=== PATIENT | male | born 1945 | race Two or more races ===

== ENCOUNTER 2018-03-10 04:17 | Emergency (ER) | payer MEDICARE, MEDICAID ==
[~2018-03-10] VITALS: Ht 165.1 cm; Wt 72.6 kg
[2018-03-10 07:42] VITALS: BP 138/78
== END 2018-03-10 07:58 | disposition home or self-care (01) ==
LOC: EDBD 04:19 → ER 04:19
DX: R07.89 Other chest pain (principal); M79.1 Myalgia
CPT/HCPCS: 71111

== ENCOUNTER 2018-12-17 14:23 | Emergency (ER) | payer MEDICAID, MEDICARE, OTHER ==
[~2018-12-17] VITALS: Ht 165.1 cm; Wt 72.6 kg
[2018-12-17 15:03] VITALS: BP 149/74
== END 2018-12-17 16:30 | disposition home or self-care (01) ==
LOC: ER 14:28
DX: S20.221A Contusion of right back wall of thorax, initial encounter (principal); V87.8XXA Person injured in other specified noncollision transport accidents involving motor vehicle (traffic), initial encounter; Y93.89 Activity, other specified; Y92.89 Other specified places as the place of occurrence of the external cause; Y99.8 Other external cause status
CPT/HCPCS: 71046; 71101

== ENCOUNTER → 2019-11-01 | Emergency (ER) | payer OTHER ==
[~2019-11-01] VITALS: Ht 165.1 cm; Wt 72.6 kg
[~2019-11-01] MED LIST: CIPR500T4 PO; HYDROmorphone HCL 2 MG/ML VL IV ONE; METOCLOPRAMIDE HCL 5MG/ml INJ 2ml VIAL IV ONE; SODIUM CHLORIDE 0.9% 1,000 ML IV ONE; TAMSULOSIN HYDROCHLORIDE 0.4 MG CAP PO ONE
[2019-11-01 09:17] VITALS: BP 131/66
[2019-11-01 09:31] LABS: Basophils # (auto) 0 10 ^3/uL (0-0.2); Basophils % (auto) 0.1 % (0.0-2.0); Eosinophils # (auto) 0 10 ^3/uL (0-0.8); Eosinophils % (auto) 0.4 % (0.0-7.0); Hematocrit 47.3 % (41.0-53.0); Hemoglobin 16.2 g/dL (13.5-17.5); Lymphocytes # (auto) 0.7 10 ^3/uL (0.4-5.4); Lymphocytes % (auto) 6.8 % (10.0-50.0); Mean Corpuscular Hemoglobin 30.7 pg (28.0-32.0); Mean Corpuscular Hgb Conc. 34.3 g/dL (32.0-36.0); Mean Corpuscular Volume 89.5 fL (80.0-100.0); Monocytes # (auto) 0.5 10 ^3/uL (0-1.3); Monocytes % (auto) 4.8 % (0.0-12.0); Neutrophils # (auto) 8.9 10 ^3/uL (1.6-8.6); Neutrophils % (auto) 87.9 % (37.0-80.0); Platelet Count (auto) 202 10^3/uL (140-450); Red Blood Cells 5.29 10^6/uL (4.5-5.90); Red Cell Distribution Width 13.4 % (11.8-14.3); White Blood Cell 10.1 10^3/uL (4.4-10.8)
[2019-11-01 09:32] LABS: Urine Bacteria NONE SEEN /hpf (None Seen); Urine Blood 3+ /uL (Negative); Urine Specific Gravity 1.012 (1.001-1.035); Urine WBC 10 /hpf (0 - 3)
[2019-11-01 09:55] LABS: Albumin 3.8 g/dL (3.4-5.0); Calcium 9.1 mg/dL (8.5-10.1); Potassium 4.3 mmol/L (3.5-5.1)
[2019-11-01 10:00] LABS: BUN/Creatinine Ratio 14.3; Bilirubin, Total 0.8 mg/dL (0.2-1.0); Total Protein 7.3 g/dL (6.4-8.2)
== END | disposition home or self-care (01) ==
LOC: ER 08:21
DX: N40.1 Benign prostatic hyperplasia with lower urinary tract symptoms (principal); R33.8 Other retention of urine; R31.9 Hematuria, unspecified; R73.9 Hyperglycemia, unspecified
CPT/HCPCS: 36415; 51702; 80053; 81001; 83690; 83735; 85025; 96374; 96375; 99284; J1170; J2765; J7030

== ENCOUNTER 2019-11-06 18:25 | Inpatient (IN) | payer OTHER ==
[~2019-11-06] VITALS: Ht 165.1 cm; Wt 68.9 kg
[2019-11-06 20:17] LABS: Urine Bacteria NONE SEEN /hpf (None Seen); Urine Blood 3+ /uL (Negative); Urine Mucus FEW (None Seen); Urine Specific Gravity 1.023 (1.001-1.035); Urine WBC 23 /hpf (0 - 3)
[2019-11-06] MEDS ORDERED: SODIUM CHLORIDE 0.9% 1,000 ML IV ONE (22:00)
[2019-11-06] MEDS ORDERED: HYDROcodone-ACET 5/325MG TAB PO PRN (22:00)
[2019-11-06] MEDS ORDERED: MORPHINE SULF INJ 2 MG/ML SYRINGE 1ML IV PRN (22:00)
[2019-11-06] MEDS ORDERED: DEXTROSE (50%) 50ML SYRG IV PRN (22:00)
[2019-11-06] MEDS ORDERED: LACTULOSE 20Gm/30ML SOLN PO ONE (22:00)
[2019-11-06] MEDS ORDERED: ACETAMINOPHEN 325 MG TAB PO PRN (22:00)
[2019-11-06] MEDS ORDERED: ONDANSETRON HCL 4 MG/2 ML VIAL IV PRN (22:00)
[2019-11-06 22:28] LABS: Basophils # (auto) 0 10 ^3/uL (0-0.2); Basophils % (auto) 0.2 % (0.0-2.0); Eosinophils # (auto) 0.3 10 ^3/uL (0-0.8); Eosinophils % (auto) 5.3 % (0.0-7.0); Hematocrit 45.4 % (41.0-53.0); Hemoglobin 15.7 g/dL (13.5-17.5); Lymphocytes % (auto) 15.8 % (10.0-50.0); Mean Corpuscular Hemoglobin 31.1 pg (28.0-32.0); Mean Corpuscular Hgb Conc. 34.5 g/dL (32.0-36.0); Mean Corpuscular Volume 89.9 fL (80.0-100.0); Monocytes # (auto) 0.6 10 ^3/uL (0-1.3); Neutrophils # (auto) 4.6 10 ^3/uL (1.6-8.6); Neutrophils % (auto) 69.7 % (37.0-80.0); Nucleated Red Blood Cells % 0.1 %; Platelet Count (auto) 205 10^3/uL (140-450); Red Blood Cells 5.05 10^6/uL (4.5-5.90); Red Cell Distribution Width 13.5 % (11.8-14.3); White Blood Cell 6.5 10^3/uL (4.4-10.8)
[2019-11-06 22:45] LABS: Albumin 3.2 g/dL (3.4-5.0); Calcium 8.9 mg/dL (8.5-10.1); Potassium 4.2 mmol/L (3.5-5.1)
[2019-11-06 22:49] LABS: BUN/Creatinine Ratio 20.6; Bilirubin, Total 0.5 mg/dL (0.2-1.0); INR 1.01 (0.9-1.15); Total Protein 7.3 g/dL (6.4-8.2)
--- NOTE | 2019-11-06 22:50 | NUR ---
MS admit from ER Patient admitted to tele/MS. Patient oriented to primary RN, unit, room, bed, and unit policies regarding patient care and visiting hours. Patient weighed by bedscale and encouraged to call if they need something. All questions and concerns addressed, patient verbalized understanding. At this time patient has no s/s of distress, SOB, or pain. Safety precautions maintained bed is in lowest position and bed rails 2x. Call light and bedside table are within reach.
[2019-11-06 23:30] VITALS: BP 134/75
[2019-11-06] MEDS: DOCUSATE SOD 100 MG CAP PO SCH (23:45)
[2019-11-06] MEDS: TAMSULOSIN HYDROCHLORIDE 0.4 MG CAP PO SCH (23:47)
[2019-11-06] MEDS: FINASTERIDE 5 MG TAB PO SCH (23:48)
[2019-11-06] MEDS: SENNA 8.6 MG TAB PO SCH (23:49)
[2019-11-06] MEDS: levoFLOXacin 750MG 150 ML IV SCH (23:50)
[2019-11-06] MEDS ORDERED: CIPR500T4 PO (23:51)
[2019-11-07] MEDS: ACCU-CHEK COMFORT CURVE STRIP VI SCH ×3 (00:17→08:00)
[2019-11-07] MEDS: InsuLIN REG 1unit/0.01ml Soln (100units/ml) SC SCH ×6 (04:00→20:00)
[2019-11-07 05:00] VITALS: BP 115/67
[2019-11-07 07:22] LABS: Basophils # (auto) 0 10 ^3/uL (0-0.2); Basophils % (auto) 0.3 % (0.0-2.0); Eosinophils # (auto) 0.2 10 ^3/uL (0-0.8); Eosinophils % (auto) 3.9 % (0.0-7.0); Hematocrit 45.1 % (41.0-53.0); Hemoglobin 15.8 g/dL (13.5-17.5); Lymphocytes # (auto) 0.6 10 ^3/uL (0.4-5.4); Lymphocytes % (auto) 10.6 % (10.0-50.0); Mean Corpuscular Hemoglobin 31.3 pg (28.0-32.0); Mean Corpuscular Volume 89.4 fL (80.0-100.0); Monocytes # (auto) 0.5 10 ^3/uL (0-1.3); Monocytes % (auto) 8.3 % (0.0-12.0); Neutrophils # (auto) 4.6 10 ^3/uL (1.6-8.6); Neutrophils % (auto) 76.9 % (37.0-80.0); Nucleated Red Blood Cells % 0.1 %; Platelet Count (auto) 203 10^3/uL (140-450); Red Blood Cells 5.04 10^6/uL (4.5-5.90); Red Cell Distribution Width 13.6 % (11.8-14.3)
[2019-11-07 07:39] LABS: BUN/Creatinine Ratio 21.8; Calcium 8.5 mg/dL (8.5-10.1); Potassium 3.9 mmol/L (3.5-5.1)
--- NOTE | 2019-11-07 08:00 | NUR ---
ASSESSMENT NOTE PT IS ALERT ORIENTED X4, RESTING IN BED COMFORTABLY, NO DISTRESS NOTED, ABLE TO SELF REPOSITION AND VERBALIS HIS DEMANDS, PAIN 0/10, CALL LIGHT WITHIN REACH
--- NOTE | 2019-11-07 09:30 | NUR ---
BM PT STATED I HAD 8 BOWEL MOVEMENT BETWEEN 5 IN THE MORNING AND NOW
--- NOTE | 2019-11-07 10:00 | NUR ---
GONZALEZ CATHETER PT HAS A LEG GONZALEZ BAG FROM HOME, SWITCHED FROM LEG BAG, TO GRAVITY BAG, PT VERBALIS UNDERSTANDING
[2019-11-07 10:36] VITALS: BP 106/63
--- NOTE | 2019-11-07 12:05 | NUR ---
PAGE DR DARNELL AGAIN TO OBTAIN A DIET ORDER
--- NOTE | 2019-11-07 12:15 | NUR ---
DR DARNELL IS HERE FOLLOWING UP ON PT
[2019-11-07] MEDS: DOCUSATE SOD 100 MG CAP PO SCH ×2 (12:20→22:17)
[2019-11-07] MEDS: FINASTERIDE 5 MG TAB PO SCH (12:20)
[2019-11-07] MEDS ORDERED: LACTULOSE 20Gm/30ML SOLN PO PRN (12:30)
[2019-11-07 13:00] VITALS: BP 122/70
--- NOTE | 2019-11-07 13:00 | NUR ---
PT TOLERATED DIET WELL, CONTINUE MONITORING
[2019-11-07 17:21] VITALS: BP 111/63
[2019-11-07] MEDS: SENNA 8.6 MG TAB PO SCH (17:46)
[2019-11-07] MEDS: TAMSULOSIN HYDROCHLORIDE 0.4 MG CAP PO SCH (17:46)
--- NOTE | 2019-11-07 18:21 | NUR ---
PT CONTINUE STABLE, CONTINUE MONITORING
--- NOTE | 2019-11-07 21:03 | NUR ---
Opening Shift Note Assumed care of patient, awake and alert. No S/S of distress/SOB or pain. Instructed on POC and to call for assist PRN, will continue to monitor for changes Q1hr and PRN.
[2019-11-07 22:00] VITALS: BP 121/62
[2019-11-07] MEDS: levoFLOXacin 750MG 150 ML IV SCH (22:17)
[2019-11-08] MEDS: InsuLIN REG 1unit/0.01ml Soln (100units/ml) SC SCH ×6 (04:00→20:00)
[2019-11-08 05:59] VITALS: BP 123/76
[2019-11-08 07:27] LABS: BUN/Creatinine Ratio 17.4; Calcium 8.6 mg/dL (8.5-10.1); Potassium 4.1 mmol/L (3.5-5.1)
[2019-11-08 07:29] LABS: Basophils # (auto) 0 10 ^3/uL (0-0.2); Basophils % (auto) 0.2 % (0.0-2.0); Eosinophils # (auto) 0.3 10 ^3/uL (0-0.8); Eosinophils % (auto) 4.9 % (0.0-7.0); Hematocrit 43.6 % (41.0-53.0); Hemoglobin 14.9 g/dL (13.5-17.5); Lymphocytes % (auto) 17.5 % (10.0-50.0); Mean Corpuscular Hemoglobin 30.8 pg (28.0-32.0); Mean Corpuscular Hgb Conc. 34.3 g/dL (32.0-36.0); Mean Corpuscular Volume 89.7 fL (80.0-100.0); Monocytes # (auto) 0.5 10 ^3/uL (0-1.3); Monocytes % (auto) 8.5 % (0.0-12.0); Neutrophils # (auto) 3.8 10 ^3/uL (1.6-8.6); Neutrophils % (auto) 68.9 % (37.0-80.0); Platelet Count (auto) 199 10^3/uL (140-450); Red Blood Cells 4.86 10^6/uL (4.5-5.90); Red Cell Distribution Width 13.3 % (11.8-14.3); White Blood Cell 5.5 10^3/uL (4.4-10.8)
[2019-11-08] MEDS: DOCUSATE SOD 100 MG CAP PO SCH ×2 (09:10→21:22)
[2019-11-08] MEDS: FINASTERIDE 5 MG TAB PO SCH (09:10)
[2019-11-08 09:31] VITALS: BP 122/66
--- NOTE | 2019-11-08 11:50 | NUR ---
DR DARNELL AT BED SIDE FOLLOWNG UP ON PT WITH NEW ORDERS
[2019-11-08 12:56] VITALS: BP 127/74
[2019-11-08] MEDS: TAMSULOSIN HYDROCHLORIDE 0.4 MG CAP PO SCH (17:26)
[2019-11-08] MEDS: SENNA 8.6 MG TAB PO SCH (17:26)
[2019-11-08 17:52] VITALS: BP 122/67
--- NOTE | 2019-11-08 18:22 | NUR ---
PT CONTINUE STABLE, CONTINUE MONITORING
[2019-11-08] MEDS: levoFLOXacin 750MG 150 ML IV SCH (21:22)
[2019-11-08 22:00] VITALS: BP 104/54
[2019-11-09 05:00] VITALS: BP 104/56
[2019-11-09 06:21] LABS: Basophils # (auto) 0 10 ^3/uL (0-0.2); Basophils % (auto) 0.2 % (0.0-2.0); Eosinophils # (auto) 0.3 10 ^3/uL (0-0.8); Eosinophils % (auto) 4.7 % (0.0-7.0); Hematocrit 40.9 % (41.0-53.0); Hemoglobin 14.4 g/dL (13.5-17.5); Lymphocytes # (auto) 0.8 10 ^3/uL (0.4-5.4); Mean Corpuscular Hemoglobin 31.3 pg (28.0-32.0); Mean Corpuscular Hgb Conc. 35.1 g/dL (32.0-36.0); Mean Corpuscular Volume 89.1 fL (80.0-100.0); Monocytes # (auto) 0.5 10 ^3/uL (0-1.3); Neutrophils % (auto) 71.1 % (37.0-80.0); Platelet Count (auto) 197 10^3/uL (140-450); Red Blood Cells 4.59 10^6/uL (4.5-5.90); Red Cell Distribution Width 13.5 % (11.8-14.3); White Blood Cell 5.6 10^3/uL (4.4-10.8)
[2019-11-09 06:35] LABS: BUN/Creatinine Ratio 20.7; Calcium 8.4 mg/dL (8.5-10.1); Potassium 3.8 mmol/L (3.5-5.1)
--- NOTE | 2019-11-09 08:10 | NUR ---
PT RESTING IN BED, NO DISTRESS NOTED. PT REPORTS NO PAIN AT THIS TIME, SIDE RAILS UP X 2 AND BED IN LOWEST LOCKED POSITION, WILL CONTINUE TO MONITOR.
[2019-11-09 09:00] VITALS: BP 103/59
[2019-11-09] MEDS: DOCUSATE SOD 100 MG CAP PO SCH (10:57)
[2019-11-09] MEDS: FINASTERIDE 5 MG TAB PO SCH (10:58)
[2019-11-09 12:48] VITALS: BP 105/56
[2019-11-09 14:45] VITALS: BP 105/56
--- NOTE | 2019-11-09 15:47 | NUR ---
Discharge instructions given as ordered. Encourage to follow up with PMD and Urology as instructed. All questions and concerns addressed. Patient verbalized understanding. Medication reconciliation form completed and copy given to patient. IV removed with catheter intact, pressure dressing applied, hinton catheter removed and leg bag applied per MD request. Patient taken to vehicle via wheelchair with all personal belongings, accompanied by staff. No distress noted at time of departure.
== END 2019-11-09 15:00 | disposition home or self-care (01) | DRG 726 ==
LOC: ER 18:26 → CENTRAL 18:27
PROVIDERS: ADMIT Hospitalist; ATTEND Internal Medicine
DX: N40.1 Benign prostatic hyperplasia with lower urinary tract symptoms (principal); N39.0 Urinary tract infection, site not specified; N13.8 Other obstructive and reflux uropathy; K80.20 Calculus of gallbladder without cholecystitis without obstruction; K59.00 Constipation, unspecified; K40.90 Unilateral inguinal hernia, without obstruction or gangrene, not specified as recurrent; K57.30 Diverticulosis of large intestine without perforation or abscess without bleeding; E11.65 Type 2 diabetes mellitus with hyperglycemia; R33.8 Other retention of urine
CPT/HCPCS: 36415; 51702; 71045; 74176; 76705; 80048; 80053; 81001; 82962; 83036; 85025; 85610; 87081; 87086; 93005; 96365; G0378; J1956

== ENCOUNTER 2019-11-29 18:52 | Emergency (ER) | payer OTHER ==
[~2019-11-29] VITALS: Ht 165.1 cm; Wt 72.6 kg
[~2019-11-29 18:52] MED LIST changes: -HYDROmorphone HCL 2 MG/ML VL IV ONE; -METOCLOPRAMIDE HCL 5MG/ml INJ 2ml VIAL IV ONE; -SODIUM CHLORIDE 0.9% 1,000 ML IV ONE; -TAMSULOSIN HYDROCHLORIDE 0.4 MG CAP PO ONE
[2019-11-29 20:21] VITALS: BP 121/69
[2019-11-29 23:00] LABS: Urine Bacteria FEW /hpf (None Seen); Urine Blood 3+ /uL (Negative); Urine Mucus FEW (None Seen); Urine WBC 21 /hpf (0 - 3)
[2019-11-29] MEDS ORDERED: cefTRIAXone SOD 1,000 MG VL IM ONE (23:30)
== END 2019-11-29 23:35 | disposition home or self-care (01) ==
LOC: ER 18:52
DX: T83.091A Other mechanical complication of indwelling urethral catheter, initial encounter (principal); N39.0 Urinary tract infection, site not specified; Y83.9 Surgical procedure, unspecified as the cause of abnormal reaction of the patient, or of later complication, without mention of misadventure at the time of the procedure; Y92.89 Other specified places as the place of occurrence of the external cause
CPT/HCPCS: 81001; 96372; 99283; J0696

== ENCOUNTER 2019-12-13 22:22 | Emergency (ER) | payer OTHER ==
[~2019-12-13] VITALS: Ht 165.1 cm; Wt 72.6 kg
[2019-12-13 23:31] LABS: Urine Bacteria FEW /hpf (None Seen); Urine Blood Negative /uL (Negative); Urine Specific Gravity 1.018 (1.001-1.035); Urine WBC 11 /hpf (0 - 3)
[2019-12-13 23:52] VITALS: BP 127/22
[2019-12-13 23:53] LABS: Basophils # (auto) 0 10 ^3/uL (0-0.2); Basophils % (auto) 0.4 % (0.0-2.0); Eosinophils # (auto) 0.2 10 ^3/uL (0-0.8); Hematocrit 44.9 % (41.0-53.0); Hemoglobin 14.9 g/dL (13.5-17.5); Lymphocytes # (auto) 1.1 10 ^3/uL (0.4-5.4); Lymphocytes % (auto) 21.7 % (10.0-50.0); Mean Corpuscular Hgb Conc. 33.1 g/dL (32.0-36.0); Mean Corpuscular Volume 90.7 fL (80.0-100.0); Monocytes # (auto) 0.7 10 ^3/uL (0-1.3); Monocytes % (auto) 12.6 % (0.0-12.0); Neutrophils # (auto) 3.2 10 ^3/uL (1.6-8.6); Neutrophils % (auto) 61.3 % (37.0-80.0); Nucleated Red Blood Cells % 0.1 %; Platelet Count (auto) 205 10^3/uL (140-450); Red Blood Cells 4.95 10^6/uL (4.5-5.90); Red Cell Distribution Width 13.9 % (11.8-14.3); White Blood Cell 5.2 10^3/uL (4.4-10.8)
[2019-12-14 00:12] LABS: Albumin 3.2 g/dL (3.4-5.0); BUN/Creatinine Ratio 17.3; Calcium 8.2 mg/dL (8.5-10.1); Potassium 4.4 mmol/L (3.5-5.1)
[2019-12-14 00:15] LABS: Bilirubin, Total 0.7 mg/dL (0.2-1.0)
[2019-12-14] MEDS ORDERED: cefTRIAXone SOD 1,000 MG VL IM ONE (00:30)
[2019-12-14] MEDS ORDERED: LIDOCAINE 1% HCL (LOCAL ANESTH.) INJ 20ML MDV IJ ONE (00:30)
== END 2019-12-14 01:09 | disposition home or self-care (01) ==
LOC: ER 22:22
DX: N40.1 Benign prostatic hyperplasia with lower urinary tract symptoms (principal); N39.0 Urinary tract infection, site not specified; R11.2 Nausea with vomiting, unspecified
CPT/HCPCS: 36415; 80053; 81001; 85025; 87086; 96372; 99283; J0696; J2001

== ENCOUNTER 2020-04-20 08:46 | Emergency (ER) | payer OTHER ==
[~2020-04-20] VITALS: Ht 165.1 cm; Wt 72.6 kg
[2020-04-20 09:47] LABS: Basophils # (auto) 0 10 ^3/uL (0-0.2); Basophils % (auto) 0.4 % (0.0-2.0); Eosinophils # (auto) 0.2 10 ^3/uL (0-0.8); Eosinophils % (auto) 4.7 % (0.0-7.0); Hematocrit 44.6 % (41.0-53.0); Hemoglobin 15.2 g/dL (13.5-17.5); Lymphocytes # (auto) 0.8 10 ^3/uL (0.4-5.4); Lymphocytes % (auto) 22.3 % (10.0-50.0); Mean Corpuscular Hemoglobin 30.6 pg (28.0-32.0); Mean Corpuscular Hgb Conc. 34.1 g/dL (32.0-36.0); Mean Corpuscular Volume 89.8 fL (80.0-100.0); Monocytes # (auto) 0.4 10 ^3/uL (0-1.3); Monocytes % (auto) 11.1 % (0.0-12.0); Neutrophils # (auto) 2.1 10 ^3/uL (1.6-8.6); Neutrophils % (auto) 61.5 % (37.0-80.0); Nucleated Red Blood Cells % 0.1 %; Platelet Count (auto) 192 10^3/uL (140-450); Red Blood Cells 4.96 10^6/uL (4.5-5.90); Red Cell Distribution Width 13.6 % (11.8-14.3); White Blood Cell 3.4 10^3/uL (4.4-10.8)
[2020-04-20] MEDS ORDERED: SODIUM CHLORIDE 0.9% 1,000 ML IV ONE (09:52)
[2020-04-20] MEDS ORDERED: SODIUM CHLORIDE 0.9% 500 ML IVB ONE (09:52)
[2020-04-20 09:57] LABS: Albumin 3.3 g/dL (3.4-5.0); Amylase 73 U/L (25-115); Anion Gap 4 (5-15); Blood Urea Nitrogen 17 mg/dL (7-18); Calcium 8.3 mg/dL (8.5-10.1); Carbon Dioxide 28 mmol/L (21-32); Chloride 108 mmol/L (98-107); Glucose 102 mg/dL (74-106); Lipase 168 U/L (73-393); Magnesium 2.4 mg/dL (1.6-2.6); Sodium 140 mmol/L (136-145)
[2020-04-20] MEDS ORDERED: METOCLOPRAMIDE HCL 5MG/ml INJ 2ml VIAL IV ONE (10:00)
[2020-04-20] MEDS ORDERED: KETOROLAC TROMETH 30 MG/ML 1ML VIAL IV ONE (10:00)
[2020-04-20 10:04] LABS: Alanine Aminotransferase 321 U/L (16-61); Alkaline Phosphatase 237 U/L (45-117); Aspartate Aminotransferase 140 U/L (15-37); BUN/Creatinine Ratio 20.7; Bilirubin, Total 1.4 mg/dL (0.2-1.0); GFR African American 118 mL/min; GFR Non-African American 97 mL/min; Total Protein 6.8 g/dL (6.4-8.2)
[2020-04-20 12:07] VITALS: BP 117/64
== END 2020-04-20 12:32 | disposition home or self-care (01) ==
LOC: ER 08:46
DX: R10.11 Right upper quadrant pain (principal); R74.8 Abnormal levels of other serum enzymes; E44.1 Mild protein-calorie malnutrition; R11.2 Nausea with vomiting, unspecified; N40.0 Benign prostatic hyperplasia without lower urinary tract symptoms; Z68.26 Body mass index [BMI] 26.0-26.9, adult; Z87.440 Personal history of urinary (tract) infections; Z79.899 Other long term (current) drug therapy
CPT/HCPCS: 36415; 71045; 76705; 80053; 82150; 83690; 83735; 84484; 85025; 93005; 96361; 96374; 96375; 99285; J1885; J2765; J7030; J7040

== ENCOUNTER 2021-04-03 08:06 | Inpatient (IN) | payer OTHER ==
[~2021-04-03] VITALS: Ht 165.1 cm; Wt 66.3 kg
[2021-04-03] MEDS ORDERED: SODIUM CHLORIDE 0.9% 1,000 ML IV ONE (08:45)
[2021-04-03 08:48] LABS: Basophils # (auto) 0 10 ^3/uL (0-0.2); Basophils % (auto) 0.4 % (0.0-2.0); Eosinophils # (auto) 0.1 10 ^3/uL (0-0.8); Eosinophils % (auto) 2.1 % (0.0-7.0); Hemoglobin 15.4 g/dL (13.5-17.5); Lymphocytes # (auto) 0.8 10 ^3/uL (0.4-5.4); Mean Corpuscular Hemoglobin 30.5 pg (28.0-32.0); Mean Corpuscular Hgb Conc. 34.1 g/dL (32.0-36.0); Mean Corpuscular Volume 89.3 fL (80.0-100.0); Monocytes # (auto) 0.5 10 ^3/uL (0-1.3); Monocytes % (auto) 9.5 % (0.0-12.0); Neutrophils # (auto) 3.9 10 ^3/uL (1.6-8.6); Nucleated Red Blood Cells % 0.1 %; Red Blood Cells 5.04 10^6/uL (4.5-5.90); Red Cell Distribution Width 13.7 % (11.8-14.3); White Blood Cell 5.3 10^3/uL (4.4-10.8)
[2021-04-03 09:02] LABS: Anion Gap 5 (5-15); Blood Urea Nitrogen 14 mg/dL (7-18); Calcium 8.5 mg/dL (8.5-10.1); Carbon Dioxide 29 mmol/L (21-32); Chloride 108 mmol/L (98-107); Glucose 114 mg/dL (74-106); Potassium 3.9 mmol/L (3.5-5.1); Sodium 142 mmol/L (136-145)
[2021-04-03 09:04] LABS: Alanine Aminotransferase 187 U/L (16-61); Aspartate Aminotransferase 189 U/L (15-37); BUN/Creatinine Ratio 14.7; GFR African American 99 mL/min; GFR Non-African American 82 mL/min
[2021-04-03 09:09] LABS: Alkaline Phosphatase 280 U/L (45-117); Bilirubin, Total 2.8 mg/dL (0.2-1.0); Total Protein 6.9 g/dL (6.4-8.2)
[2021-04-03 10:16] LABS: Urine Bacteria NONE SEEN /hpf (None Seen); Urine Blood Negative /uL (Negative); Urine Mucus FEW (None Seen); Urine Specific Gravity 1.026 (1.001-1.035); Urine WBC 1 /hpf (0 - 3)
[2021-04-03] MEDS ORDERED: ONDANSETRON HCL 4 MG/2 ML VIAL IV ONE (11:00)
[2021-04-03] MEDS ORDERED: MORPHINE SULFATE 4 MG/ML SYR/VIAL IV ONE (11:00)
[2021-04-03] MEDS ORDERED: MORPHINE SULFATE INJECTION 2 MG/ML SYRG IV PRN (12:30)
[2021-04-03] MEDS ORDERED: NITROGLYCERIN 0.4 MG SL TAB SL PRN (12:30)
[2021-04-03] MEDS: D5W/SOD CHL 0.45%/KCL 20MEQ 1,000 ML IV SCH ×2 (12:30→12:48)
[2021-04-03] MEDS: metroNIDAZOLE 500MG/100ML 100 ML IV SCH ×2 (14:00→22:46)
[2021-04-03] MEDS: MORPHINE SULFATE INJECTION 2 MG/ML SYRG IV PRN (15:19)
[2021-04-03] MEDS: cefTRIAXone 1GM/50ML D5W 50 ML IV SCH (15:19)
[2021-04-03] MEDS: ONDANSETRON HCL 4 MG/2 ML VIAL IV PRN (15:20)
[2021-04-04] MEDS: D5W/SOD CHL 0.45%/KCL 20MEQ 1,000 ML IV SCH ×2 (05:53→08:53)
[2021-04-04] MEDS: metroNIDAZOLE 500MG/100ML 100 ML IV SCH ×3 (06:00→22:38)
[2021-04-04 06:44] LABS: Basophils # (auto) 0 10 ^3/uL (0-0.2); Basophils % (auto) 0.5 % (0.0-2.0); Eosinophils # (auto) 0.2 10 ^3/uL (0-0.8); Hemoglobin 13.9 g/dL (13.5-17.5); Lymphocytes # (auto) 0.8 10 ^3/uL (0.4-5.4); Mean Corpuscular Hemoglobin 31.2 pg (28.0-32.0); Mean Corpuscular Hgb Conc. 34.8 g/dL (32.0-36.0); Mean Corpuscular Volume 89.9 fL (80.0-100.0); Monocytes # (auto) 0.4 10 ^3/uL (0-1.3); Monocytes % (auto) 10.2 % (0.0-12.0); Neutrophils # (auto) 2.6 10 ^3/uL (1.6-8.6); Neutrophils % (auto) 63.3 % (37.0-80.0); Red Blood Cells 4.45 10^6/uL (4.5-5.90); Red Cell Distribution Width 13.8 % (11.8-14.3)
[2021-04-04 06:50] LABS: INR 1.07 (0.9-1.15); Partial Thromboplastin Time 26.8 sec (23.6-33.0)
[2021-04-04 08:00] LABS: Potassium 3.7 mmol/L (3.5-5.1)
[2021-04-04 08:27] LABS: Albumin 2.7 g/dL (3.4-5.0); BUN/Creatinine Ratio 16.7; Bilirubin, Total 1.1 mg/dL (0.2-1.0); Calcium 8.3 mg/dL (8.5-10.1); Total Protein 6.3 g/dL (6.4-8.2)
[2021-04-04] MEDS: cefTRIAXone 1GM/50ML D5W 50 ML IV SCH (09:14)
[2021-04-04] MEDS: PANTOPRAZOLE 40 MG/10 ML VIAL INJ IV SCH (09:14)
[2021-04-04 10:01] VITALS: BP 122/68
[2021-04-04 13:00] VITALS: BP 144/77
[2021-04-04 17:00] VITALS: BP 154/82
[2021-04-04] MEDS ORDERED: TERB250T86 PO (17:14)
[2021-04-04] MEDS ORDERED: OMEP-260 PO (17:14)
[2021-04-04] MEDS ORDERED: TAMS0.4C36 PO (17:14)
[2021-04-04] MEDS ORDERED: LISI-275 PO (17:14)
[2021-04-04 17:30] VITALS: BP 146/73
[2021-04-04 22:00] VITALS: BP 126/55
[2021-04-05] MEDS: D5W/SOD CHL 0.45%/KCL 20MEQ 1,000 ML IV SCH ×3 (02:04→16:39)
[2021-04-05 05:00] VITALS: BP 117/68
[2021-04-05] MEDS: metroNIDAZOLE 500MG/100ML 100 ML IV SCH ×3 (05:45→22:36)
[2021-04-05] MEDS: MORPHINE SULFATE INJECTION 2 MG/ML SYRG IV PRN ×3 (05:49→23:35)
[2021-04-05] MEDS: cefTRIAXone 1GM/50ML D5W 50 ML IV SCH (08:26)
[2021-04-05] MEDS: PANTOPRAZOLE 40 MG/10 ML VIAL INJ IV SCH (08:26)
[2021-04-05 09:00] VITALS: BP 111/70
[2021-04-05 09:58] LABS: Albumin 2.7 g/dL (3.4-5.0); Bilirubin, Direct 0.5 mg/dL (0-0.2)
[2021-04-05 10:01] LABS: Bilirubin, Total 0.8 mg/dL (0.2-1.0); Total Protein 6.5 g/dL (6.4-8.2)
[2021-04-05] MEDS ORDERED: LORazepam 2MG/ML-1ML VIAL IV ONE (11:00)
[2021-04-05 13:00] VITALS: BP 136/72
[2021-04-05 17:00] VITALS: BP 148/78
[2021-04-05 22:00] VITALS: BP 128/72
[2021-04-06] MEDS: D5W/SOD CHL 0.45%/KCL 20MEQ 1,000 ML IV SCH ×3 (00:30→21:30)
[2021-04-06] MEDS: MORPHINE SULFATE INJECTION 2 MG/ML SYRG IV PRN (04:40)
[2021-04-06 05:00] VITALS: BP 111/68
[2021-04-06] MEDS: metroNIDAZOLE 500MG/100ML 100 ML IV SCH ×2 (05:25→13:34)
[2021-04-06] MEDS: PANTOPRAZOLE 40 MG/10 ML VIAL INJ IV SCH (08:42)
[2021-04-06] MEDS: cefTRIAXone 1GM/50ML D5W 50 ML IV SCH (08:42)
[2021-04-06 09:00] VITALS: BP 130/74
[2021-04-06 13:00] VITALS: BP 138/79
[2021-04-06 13:37] LABS: Basophils # (auto) 0 10 ^3/uL (0-0.2); Basophils % (auto) 0.3 % (0.0-2.0); Eosinophils # (auto) 0.3 10 ^3/uL (0-0.8); Eosinophils % (auto) 5.5 % (0.0-7.0); Hematocrit 44.7 % (41.0-53.0); Hemoglobin 15.1 g/dL (13.5-17.5); Lymphocytes # (auto) 0.8 10 ^3/uL (0.4-5.4); Lymphocytes % (auto) 18.6 % (10.0-50.0); Mean Corpuscular Hemoglobin 30.3 pg (28.0-32.0); Mean Corpuscular Hgb Conc. 33.8 g/dL (32.0-36.0); Mean Corpuscular Volume 89.4 fL (80.0-100.0); Monocytes # (auto) 0.5 10 ^3/uL (0-1.3); Monocytes % (auto) 11.5 % (0.0-12.0); Neutrophils # (auto) 2.9 10 ^3/uL (1.6-8.6); Neutrophils % (auto) 64.1 % (37.0-80.0); Nucleated Red Blood Cells % 0.1 %; Red Blood Cells 4.99 10^6/uL (4.5-5.90); Red Cell Distribution Width 13.5 % (11.8-14.3); White Blood Cell 4.5 10^3/uL (4.4-10.8)
[2021-04-06 13:58] LABS: INR 1.08 (0.9-1.15); Partial Thromboplastin Time 26.6 sec (23.6-33.0)
[2021-04-06 14:03] LABS: Calcium 8.6 mg/dL (8.5-10.1)
[2021-04-06 14:05] LABS: BUN/Creatinine Ratio 9.1
[2021-04-06 17:00] VITALS: BP 133/79
[2021-04-06] MEDS: TAMSULOSIN HYDROCHLORIDE 0.4 MG CAP PO SCH (17:13)
[2021-04-06 20:00] VITALS: BP 129/71
[2021-04-06 22:00] VITALS: BP 129/71
[2021-04-07 04:58] VITALS: BP 112/65
[2021-04-07] MEDS: D5W/SOD CHL 0.45%/KCL 20MEQ 1,000 ML IV SCH ×2 (06:58→16:30)
[2021-04-07 08:00] VITALS: BP 131/75
[2021-04-07] MEDS: PANTOPRAZOLE 40 MG/10 ML VIAL INJ IV SCH (09:03)
[2021-04-07] MEDS ORDERED: LACTULOSE 20Gm/30ML SOLN PO PRN (10:30)
[2021-04-07] MEDS ORDERED: IOHEXOL 300 MG/ML 100ML BOTTLE IJ ONE (10:40)
[2021-04-07] MEDS ORDERED: fentaNYL CITRATE 100 MCG/2 ML VL ONE ×3 (10:54→13:56)
[2021-04-07] MEDS ORDERED: MEPERIDINE HCL (50 MG/ML) 1 ML VIAL ONE (10:54)
[2021-04-07] MEDS ORDERED: MIDAZOLAM HCL 2MG/2ML 2ml VIAL (1mg/ml) ONE (10:54)
[2021-04-07] MEDS ORDERED: ceFAZolin 1GM/50ML 100 ML IV ONE (11:03)
[2021-04-07] MEDS ORDERED: SUCCINYLCHOLINE CHLORIDE 20 MG/ML 10ML VIAL IV ONE (11:11)
[2021-04-07] MEDS ORDERED: PROPOFOL 10 MG/ML 20 ML IV ONE (11:32)
[2021-04-07] MEDS ORDERED: ROCURONIUM 10MG/ML 10ML VIAL IV ONE (11:32)
[2021-04-07] MEDS ORDERED: DexAMETHasone SOD PHOS 10MG/1ML VIAL INJ ONE (11:32)
[2021-04-07] MEDS ORDERED: ePHEDrine SULFATE 50 MG/ML AMP IV PRN (14:00)
[2021-04-07] MEDS ORDERED: MIDAZOLAM HCL 2MG/2ML 2ml VIAL (1mg/ml) IV PRN (14:00)
[2021-04-07] MEDS ORDERED: MORPHINE SULFATE 4 MG/ML SYR/VIAL IV PRN (14:00)
[2021-04-07] MEDS ORDERED: LABETALOL HCL 5 MG/ML 4ML SYRINGE IV PRN (14:00)
[2021-04-07] MEDS ORDERED: HYDROmorphone HCL 2 MG/ML VL IV PRN (14:00)
[2021-04-07] MEDS ORDERED: ONDANSETRON HCL 4 MG/2 ML VIAL IV PRN (14:00)
[2021-04-07 16:32] VITALS: BP 169/86
[2021-04-07] MEDS: TAMSULOSIN HYDROCHLORIDE 0.4 MG CAP PO SCH (17:00)
[2021-04-07 18:20] VITALS: BP 150/95
[2021-04-07 22:00] VITALS: BP 144/74
[2021-04-07] MEDS: MORPHINE SULFATE INJECTION 2 MG/ML SYRG IV PRN (23:38)
[2021-04-08] MEDS: D5W/SOD CHL 0.45%/KCL 20MEQ 1,000 ML IV SCH ×2 (02:54→12:39)
[2021-04-08] MEDS: MORPHINE SULFATE INJECTION 2 MG/ML SYRG IV PRN ×5 (03:46→22:37)
[2021-04-08 05:00] VITALS: BP 130/72
[2021-04-08 06:36] LABS: Basophils # (auto) 0 10 ^3/uL (0-0.2); Basophils % (auto) 0.1 % (0.0-2.0); Eosinophils # (auto) 0 10 ^3/uL (0-0.8); Eosinophils % (auto) 0.1 % (0.0-7.0); Hematocrit 44.4 % (41.0-53.0); Hemoglobin 15.1 g/dL (13.5-17.5); Lymphocytes # (auto) 0.7 10 ^3/uL (0.4-5.4); Mean Corpuscular Hemoglobin 30.4 pg (28.0-32.0); Mean Corpuscular Volume 89.3 fL (80.0-100.0); Monocytes # (auto) 0.7 10 ^3/uL (0-1.3); Monocytes % (auto) 7.5 % (0.0-12.0); Neutrophils # (auto) 8.4 10 ^3/uL (1.6-8.6); Neutrophils % (auto) 85.3 % (37.0-80.0); Red Blood Cells 4.97 10^6/uL (4.5-5.90); Red Cell Distribution Width 13.6 % (11.8-14.3); White Blood Cell 9.8 10^3/uL (4.4-10.8)
[2021-04-08 06:50] LABS: Albumin 2.4 g/dL (3.4-5.0); Magnesium 1.8 mg/dL (1.6-2.6); Potassium 4.1 mmol/L (3.5-5.1)
[2021-04-08 06:52] LABS: BUN/Creatinine Ratio 6.3
[2021-04-08 06:55] LABS: Bilirubin, Total 0.9 mg/dL (0.2-1.0); Total Protein 5.9 g/dL (6.4-8.2)
[2021-04-08 09:30] VITALS: BP 151/84
[2021-04-08] MEDS: PANTOPRAZOLE 40 MG/10 ML VIAL INJ IV SCH (09:33)
[2021-04-08 13:00] VITALS: BP 152/83
[2021-04-08] MEDS: TAMSULOSIN HYDROCHLORIDE 0.4 MG CAP PO SCH (13:20)
[2021-04-08] MEDS ORDERED: TPN PER PHARMACY 500 ML IV SCH (15:00)
[2021-04-08 16:30] VITALS: BP 136/80
[2021-04-08] MEDS ORDERED: AMINO ACID INFUSION IN D10W 1,000 ML IV NR (20:00)
[2021-04-08 22:00] VITALS: BP 139/79
[2021-04-09] MEDS ORDERED: DEXTROSE (50%) 50ML SYRG IV SCH
[2021-04-09] MEDS: ACCU-CHEK COMFORT CURVE STRIP VI SCH ×5 (00:11→23:55)
[2021-04-09] MEDS: InsuLIN REG 1unit/0.01ml Soln (100units/ml) SC SCH ×4 (00:14→17:42)
[2021-04-09] MEDS: D5W/SOD CHL 0.45%/KCL 20MEQ 1,000 ML IV SCH ×3 (00:30→18:30)
[2021-04-09] MEDS: MORPHINE SULFATE INJECTION 2 MG/ML SYRG IV PRN ×4 (01:36→20:45)
[2021-04-09 05:00] VITALS: BP 155/82
[2021-04-09 05:15] LABS: Basophils # (auto) 0 10 ^3/uL (0-0.2); Basophils % (auto) 0.2 % (0.0-2.0); Eosinophils # (auto) 0 10 ^3/uL (0-0.8); Eosinophils % (auto) 0.1 % (0.0-7.0); Hematocrit 44.8 % (41.0-53.0); Hemoglobin 15.4 g/dL (13.5-17.5); Lymphocytes # (auto) 0.6 10 ^3/uL (0.4-5.4); Lymphocytes % (auto) 4.8 % (10.0-50.0); Mean Corpuscular Hemoglobin 30.5 pg (28.0-32.0); Mean Corpuscular Hgb Conc. 34.3 g/dL (32.0-36.0); Mean Corpuscular Volume 88.9 fL (80.0-100.0); Monocytes # (auto) 1.1 10 ^3/uL (0-1.3); Monocytes % (auto) 8.9 % (0.0-12.0); Neutrophils # (auto) 10.6 10 ^3/uL (1.6-8.6); Red Blood Cells 5.04 10^6/uL (4.5-5.90); Red Cell Distribution Width 13.6 % (11.8-14.3); White Blood Cell 12.3 10^3/uL (4.4-10.8)
[2021-04-09 05:29] LABS: Albumin 2.6 g/dL (3.4-5.0); Potassium 3.8 mmol/L (3.5-5.1)
[2021-04-09 05:31] LABS: Phosphorus 2.2 mg/dL (2.5-4.90)
[2021-04-09 05:33] LABS: BUN/Creatinine Ratio 9.2; Calcium 8.7 mg/dL (8.5-10.1); Total Protein 6.7 g/dL (6.4-8.2)
[2021-04-09 05:47] LABS: Pre Albumin 12.9 mg/dL (20.0-40.0)
[2021-04-09 09:00] VITALS: BP 126/76
[2021-04-09] MEDS: PANTOPRAZOLE 40 MG/10 ML VIAL INJ IV SCH (09:22)
[2021-04-09] MEDS: TAMSULOSIN HYDROCHLORIDE 0.4 MG CAP PO SCH (11:44)
[2021-04-09] MEDS ORDERED: cefTRIAXone 1GM/50ML D5W 50 ML IV ONE (12:15)
[2021-04-09 13:00] VITALS: BP 124/71
[2021-04-09] MEDS: metroNIDAZOLE 500MG/100ML 100 ML IV SCH ×2 (14:00→22:00)
[2021-04-09 17:00] VITALS: BP 150/85
[2021-04-09] MEDS ORDERED: PPN PER PHARMACY IV NR ×10 (20:00)
[2021-04-09] MEDS: ONDANSETRON HCL 4 MG/2 ML VIAL IV PRN (20:45)
[2021-04-09 22:00] VITALS: BP 150/77
[2021-04-10] MEDS: InsuLIN REG 1unit/0.01ml Soln (100units/ml) SC SCH ×4 (00:09→17:26)
[2021-04-10] MEDS: MORPHINE SULFATE INJECTION 2 MG/ML SYRG IV PRN ×5 (00:09→21:53)
[2021-04-10] MEDS: D5W/SOD CHL 0.45%/KCL 20MEQ 1,000 ML IV SCH ×3 (04:30→21:55)
[2021-04-10 05:39] LABS: Basophils # (auto) 0 10 ^3/uL (0-0.2); Basophils % (auto) 0.1 % (0.0-2.0); Eosinophils # (auto) 0.1 10 ^3/uL (0-0.8); Eosinophils % (auto) 0.6 % (0.0-7.0); Hematocrit 41.7 % (41.0-53.0); Hemoglobin 14.6 g/dL (13.5-17.5); Lymphocytes # (auto) 0.7 10 ^3/uL (0.4-5.4); Mean Corpuscular Hemoglobin 31.1 pg (28.0-32.0); Mean Corpuscular Hgb Conc. 34.9 g/dL (32.0-36.0); Mean Corpuscular Volume 89.2 fL (80.0-100.0); Monocytes # (auto) 1.1 10 ^3/uL (0-1.3); Neutrophils # (auto) 9.9 10 ^3/uL (1.6-8.6); Neutrophils % (auto) 84.3 % (37.0-80.0); Red Blood Cells 4.68 10^6/uL (4.5-5.90); Red Cell Distribution Width 13.4 % (11.8-14.3); White Blood Cell 11.7 10^3/uL (4.4-10.8)
[2021-04-10] MEDS: metroNIDAZOLE 500MG/100ML 100 ML IV SCH ×3 (05:44→21:03)
[2021-04-10] MEDS: ACCU-CHEK COMFORT CURVE STRIP VI SCH ×3 (05:44→17:25)
[2021-04-10 05:46] LABS: Potassium 3.7 mmol/L (3.5-5.1)
[2021-04-10 05:50] LABS: Albumin 2.3 g/dL (3.4-5.0); BUN/Creatinine Ratio 20.6; Calcium 8.9 mg/dL (8.5-10.1); Magnesium 1.9 mg/dL (1.6-2.6)
[2021-04-10 06:28] LABS: Bilirubin, Total 0.8 mg/dL (0.2-1.0); Phosphorus 2.7 mg/dL (2.5-4.90); Total Protein 6.5 g/dL (6.4-8.2)
[2021-04-10 09:00] VITALS: BP 149/84
[2021-04-10 09:50] LABS: INR 1.01 (0.9-1.15); Partial Thromboplastin Time 28.4 sec (23.6-33.0)
[2021-04-10] MEDS: cefTRIAXone 1GM/50ML D5W 50 ML IV SCH (12:34)
[2021-04-10] MEDS: PANTOPRAZOLE 40 MG/10 ML VIAL INJ IV SCH (12:34)
[2021-04-10 13:17] VITALS: BP 151/76
[2021-04-10 17:00] VITALS: BP 145/80
[2021-04-10] MEDS: TAMSULOSIN HYDROCHLORIDE 0.4 MG CAP PO SCH (17:25)
[2021-04-10] MEDS ORDERED: TPN PER PHARMACY IV NR ×11 (20:00)
[2021-04-10] MEDS ORDERED: POTASSIUM PHOSP 26.4MEQ(18MMOL) IN NS 100 ML IV ONE (21:00)
[2021-04-10] MEDS: AMINO ACID INFUSION IN D10W 1,000 ML IV NR (21:45)
[2021-04-10 22:00] VITALS: BP 158/87
[2021-04-10] MEDS ORDERED: MAGNESIUM SULFATE 1GM/100ML 100 ML IV ONE (23:00)
[2021-04-11] MEDS: ACCU-CHEK COMFORT CURVE STRIP VI SCH ×4 (00:41→17:54)
[2021-04-11] MEDS: InsuLIN REG 1unit/0.01ml Soln (100units/ml) SC SCH ×4 (00:42→17:54)
[2021-04-11] MEDS: MORPHINE SULFATE INJECTION 2 MG/ML SYRG IV PRN ×4 (01:14→18:37)
[2021-04-11 05:00] VITALS: BP 148/79
[2021-04-11] MEDS: metroNIDAZOLE 500MG/100ML 100 ML IV SCH ×3 (06:00→21:20)
[2021-04-11 06:30] LABS: Potassium 3.7 mmol/L (3.5-5.1)
[2021-04-11 06:52] LABS: Albumin 2.1 g/dL (3.4-5.0); BUN/Creatinine Ratio 22.4; Bilirubin, Total 0.9 mg/dL (0.2-1.0); Calcium 8.2 mg/dL (8.5-10.1); Magnesium 2.4 mg/dL (1.6-2.6); Phosphorus 2.8 mg/dL (2.5-4.90); Total Protein 6.3 g/dL (6.4-8.2)
[2021-04-11] MEDS: cefTRIAXone 1GM/50ML D5W 50 ML IV SCH (08:43)
[2021-04-11 09:03] VITALS: BP 132/80
[2021-04-11] MEDS: PANTOPRAZOLE 40 MG/10 ML VIAL INJ IV SCH (09:51)
[2021-04-11] MEDS: D5W/SOD CHL 0.45%/KCL 20MEQ 1,000 ML IV SCH ×2 (10:30→22:06)
[2021-04-11 12:54] VITALS: BP 132/85
[2021-04-11 16:24] VITALS: BP 118/74
[2021-04-11] MEDS: TAMSULOSIN HYDROCHLORIDE 0.4 MG CAP PO SCH ×2 (17:58→18:00)
[2021-04-11] MEDS: AMINO ACID INFUSION IN D10W 1,000 ML IV NR (19:49)
[2021-04-11] MEDS ORDERED: TPN PER PHARMACY IV NR ×11 (20:00)
[2021-04-11 22:00] VITALS: BP 135/78
[2021-04-12 05:00] VITALS: BP 144/76
[2021-04-12] MEDS: metroNIDAZOLE 500MG/100ML 100 ML IV SCH (05:34)
[2021-04-12] MEDS: MORPHINE SULFATE INJECTION 2 MG/ML SYRG IV PRN (06:26)
[2021-04-12] MEDS: D5W/SOD CHL 0.45%/KCL 20MEQ 1,000 ML IV SCH ×2 (06:30→16:16)
[2021-04-12 09:00] VITALS: BP 141/81
[2021-04-12] MEDS: cefTRIAXone 1GM/50ML D5W 50 ML IV SCH (09:56)
[2021-04-12] MEDS: PANTOPRAZOLE 40 MG/10 ML VIAL INJ IV SCH (10:23)
[2021-04-12] MEDS ORDERED: GASTROGRAFIN 120 ML SOL ONE (11:28)
[2021-04-12 13:00] VITALS: BP 133/74
[2021-04-12 17:00] VITALS: BP 147/81
[2021-04-12] MEDS: TAMSULOSIN HYDROCHLORIDE 0.4 MG CAP PO SCH (18:00)
[2021-04-12] MEDS: HYDROcodone-ACET 5/325MG TAB PO PRN (18:11)
[2021-04-12 22:00] VITALS: BP 126/76
[2021-04-13] MEDS: HYDROcodone-ACET 5/325MG TAB PO PRN ×2 (00:10→20:32)
[2021-04-13] MEDS: D5W/SOD CHL 0.45%/KCL 20MEQ 1,000 ML IV SCH (04:40)
[2021-04-13 05:00] VITALS: BP 117/72
[2021-04-13 08:55] VITALS: BP 127/78
[2021-04-13] MEDS: PANTOPRAZOLE 40 MG/10 ML VIAL INJ IV SCH (11:31)
[2021-04-13 12:45] VITALS: BP 149/76
[2021-04-13 17:00] VITALS: BP 156/88
[2021-04-13] MEDS: TAMSULOSIN HYDROCHLORIDE 0.4 MG CAP PO SCH (18:00)
[2021-04-13] MEDS: metroNIDAZOLE 500 MG TAB PO SCH (21:18)
[2021-04-13 21:53] VITALS: BP 145/83
[2021-04-14 05:30] VITALS: BP 121/82
[2021-04-14] MEDS: metroNIDAZOLE 500 MG TAB PO SCH ×3 (05:34→21:32)
[2021-04-14 09:00] VITALS: BP 117/70
[2021-04-14] MEDS: levoFLOXacin 500 MG TAB PO SCH (09:46)
[2021-04-14] MEDS: LISINOPRIL 5 MG TAB PO SCH (09:46)
[2021-04-14 13:00] VITALS: BP 141/76
[2021-04-14] MEDS: HYDROcodone-ACET 5/325MG TAB PO PRN (13:58)
[2021-04-14 16:43] VITALS: BP 127/77
[2021-04-14] MEDS: TAMSULOSIN HYDROCHLORIDE 0.4 MG CAP PO SCH (18:03)
[2021-04-14] MEDS: ONDANSETRON HCL 4 MG/2 ML VIAL IV PRN (18:14)
[2021-04-14 21:56] VITALS: BP 151/83
[2021-04-15] MEDS: ONDANSETRON HCL 4 MG/2 ML VIAL IV PRN (04:36)
[2021-04-15] MEDS: MORPHINE SULFATE INJECTION 2 MG/ML SYRG IV PRN ×4 (04:36→23:07)
[2021-04-15] MEDS: metroNIDAZOLE 500 MG TAB PO SCH ×3 (05:23→22:50)
[2021-04-15 05:30] VITALS: BP 131/75
[2021-04-15 09:00] VITALS: BP 106/62
[2021-04-15] MEDS: LISINOPRIL 5 MG TAB PO SCH (09:59)
[2021-04-15] MEDS: levoFLOXacin 500 MG TAB PO SCH (09:59)
[2021-04-15 13:00] VITALS: BP 132/80
[2021-04-15 17:00] VITALS: BP 123/64
[2021-04-15] MEDS: TAMSULOSIN HYDROCHLORIDE 0.4 MG CAP PO SCH (17:56)
[2021-04-15 22:00] VITALS: BP 101/61
[2021-04-16 05:00] VITALS: BP 98/54
[2021-04-16 05:58] LABS: Basophils # (auto) 0 10 ^3/uL (0-0.2); Basophils % (auto) 0.4 % (0.0-2.0); Eosinophils # (auto) 0.3 10 ^3/uL (0-0.8); Eosinophils % (auto) 4.4 % (0.0-7.0); Hematocrit 40.9 % (41.0-53.0); Hemoglobin 14.2 g/dL (13.5-17.5); Lymphocytes # (auto) 0.7 10 ^3/uL (0.4-5.4); Lymphocytes % (auto) 11.4 % (10.0-50.0); Mean Corpuscular Hemoglobin 30.7 pg (28.0-32.0); Mean Corpuscular Hgb Conc. 34.9 g/dL (32.0-36.0); Mean Corpuscular Volume 87.9 fL (80.0-100.0); Monocytes # (auto) 0.6 10 ^3/uL (0-1.3); Monocytes % (auto) 9.2 % (0.0-12.0); Neutrophils # (auto) 4.8 10 ^3/uL (1.6-8.6); Neutrophils % (auto) 74.6 % (37.0-80.0); Red Blood Cells 4.65 10^6/uL (4.5-5.90); White Blood Cell 6.5 10^3/uL (4.4-10.8)
[2021-04-16] MEDS: metroNIDAZOLE 500 MG TAB PO SCH ×3 (06:00→21:22)
[2021-04-16 09:00] VITALS: BP 112/62
[2021-04-16] MEDS: LISINOPRIL 5 MG TAB PO SCH (09:06)
[2021-04-16] MEDS: levoFLOXacin 500 MG TAB PO SCH (09:07)
[2021-04-16 13:00] VITALS: BP 99/65
[2021-04-16] MEDS: TAMSULOSIN HYDROCHLORIDE 0.4 MG CAP PO SCH (16:54)
[2021-04-16] MEDS: MORPHINE SULFATE INJECTION 2 MG/ML SYRG IV PRN ×2 (16:55→21:23)
[2021-04-16 17:00] VITALS: BP 116/69
[2021-04-16] MEDS ORDERED: ENOXAPARIN SOD 40 MG/0.4 ML SYRINGE SC ONE (17:45)
[2021-04-16 22:00] VITALS: BP 97/55
[2021-04-17 05:00] VITALS: BP 103/57
[2021-04-17] MEDS: metroNIDAZOLE 500 MG TAB PO SCH ×3 (06:08→21:44)
[2021-04-17 08:59] VITALS: BP 96/53
[2021-04-17] MEDS: ENOXAPARIN SOD 40 MG/0.4 ML SYRINGE SC SCH (10:18)
[2021-04-17] MEDS: levoFLOXacin 500 MG TAB PO SCH (10:18)
[2021-04-17] MEDS: LISINOPRIL 5 MG TAB PO SCH (10:18)
[2021-04-17 13:00] VITALS: BP 118/62
[2021-04-17] MEDS: HYDROcodone-ACET 5/325MG TAB PO PRN (13:57)
[2021-04-17] MEDS: ONDANSETRON HCL 4 MG/2 ML VIAL IV PRN ×2 (13:58→21:43)
[2021-04-17 16:55] VITALS: BP 72/42
[2021-04-17] MEDS: MORPHINE SULFATE INJECTION 2 MG/ML SYRG IV PRN ×2 (17:18→21:43)
[2021-04-17] MEDS: TAMSULOSIN HYDROCHLORIDE 0.4 MG CAP PO SCH (18:00)
[2021-04-17 22:00] VITALS: BP 140/73
[2021-04-18 05:38] VITALS: BP 100/63
[2021-04-18] MEDS: metroNIDAZOLE 500 MG TAB PO SCH ×3 (06:23→21:41)
[2021-04-18 06:56] LABS: Basophils # (auto) 0 10 ^3/uL (0-0.2); Basophils % (auto) 0.3 % (0.0-2.0); Eosinophils # (auto) 0.3 10 ^3/uL (0-0.8); Eosinophils % (auto) 4.7 % (0.0-7.0); Hemoglobin 14.7 g/dL (13.5-17.5); Lymphocytes # (auto) 0.8 10 ^3/uL (0.4-5.4); Lymphocytes % (auto) 13.1 % (10.0-50.0); Mean Corpuscular Hemoglobin 31.2 pg (28.0-32.0); Mean Corpuscular Hgb Conc. 35.1 g/dL (32.0-36.0); Mean Corpuscular Volume 88.9 fL (80.0-100.0); Monocytes # (auto) 0.6 10 ^3/uL (0-1.3); Monocytes % (auto) 9.9 % (0.0-12.0); Neutrophils # (auto) 4.3 10 ^3/uL (1.6-8.6); Nucleated Red Blood Cells % 0.1 %; Red Blood Cells 4.72 10^6/uL (4.5-5.90); Red Cell Distribution Width 13.5 % (11.8-14.3)
[2021-04-18 07:00] LABS: INR 1.12 (0.9-1.15); Partial Thromboplastin Time 25.5 sec (23.6-33.0)
[2021-04-18 07:23] LABS: Potassium 3.5 mmol/L (3.5-5.1)
[2021-04-18 07:31] LABS: Albumin 2.4 g/dL (3.4-5.0); BUN/Creatinine Ratio 16.7; Bilirubin, Total 0.6 mg/dL (0.2-1.0); Calcium 8.5 mg/dL (8.5-10.1); Magnesium 2.5 mg/dL (1.6-2.6); Phosphorus 2.7 mg/dL (2.5-4.90)
[2021-04-18 09:00] VITALS: BP 106/66
[2021-04-18] MEDS: ENOXAPARIN SOD 40 MG/0.4 ML SYRINGE SC SCH (10:16)
[2021-04-18] MEDS: levoFLOXacin 500 MG TAB PO SCH (10:16)
[2021-04-18] MEDS: LISINOPRIL 5 MG TAB PO SCH (10:17)
[2021-04-18] MEDS: ONDANSETRON HCL 4 MG/2 ML VIAL IV PRN ×2 (11:36→18:50)
[2021-04-18] MEDS: MORPHINE SULFATE INJECTION 2 MG/ML SYRG IV PRN ×3 (11:36→22:01)
[2021-04-18 13:00] VITALS: BP 108/69
[2021-04-18 17:00] VITALS: BP 111/65
[2021-04-18] MEDS: TAMSULOSIN HYDROCHLORIDE 0.4 MG CAP PO SCH (17:44)
[2021-04-18 22:00] VITALS: BP 99/56
[2021-04-19 05:00] VITALS: BP 92/46
[2021-04-19] MEDS: metroNIDAZOLE 500 MG TAB PO SCH (05:23)
[2021-04-19 09:00] VITALS: BP 90/54
[2021-04-19] MEDS: LISINOPRIL 5 MG TAB PO SCH (09:15)
[2021-04-19] MEDS: levoFLOXacin 500 MG TAB PO SCH (09:15)
[2021-04-19] MEDS: ENOXAPARIN SOD 40 MG/0.4 ML SYRINGE SC SCH (09:15)
[2021-04-19] MEDS ORDERED: PANT40TA2 PO (10:32)
[2021-04-19] MEDS ORDERED: LEVO-28 PO (10:32)
[2021-04-19] MEDS ORDERED: TAM04C PO (11:13)
== END 2021-04-19 12:40 | disposition home health service (06) | DRG 409 ==
LOC: ER 08:06 → TELE 12:28 → TELE-WESTW 04-04 08:14 → WEST WING 04-14 09:52
PROVIDERS: ADMIT Nurse Practitioner Acute Care; ATTEND Internal Medicine
PROC: 0FJB0ZZ Inspection of Hepatobiliary Duct, Open Approach (ICD-10-PCS; 2021-04-07)
PROC: BF101ZZ Fluoroscopy of Bile Ducts using Low Osmolar Contrast (ICD-10-PCS; 2021-04-07)
PROC: 0F190Z3 Bypass Common Bile Duct to Duodenum, Open Approach (ICD-10-PCS; 2021-04-07)
PROC: 0FT40ZZ Resection of Gallbladder, Open Approach (ICD-10-PCS; principal; 2021-04-07 11:14)
PROC: 05HB33Z Insertion of Infusion Device into Right Basilic Vein, Percutaneous Approach (ICD-10-PCS; 2021-04-11)
PROC: B54MZZA Ultrasonography of Right Upper Extremity Veins, Guidance (ICD-10-PCS; 2021-04-11)
DX: K80.63 Calculus of gallbladder and bile duct with acute cholecystitis with obstruction (principal); I82.611 Acute embolism and thrombosis of superficial veins of right upper extremity; N39.0 Urinary tract infection, site not specified; N40.0 Benign prostatic hyperplasia without lower urinary tract symptoms; I10 Essential (primary) hypertension; K40.20 Bilateral inguinal hernia, without obstruction or gangrene, not specified as recurrent; K57.30 Diverticulosis of large intestine without perforation or abscess without bleeding; J45.909 Unspecified asthma, uncomplicated; Z20.822 Contact with and (suspected) exposure to COVID-19; Z82.49 Family history of ischemic heart disease and other diseases of the circulatory system
CPT/HCPCS: 36415; 71045; 74176; 74181; 74246; 74300; 76705; 80048; 80053; 80076; 81001; 82040; 82150; 82247; 82962; 83605; 83690; 83735; 84100; 84132; 84443; 84478; 84484; 85025; 85610; 85730; 86850; 86900; 86901; 87040; 87426; 93005; 93971; 96365; 96375; C9113; G0378; J0330; J0690; J0696; J1100; J1815; J2250; J2405; J2704; J3490; J7131

== ENCOUNTER 2021-05-10 11:10 | Emergency (ER) | payer OTHER ==
[~2021-05-10] VITALS: Ht 165.1 cm; Wt 72.6 kg
[~2021-05-10 11:10] MED LIST changes: -CIPR500T4 PO; +LEVO-28 PO; +PANT40TA2 PO; +TAM04C PO; +TERB250T86 PO
[2021-05-10 12:32] LABS: Basophils # (auto) 0 10 ^3/uL (0-0.2); Basophils % (auto) 0.2 % (0.0-2.0); Eosinophils # (auto) 0.1 10 ^3/uL (0-0.8); Eosinophils % (auto) 1.7 % (0.0-7.0); Hematocrit 44.4 % (41.0-53.0); Hemoglobin 15.4 g/dL (13.5-17.5); Lymphocytes % (auto) 11.1 % (10.0-50.0); Mean Corpuscular Hgb Conc. 34.6 g/dL (32.0-36.0); Mean Corpuscular Volume 89.6 fL (80.0-100.0); Monocytes # (auto) 0.7 10 ^3/uL (0-1.3); Monocytes % (auto) 8.5 % (0.0-12.0); Neutrophils # (auto) 6.8 10 ^3/uL (1.6-8.6); Neutrophils % (auto) 78.5 % (37.0-80.0); Red Blood Cells 4.95 10^6/uL (4.5-5.90); Red Cell Distribution Width 13.5 % (11.8-14.3); White Blood Cell 8.7 10^3/uL (4.4-10.8)
[2021-05-10] MEDS ORDERED: MORPHINE SULFATE 4 MG/ML SYR/VIAL IV ONE (13:00)
[2021-05-10] MEDS ORDERED: SODIUM CHLORIDE 0.9% 1,000 ML IV ONE (13:00)
[2021-05-10] MEDS ORDERED: ONDANSETRON HCL 4 MG/2 ML VIAL IV ONE (13:00)
[2021-05-10 13:09] LABS: Albumin 2.9 g/dL (3.4-5.0); Calcium 8.9 mg/dL (8.5-10.1); Potassium 4.1 mmol/L (3.5-5.1)
[2021-05-10 13:12] LABS: BUN/Creatinine Ratio 17.2; Bilirubin, Total 0.9 mg/dL (0.2-1.0)
[2021-05-10 13:17] LABS: Lipase 109 U/L (73-393); Magnesium 2.3 mg/dL (1.6-2.6)
[2021-05-10 14:30] LABS: INR 1.06 (0.9-1.15); Partial Thromboplastin Time 28.2 sec (23.6-33.0)
[2021-05-10 21:19] VITALS: BP 119/75
== END 2021-05-10 21:20 | disposition home or self-care (01) ==
LOC: ER 11:10
DX: R10.9 Unspecified abdominal pain (principal); Z90.49 Acquired absence of other specified parts of digestive tract; Z79.2 Long term (current) use of antibiotics; Z79.899 Other long term (current) drug therapy
CPT/HCPCS: 36415; 74176; 80053; 83605; 83690; 83735; 84484; 85025; 85610; 85730

== ENCOUNTER 2022-10-10 12:43 | Emergency (ER) | payer OTHER, MEDICAID ==
[2022-10-10 14:37] LABS: Urine Bacteria NONE SEEN /hpf (None Seen); Urine Blood 2+ /uL (Negative); Urine Mucus FEW (None Seen); Urine Specific Gravity 1.016 (1.001-1.035); Urine WBC 1 /hpf (0 - 3)
[2022-10-10 14:47] LABS: Albumin 3.8 g/dL (3.4-5.0); BUN/Creatinine Ratio 17.5; Calcium 8.9 mg/dL (8.5-10.1); Potassium 3.6 mmol/L (3.5-5.1)
[2022-10-10 14:49] LABS: Bilirubin, Total 1.1 mg/dL (0.2-1.0); Total Protein 7.7 g/dL (6.4-8.2)
[2022-10-10 15:16] LABS: Mean Corpuscular Volume 88.4 fL (80.0-100.0)
[2022-10-10 15:28] LABS: Basophils # (auto) 0 10 ^3/uL (0-0.2); Basophils % (auto) 0.1 % (0.0-2.0); Eosinophils # (auto) 0 10 ^3/uL (0-0.8); Hemoglobin 15.9 g/dL (13.5-17.5); Lymphocytes # (auto) 0.3 10 ^3/uL (0.4-5.4); Lymphocytes % (auto) 2.7 % (10.0-50.0); Mean Corpuscular Hemoglobin 29.9 pg (28.0-32.0); Mean Corpuscular Hgb Conc. 33.8 g/dL (32.0-36.0); Monocytes # (auto) 0.5 10 ^3/uL (0-1.3); Monocytes % (auto) 3.8 % (0.0-12.0); Neutrophils % (auto) 93.4 % (37.0-80.0); Nucleated Red Blood Cells % 0.1 %; Red Blood Cells 5.32 10^6/uL (4.5-5.90); Red Cell Distribution Width 13.6 % (11.8-14.3); White Blood Cell 12.9 10^3/uL (4.4-10.8)
[2022-10-10] MEDS ORDERED: CEPH-510 PO (15:59)
[2022-10-10 16:39] VITALS: BP 144/79
== END 2022-10-10 16:55 | disposition home or self-care (01) ==
LOC: ER 12:43
DX: K40.90 Unilateral inguinal hernia, without obstruction or gangrene, not specified as recurrent (principal); R33.9 Retention of urine, unspecified; Z90.49 Acquired absence of other specified parts of digestive tract; Z88.6 Allergy status to analgesic agent; Z88.1 Allergy status to other antibiotic agents
CPT/HCPCS: 36415; 74176; 80053; 81001; 85025; 87040; 87077

== ENCOUNTER 2022-10-19 13:40 | Emergency (ER) | payer OTHER, MEDICAID ==
[~2022-10-19] VITALS: Ht 165.1 cm; Wt 69.2 kg
[~2022-10-19 13:40] MED LIST changes: +CEPH-510 PO
[2022-10-19 15:22] VITALS: BP 138/85
[2022-10-19] MEDS ORDERED: CIPR-173 PO (16:13)
== END 2022-10-19 16:49 | disposition home or self-care (01) ==
LOC: ER 13:40
DX: N39.0 Urinary tract infection, site not specified (principal); Z90.49 Acquired absence of other specified parts of digestive tract; Z46.6 Encounter for fitting and adjustment of urinary device

== ENCOUNTER 2022-11-01 07:23 | Emergency (ER) | payer OTHER, MEDICAID ==
[~2022-11-01] VITALS: Ht 162.6 cm; Wt 71.5 kg
[~2022-11-01 07:23] MED LIST changes: +CIPR-173 PO
[2022-11-01 08:08] VITALS: BP 180/93
[2022-11-01] MEDS ORDERED: LACT10SO70 PO (09:40)
[2022-11-01] MEDS ORDERED: LACTULOSE 20Gm/30ML SOLN PO ONE (09:45)
== END 2022-11-01 09:47 | disposition home or self-care (01) ==
LOC: ER 07:23
DX: R33.9 Retention of urine, unspecified (principal); K59.00 Constipation, unspecified; Z46.6 Encounter for fitting and adjustment of urinary device
CPT/HCPCS: 51702

== ENCOUNTER 2024-02-16 07:59 | Emergency (ER) | payer OTHER, MEDICAID ==
[~2024-02-16] VITALS: Ht 160 cm; Wt 66.5 kg
[~2024-02-16 07:59] MED LIST changes: +LACT10SO70 PO; -LEVO-28 PO; +LEVO500T91 PO; -TAM04C PO; +TAMS-35 PO
[2024-02-16 09:00] VITALS: BP 160/69; TEMP 98
[2024-02-16 09:01] VITALS: PULSE 75; RESP 16; O2SAT 97
[2024-02-16] MEDS: KETOROLAC TROMETH 30 MG/ML 1ML VIAL IM ONE (09:17)
[2024-02-16] MEDS: cefTRIAXone SOD 1,000 MG VL IM ONE (09:17)
== END 2024-02-16 09:23 | disposition home or self-care (01) ==
LOC: ER 08:02
DX: K04.7 Periapical abscess without sinus (principal); Z90.49 Acquired absence of other specified parts of digestive tract; Z87.440 Personal history of urinary (tract) infections
CPT/HCPCS: 96372; 99284; J0696; J1885

== ENCOUNTER 2024-03-23 14:28 | Emergency (ER) | payer OTHER, MEDICAID ==
[~2024-03-23] VITALS: Ht 165.1 cm; Wt 66.4 kg
[2024-03-23 15:59] LABS: Urine Bacteria None Seen /hpf (None Seen)
[2024-03-23 16:07] LABS: Basophils # (auto) 0 10 ^3/uL (0-0.2); Basophils % (auto) 0.3 % (0.0-2.0); Eosinophils # (auto) 0.1 10 ^3/uL (0-0.8); Eosinophils % (auto) 1.1 % (0.0-7.0); Hematocrit 44.4 % (41.0-53.0); Hemoglobin 15.5 g/dL (13.5-17.5); Lymphocytes # (auto) 0.8 10 ^3/uL (0.4-5.4); Lymphocytes % (auto) 13.6 % (10.0-50.0); Mean Corpuscular Hemoglobin 31.2 pg (28.0-32.0); Mean Corpuscular Volume 89.2 fL (80.0-100.0); Monocytes # (auto) 0.5 10 ^3/uL (0-1.3); Monocytes % (auto) 7.9 % (0.0-12.0); Neutrophils # (auto) 4.4 10 ^3/uL (1.6-8.6); Neutrophils % (auto) 77.1 % (37.0-80.0); Nucleated Red Blood Cells % 0.6 %; Platelet Count (auto) 210 10^3/uL (140-450); Red Blood Cells 4.97 10^6/uL (4.5-5.90); Red Cell Distribution Width 13.8 % (11.8-14.3); White Blood Cell 5.7 10^3/uL (4.4-10.8)
[2024-03-23 16:09] LABS: Urine Blood TRACE /uL (Negative); Urine Clarity Clear (Clear); Urine Color Yellow (Yellow); Urine Mucus FEW (None Seen); Urine Protein, UAD TRACE (Negative); Urine Specific Gravity 1.033 (1.001-1.035); Urine Urobilinogen Normal (Negative); Urine WBC 1 /hpf (0 - 3); Urine pH 5.5 (5.0-9.0)
[2024-03-23 16:29] LABS: Alanine Aminotransferase 12 U/L (7-40); Alkaline Phosphatase 76 U/L (46-116); Anion Gap 7 (5-15); Aspartate Aminotransferase 11 U/L (13-40); BUN/Creatinine Ratio 15.3 (10.0-20.0); Blood Urea Nitrogen 15 mg/dL (9-23); Carbon Dioxide 26 mmol/L (20-30); Chloride 107 mmol/L (98-107); Glucose 118 mg/dL (74-106); Potassium 3.7 mmol/L (3.5-5.1); Sodium 140 mmol/L (136-145)
[2024-03-23 16:30] LABS: Total Protein 6.6 g/dL (5.7-8.2)
[2024-03-23 16:35] LABS: Lactic Acid w/Reflex 2.2 mmol/L (0.4-2.0)
[2024-03-23 17:29] VITALS: BP 114/64; PULSE 68; RESP 19; TEMP 97.8; O2SAT 98
[2024-03-23] MEDS ORDERED: POLYPOW59 PO (22:53)
== END 2024-03-24 00:43 | disposition home or self-care (01) ==
LOC: ER 14:28
DX: K40.90 Unilateral inguinal hernia, without obstruction or gangrene, not specified as recurrent (principal); K59.00 Constipation, unspecified; Z79.899 Other long term (current) drug therapy; Z90.49 Acquired absence of other specified parts of digestive tract
CPT/HCPCS: 36415; 74177; 76870; 80053; 81001; 83605; 84484; 85025

== ENCOUNTER 2025-01-22 14:27 | Inpatient (IN) | payer OTHER, MEDICAID ==
[~2025-01-22] VITALS: Ht 157.5 cm; Wt 70.9 kg
[~2025-01-22 14:27] MED LIST changes: +POLYPOW59 PO
--- NOTE | 2025-01-22 14:36 | ED.PDOC ---
GI ASSESSMENT HPI Comments GABBY: HPI: Poor Historian. [age] Year old brought in by ambulance from home for evaluation of two week history of generalized abdominal pain worse in the right lower quadrant. Pain got worse today significantly constant no alleviating or precipitating factors. Past patient has a history of a inguinal hernia that is on repaired. Patient was hypertensive per EMS at home secondary to pain. Pain is constant nonradiating. Past Medical History: Prostate problem, inguinal hernia, Past Surgical History: Cholecystectomy REVIEW OF SYSTEMS: CONSTITUTIONAL: Denies acute: fever, diaphoresis, chills, generalized weakness. HEAD: Denies acute: headache, photophobia Eyes: Denies acute: Double vision, vision loss, eye pain, eye discharge. EARS: Denies acute: tinnitus, hearing loss, ear discharge, ear pain, THROAT: Denies acute: sore throat, swelling, difficulty swallowing , pain with swallowing, change in voice. NECK: Denies acute: neck pain, neck swelling, stiff neck. HEART: Denies acute : chest pain, palpitations, LUNGS: Denies acute: SOB, wheezing, cough, hemoptysis ABDOMEN: Denies acute: a , Nausea, Vomiting, diarrhea, melena , hematemesis, hematochezia SKIN: Denies acute: rash, redness, lesions, itchiness. EXTREMITIES: Denies acute: calf pain, numbness, tingling, weakness, denies pain in extremity. Denies acute: Low back pain. Neuro: Denies acute: focal neurological deficit, motor or sensory focal neurological deficit, tremors, seizure like activity, confusion, dizziness, change in mental status, loss of bowel or bladder function, cauda equina like symptoms. : Denies acute: dysuria, hematuria, flank pain, increase in urinary frequency. PSYCH: Denies acute: hallucination, suicidal ideation, homicidal ideation. PHYSICAL EXAM: General: -----moderate to severe---acute distress, awake and alert. Head: normocephalic, atraumatic. Neck: supple, trachea is midline, no swelling. Throat: Normal phonation. Eyes:, no erythema, no purulent discharge, no proptosis, no icterus. Heart: regular rate, regular rhythm, no significant murmur appreciated. Lungs: no apparent respiratory distress, Able to speak in full sentences. No wheezing, no rhonchi, no crackles. No stridors Clear to auscultation bilaterally. Abdomen: Generalized diffuse tender to palpation, non distended, soft, no guarding, no rebound, + bowel sounds. Noted significant right inguinal swelling and tenderness to palpation. History of inguinal hernia on repaired. Neuro: Awake, Alert, oriented to name, self, situation, follows commands GCS=15. Speech is normal. Skin: no petechia, no purpura, no cyanosis, non-pale, not jaundice. Lower extremities: --no - Pitting edema no deformity, no focal swelling, no calf TTP. Makes eye contact. moves all four extremities. Face: no apparent facial droop. ED COURSE: DISCLAIMER: This medical document was created using an electronic medical record system with voice recognition software and computerized dictation system. Although this document has been carefully reviewed, there might still be some phonetic and typographical errors. Occasional wrong-word or "sound-alike" substitutions may have occurred due to the inherent limitations of voice recognition software. These areas are purely typographical due to imperfections of the software programs and do not reflect any compromise in the patient's medical care. Please read the chart carefully and recognize, using context, where these substitutions have occurred. Time Seen by MD: 14:28 Primary Care Provider: MARY KATE Allergies: Coded Allergies: NO KNOWN ALLERGIES (Unverified , 03/10/18) Home Meds Active Scripts Tamsulosin Hcl (Flomax) 0.4 Mg Cap, 1 CAP PO DAILY, #90 CAP 0 Refills Prov:ANICETO LUJAN MD 04/19/21 Reported Medications Terbinafine HCl (Terbinafine Hydrochloride) 250 Mg Tab, 1 TAB PO DAILYPRN 04/04/21 Information Source: Patient Past Medical History PAST MEDICAL HISTORY: UTI'S Surgical History: Cholecystectomy Family History Family History: Reviewed,noncontributory to illness Social History Smoker: Non-Smoker Alcohol: Denies ETOH Use Drugs: Denies Drug Use Lives In: Home Was a procedure done? Was a procedure done?: No GI differential Dx Differential Diagnosis: Other (DDX include but not limited to diverticulitis, colitis, gastroenteritis, acute abdomen, SBO, enteritis, constipation, volvulus, appendicitis, Gallbladder disease, choledocolithiasis, ascending cholangitis, pancreatitis, intraAbdominal mass/neoplasm, hepatitis, UTI, pylonephritis, kidney stone, aneurysm, dissection, Inflammatory bowel disease, gastroparesis, ischemic bowel.) X-Ray, Labs, Meds, VS Vital Signs Date Time Temp Pulse Resp B/P (MAP) Pulse Ox O2 Delivery O2 Flow Rate FiO2 01/22/25 20:47 80 15 145/97 (113) 95 01/22/25 20:43 154/88 01/22/25 19:30 85 20 96 Room Air* 0 21 01/22/25 19:30 98.9 85 20 154/88 (110) 96 98.9 01/22/25 17:00 88 01/22/25 15:44 88 18 100 Room Air* 0 21 01/22/25 15:44 98.1 88 18 178/84 (115) 100 98.1 01/22/25 15:40 178/84 01/22/25 14:38 98.2 85 20 208/95 (132) 99 98.2 Lab Test 01/22/25 18:14 01/22/25 15:06 01/22/25 15:02 01/22/25 00:00 Range/Units Lactic Acid Level 0.9 2.2 *H 0.4-2.0 mmol/L White Blood Count 5.1 4.4-10.8 10^3/uL Red Blood Count 5.51 4.5-5.90 10^6/uL Hemoglobin 17.1 13.5-17.5 g/dL Hematocrit 48.1 41.0-53.0 % Mean Corpuscular Volume 87.2 80.0-100.0 fL Mean Corpuscular Hemoglobin 31.0 28.0-32.0 pg Mean Corpuscular Hemoglobin Concent 35.5 32.0-36.0 g/dL Red Cell Distribution Width 13.3 11.8-14.3 % Platelet Count 161 140-450 10^3/uL Mean Platelet Volume 9.0 6.9-10.8 fL Neutrophils (%) (Auto) 87.6 H 37.0-80.0 % Lymphocytes (%) (Auto) 7.4 L 10.0-50.0 % Monocytes (%) (Auto) 4.2 0.0-12.0 % Eosinophils (%) (Auto) 0.3 0.0-7.0 % Basophils (%) (Auto) 0.5 0.0-2.0 % Neutrophils # (Auto) 4.5 1.6-8.6 10 ^3/uL Lymphocytes # (Auto) 0.4 0.4-5.4 10 ^3/uL Monocytes # (Auto) 0.2 0-1.3 10 ^3/uL Eosinophils # (Auto) 0 0-0.8 10 ^3/uL Basophils # (Auto) 0 0-0.2 10 ^3/uL Nucleated Red Blood Cells 0.2 % Sodium Level 142 136-145 mmol/L Potassium Level 3.5 3.5-5.1 mmol/L Chloride Level 106 98-107 mmol/L Carbon Dioxide Level 26 20-31 mmol/L Anion Gap 10 5-15 Blood Urea Nitrogen 14 9-23 mg/dL Creatinine 0.89 0.700-1.30 mg/dL Glomerular Filtration Rate Calc 87 >90 mL/min BUN/Creatinine Ratio 15.7 10.0-20.0 Serum Glucose 160 H 74-106 mg/dL Calcium Level 9.0 8.7-10.4 mg/dL Total Bilirubin 1.1 H 0.2-1.0 mg/dL Aspartate Amino Transferase (AST) 20 <34 U/L Alanine Aminotransferase (ALT) 17 7-40 U/L Alkaline Phosphatase 88 46-116 U/L Total Protein 7.3 5.7-8.2 g/dL Albumin 4.4 3.2-4.8 g/dL Lipase 30 12-53 U/L Urine Color Light-yellow Yellow Urine Clarity Clear Clear Urine pH 8.0 5.0-9.0 Urine Specific Hay 1.014 1.001-1.035 Urine Protein Negative Negative Urine Ketones 2+ H Negative Urine Blood Negative Negative /uL Urine Nitrite Negative Negative Urine Bilirubin Negative Negative Urine Urobilinogen Normal Negative mg/dL Urine Leukocyte Esterase Negative Negative /uL Urine RBC 2 0 - 3 /hpf Urine Microscopic WBC 1 0-3 /HPF Urine Squamous Epithelial Cells Few <5 /hpf Urine Bacteria None seen None Seen /hpf Urine Glucose Trace Normal mg/dL [facility] [id number] [facility] [address] Ph: [phone] DIAGNOSTIC IMAGING Diagnostic Imaging Report : [id number] Signed PATIENT: DENICE CUEVAS MACCT: [id number] UNIT: [id number] : 1945 LOC: ER ROOM / BED: / AGE / SEX: 79 / M ADM STATUS: REG ER SERVICE [id number] ORDERING PHYSICIAN: BRIANNA CAMARENA DO PROCEDURE(s): ABPL - CT AB PEL WO CON-NO ORAL OR IV REASON: abd pain, inguinal hernia ORDER NUMBER(s): [id number], ACCESSION NUMBER(s): [id number] Exam: CT CT AB PEL WO CON-NO ORAL OR IV History: abd pain, inguinal hernia Comparison Study: CT CT AB PEL WO CON-NO ORAL OR IV on DOS: 10/10/22, CT ABD PELVIS WO CONTRAST on DOS: 05/10/21, GIWAG on DOS: 04/12/21 TECHNIQUE: Multidetector CT of the abdomen and pelvis without IV contrast. Axial, coronal and sagittal multiplanar reformats were obtained from the axial data set by the technologist. Radiation Dose Information: CT Dose: CTDI volume is 6.06 mGy. Dose-length product is 383.34 mGy*cm FINDINGS: Bibasilar atelectasis. Partially visualized heart is unremarkable. Artifact from hyperdensity within the upper and mid abdominal bowel loops limits evaluation of the adjacent structures. Pneumobilia. Status post cholecystectomy. Liver is normal in size. Spleen, pancreas and adrenal glands unremarkable. Kidneys, ureters and urinary bladder are unremarkable. Prostate is enlarged measuring 4.6 x 5.4 x 5.1 cm. Small hiatal hernia. Mild gastric wall thickening. Appendix is unremarkable. Limited evaluation of the large bowel due to artifact from hyperdense material within the colon. There is [id number] amount of fecal material within the colon. Descending colon sigmoid diverticulosis with segment of the sigmoid extending into the large right inguinal hernia. Large right inguinal hernia containing sigmoid , segment or fluid-filled nondistended small bowel and small amount of free fluid. The remainder of the small bowel loops unremarkable. The hernia neck measures up to 4.2 cm. Moderate sized fat containing left inguinal hernia. No evidence of intraperitoneal free air. No evidence of aortic aneurysm. Mild atherosclerotic calcification of the aorta and bilateral iliacs. No significant lymphadenopathy. Minimal body wall edema. Sclerotic focus of the left T11 vertebral body which may represent a bone island/blastic lesion. Mild anterior wedge deformity of L1 which appears chronic with Multilevel endplate Schmorl nodes of the lumbar spine. IMPRESSION: Artifact from hyperdensity within the bowel loops of the upper midabdomen limits evaluation of the adjacent structures. Large right inguinal hernia containing a segment of the sigmoid, fluid segmental fluid-filled nondistended small-bowel. Early bowel obstruction can not be excluded. Moderate size fat containing left inguinal hernia. Pneumobilia. Small hiatal hernia. Mild gastric wall thickening which may be due to inadequa te distention with gastritis not excluded. Descending colon and Sigmoid diverticulosis with Limited evaluation for diverticulitis of the herniated segment given fluid within the hernia. Enlarged prostate. Recommend correlation with PSA. ATED BY: MILENA MEDINA DO DICTATED DATE/TIME: 01/22/251530 SIGNED BY: MILENA MEDINA DO SIGNED DATE/TIME: 01/22/251530 CC: Time of 1ST Reevaluation: 20:56 (We were just informed that Dr. Modi used to be on-call today for General surgery but he switch with Dr. fallon. We paged him at this time.) Reevaluation 1ST: N/A Time of 2ND Reevaluation: 21:49 (The case was discussed with the general surgery on-call team (HPI, physical exam, labs and diagnostic tests that were available at the time of disposition, ED course, treatment plan) on the phone. They requested NG tube and said they will follow patient in consult tomorrow. SUDARSHAN Chao for Dr. Fallon. He said he will contact his attending.The case was discussed with the admitting team (HPI, physical exam, labs and diagnostic tests that were available at the time of disposition, ED course, treatment plan) on the phone. They agreed to admit the patient to their service and assume care of this patient from this point forward. MARLINE goddard.) Reevaluation 2ND: Improved Patient Education/Counseling: Diagnosis, Treatment Family Education/Counseling: Other Comments Patient presented with the above HPI.----abdominal pain--workup was initiated. patient was found with the above mentioned diagnosis. the following medications were ordered: please refer to order lists of meds and tests obtained by myself Dr. Camarena. Patient ED course and VS have been stabilized. Patient has been reassessed in the ED and remained in a stable condition. Pertinent incidental findings were discussed with the patient and/or family. Patient/family voices understanding and is agreeable with plan. Patient has been observed in the ED adequate length of time to insure improvement/stability. Escalation of care considered: Consideration of escalation to observation or admission General surgery was consulted. Patient was ADMITTED to the medicine team for further evaluation and treatment of their presentation. All the reports of any imaging studies that were ordered by myself were reviewed by myself. Departure 1 Departure Time of Disposition: 21:49 Impression: Primary Impression: Acute abdominal pain Additional Impressions: Inguinal hernia SBO (small bowel obstruction) Disposition: ADMITTED INPATIENT Admit to: [facility] Condition: Guarded Discharged With: Self Critical Care Note Critical Care Time?: Yes (55 min-critical care time only) I personally scribed for BRIANNA CAMARENA DO ([email or web address]) on 01/22/25 at 14:36. Electronically submitted by Pamela Joseph (J [email or web address]). I personally scribed for BRIANNA CAMARENA DO ([email or web address]) on 01/22/25 at 21:15. Electronically submitted by Pamela Joseph (J [email or web address]). BRIANNA CAMARENA DO Jan 22, 2025 14:36
--- NOTE | 2025-01-22 15:34 | DVH ---
Exam: CT CT AB PEL WO CON-NO ORAL OR IV History: abd pain, inguinal hernia Comparison Study: CT CT AB PEL WO CON-NO ORAL OR IV on DOS: 10/10/22, CT ABD PELVIS WO CONTRAST on DOS : 05/10/21, GIWAG on DOS: 04/12/21 TECHNIQUE: Multidetector CT of the abdomen and pelvis without IV contrast. Axial, coronal and sagitta l multiplanar reformats were obtained from the axial data set by the technologist. Radiation Dose Information: CT Dose: CTDI volume is 6.06 mGy. Dose-length product is 383.34 mGy*cm FINDINGS: Bibasilar atelectasis. Partially visualized heart is unremarkable. Artifact from hyperdensity within the upper and mid abdominal bowel loops limits evaluation of the a djacent structures. Pneumobilia. Status post cholecystectomy. Liver is normal in size. Spleen, pancreas and adrenal gland s unremarkable. Kidneys, ureters and urinary bladder are unremarkable. Prostate is enlarged measuring 4.6 x 5.4 x 5.1 cm. Small hiatal hernia. Mild gastric wall thickening. Appendix is unremarkable. Limited evaluation of the large bowel due to artifact from hyperdense material within the colon. There is [id number] amount of fecal material within the colon. Descending colon sigmoid diverticulosis with segment of th e sigmoid extending into the large right inguinal hernia. Large right inguinal hernia containing sigmoid , segment or fluid-filled nondistended small bowel and small amount of free fluid. The remainder of the small bowel loops unremarkable. The hernia neck alvaro sures up to 4.2 cm. Moderate sized fat containing left inguinal hernia. No evidence of intraperitoneal free air. No evidence of aortic aneurysm. Mild atherosclerotic calcification of the aorta and bilateral iliacs . No significant lymphadenopathy. Minimal body wall edema. Sclerotic focus of the left T11 vertebral body which may represent a bone is land/blastic lesion. Mild anterior wedge deformity of L1 which appears chronic with Multilevel endpla te Schmorl nodes of the lumbar spine. IMPRESSION: Artifact from hyperdensity within the bowel loops of the upper midabdomen limits evaluation of the ad jacent structures. Large right inguinal hernia containing a segment of the sigmoid, fluid segmental fluid-filled nondist ended small-bowel. Early bowel obstruction can not be excluded. Moderate size fat containing left inguinal hernia. Pneumobilia. Small hiatal hernia. Mild gastric wall thickening which may be due to inadequate distention with gas tritis not excluded. Descending colon and Sigmoid diverticulosis with Limited evaluation for diverticulitis of the herniat ed segment given fluid within the hernia. Enlarged prostate. Recommend correlation with PSA.
[2025-01-22] MEDS: SODIUM CHLORIDE 0.9% 1,000 ML IV ONE (15:35)
[2025-01-22] MEDS: fentaNYL CITRATE 100 MCG/2 ML VL IV ONE ×2 (15:40→20:43)
[2025-01-22 15:44] VITALS: PULSE 88; RESP 18; O2SAT 100
[2025-01-22 16:00] LABS: Urine Protein, UAD Negative (Negative)
[2025-01-22 16:01] LABS: Alanine Aminotransferase 17 U/L (7-40); Albumin 4.4 g/dL (3.2-4.8); Alkaline Phosphatase 88 U/L (46-116); Anion Gap 10 (5-15); BUN/Creatinine Ratio 15.7 (10.0-20.0); Blood Urea Nitrogen 14 mg/dL (9-23); Calcium 9.0 mg/dL (8.7-10.4); Carbon Dioxide 26 mmol/L (20-31); Chloride 106 mmol/L (98-107); Lipase 30 U/L (12-53); Sodium 142 mmol/L (136-145); Total Protein 7.3 g/dL (5.7-8.2)
[2025-01-22 16:02] LABS: Bilirubin, Total 1.1 mg/dL (0.2-1.0)
[2025-01-22 16:05] LABS: Glucose 160 mg/dL (74-106); Potassium 3.5 mmol/L (3.5-5.1)
[2025-01-22 16:06] LABS: Lactic Acid w/Reflex 2.2 mmol/L (0.4-2.0)
[2025-01-22 16:36] LABS: Hematocrit 48.1 % (41.0-53.0); Hemoglobin 17.1 g/dL (13.5-17.5); Mean Corpuscular Hemoglobin 31.0 pg (28.0-32.0); Mean Corpuscular Volume 87.2 fL (80.0-100.0); Nucleated Red Blood Cells % 0.2 %
[2025-01-22] MEDS: PIPERACILLIN-TAZOB 3.375GM 100 ML IV ONE (16:37)
[2025-01-22 19:30] VITALS: PULSE 85; RESP 20; O2SAT 96
[2025-01-22] MEDS ORDERED: MORPHINE SULFATE INJ 2 MG/ml SYRG IV PRN (21:45)
[2025-01-22] MEDS ORDERED: PIPERACILLIN-TAZOB 3.375GM 100 ML IV SCH (22:00)
[2025-01-22] MEDS: D5W/SOD CHL 0.45% 1,000 ML IV SCH (23:01)
--- NOTE | 2025-01-22 23:51 | DVH ---
CHEST RADIOGRAPH Indication: NGT placement Technique: Single frontal view of the chest was obtained COMPARISON: CXR1 on DOS: 04/09/21, CHEST XRAY 1 VIEW on DOS: 04/09/21, CXRP on DOS: 04/03/21 FINDINGS: Lines and Tubes: Enteric catheter courses below the level of the diaphragm and terminates just beyond the level of the gastroesophageal junction. Lungs: Clear Pleura: No effusion. No pneumothorax. Cardiomediastinal contours: Unremarkable Bones: Unremarkable IMPRESSION: 1. No acute disease. 2. Enteric catheter as above.
[2025-01-23] VITALS (9 sets, daily range): BP systolic 123–154; BP diastolic 76–92; PULSE 64–95; RESP 16–19; TEMP 97.4–98.7; O2SAT 94–97
--- NOTE | 2025-01-23 00:19 | DVHHP2 ---
Admitting Diagnosis: Small Bowel Obstruction, Right Inguinal Hernia History of Present Illness History Source: Patient Exam Limitations: Language barrier (irish speaking) HPI Mr. Flako Hines is a 79 yo male with known history of BPH, Inguinal hernias left and right, Cholecystectomy who presents with a chief complaint of generalized abdominal pain, nausea, right inguinal hernia pain x 2 weeks. Patient reports he has been constipated x 3 days. Patient reports his right inguinal hernia was enlarged yesterday morning with "unbearable pain" . Patient denies fevers, chills, melena, hematochezia, nausea, vomiting. Patient CT abdomen and pelvis resulted Artifact from hyperdensity within the bowel loops of the upper midabdomen limits evaluation of the adjacent structures. Large right inguinal hernia containing a segment of the sigmoid, fluid segmental fluid- filled nondistended small-bowel. Early bowel obstruction can not be excluded. Moderate size fat containing left inguinal hernia. Pneumobilia. Small hiatal hernia. Mild gastric wall thickening which may be due to inadequate distention with gastritis not excluded. Descending colon and Sigmoid diverticulosis with Limited evaluation for diverticulitis of the herniated segment given fluid within the hernia. Enlarged prostate. Recommend correlation with PSA. Surgeon was consulted by ED Dr. Gutierrez , who spoke with Dr. Diane Romo, who recommended NGT placement will consult and see patient in am. Patient admitted for further evaluation and treatment. Home Meds Active Scripts Tamsulosin Hcl (Flomax) 0.4 Mg Cap, 1 CAP PO DAILY, #90 CAP 0 Refills Prov:ANICETO LUJAN MD 04/19/21 Reported Medications Terbinafine HCl (Terbinafine Hydrochloride) 250 Mg Tab, 1 TAB PO DAILYPRN 04/04/21 Past Medical History Cardiac: No pertinent Hx Pulmonary: No pertinent Hx Central Nervous System: No pertinent Hx GI: No pertinent Hx Hemotology/Oncology: No pertinent Hx Hepatobiliary: No pertinent Hx Psychiatric: No pertinent Hx Musculoskeletal: No pertinent Hx Rheumotologic: No pertinent Hx Infectious Disease: No peritnent Hx ENT: No pertinent Hx Renal/: Benign prostatic enlarg. Endocrine: No pertinent Hx Dermatology: No pertinent Hx Others right and left inguinal hernias Past Surgical History: Cholecystectomy Patient Family History: Asthma G8 FATHER FH: [place] (myocardial infarction) G8 MOTHER Hypertension G8 MOTHER Smoker: No Hx (Negative) Alocohol: None Drugs: None Lives with: With family Domestic Violence: Neg Review of Systems Constitutional: No symptom reported Ears, Nose, & Throat: No symptom reported Eyes: No symptom reported Pulmonary/Respiratory: No symptom reported Cardiovascular: No symptom reported Gastrointestinal: Nausea, Abdominal Pain, Other (right groin pain) Genitourinary: No symptom reported Musculoskeletal: No symptom reported Skin: No symptom reported Psychiatric: No symptom reported Endocrine: No symptom reported Hemotologic/Lymphatic: No symptom reported H&P Exam Vital Signs Vital Signs Date Time Temp Pulse Resp B/P (MAP) Pulse Ox O2 Delivery O2 Flow Rate FiO2 01/22/25 20:47 80 15 145/97 (113) 95 01/22/25 19:30 98.9 98.9 01/22/25 15:44 Room Air* 0 21 General Appeara: Well developed, Well nourished, Normal Appearance Head Exam: Normal inspection Neck Exam: Normal inspection, Non-tender, Normal alignment Eye Exam: bilateral eye Normal inspection, bilateral eye PERRL, bilateral eye EOMI Ear Exam: bilateral ear Auricle normal Nasal Exam: Normal inspection Mouth: Normal Inspection Pulmonary/Respiratory: Normal inspection, Normal breath sounds, Chest non- tender, Lungs clear Cardiovascular/Chest: Normal inspection, Regular rate, Normal Rhythm Peripheral Pulses: 2+ dorsalis pedis (R), 2+ dorsalis pedis (L), 2+ Radial (R), 2+ Radial (L) Abdominal Exam: Soft, No tenderness, Other (hypoactive bowel sounds) Abdominal Pain Onset Location: Generalized abdomen Rectal Exam: Deferred Male Genital Exam: Inguinal tenderness (right inguinal hernia ), Testicular tenderness - 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 Exam: Normal hearing, Normal speech, PERRL Neuro/Mental St: Alert, Oriented Appearance: Appropriate appearance, Appropriate insight Eye contact/ Speech: Cooperative, Good eye contact, Normal speech Thoughts/Psych: Normal thought pattern Skin Exam: Normal inspection, Normal color, Warm/dry Labs/Xrays Labs Test 01/22/25 18:14 01/22/25 15:06 01/22/25 00:00 Range/Units Lactic Acid Level 0.9 0.4-2.0 mmol/L White Blood Count 5.1 4.4-10.8 10^3/uL Red Blood Count 5.51 4.5-5.90 10^6/uL Hemoglobin 17.1 13.5-17.5 g/dL Hematocrit 48.1 41.0-53.0 % Mean Corpuscular Volume 87.2 80.0-100.0 fL Mean Corpuscular Hemoglobin 31.0 28.0-32.0 pg Mean Corpuscular Hemoglobin Concent 35.5 32.0-36.0 g/dL Red Cell Distribution Width 13.3 11.8-14.3 % Platelet Count 161 140-450 10^3/uL Mean Platelet Volume 9.0 6.9-10.8 fL Neutrophils (%) (Auto) 87.6 H 37.0-80.0 % Lymphocytes (%) (Auto) 7.4 L 10.0-50.0 % Monocytes (%) (Auto) 4.2 0.0-12.0 % Eosinophils (%) (Auto) 0.3 0.0-7.0 % Basophils (%) (Auto) 0.5 0.0-2.0 % Neutrophils # (Auto) 4.5 1.6-8.6 10 ^3/uL Lymphocytes # (Auto) 0.4 0.4-5.4 10 ^3/uL Monocytes # (Auto) 0.2 0-1.3 10 ^3/uL Eosinophils # (Auto) 0 0-0.8 10 ^3/uL Basophils # (Auto) 0 0-0.2 10 ^3/uL Nucleated Red Blood Cells 0.2 % Sodium Level 142 136-145 mmol/L Potassium Level 3.5 3.5-5.1 mmol/L Chloride Level 106 98-107 mmol/L Carbon Dioxide Level 26 20-31 mmol/L Anion Gap 10 5-15 Blood Urea Nitrogen 14 9-23 mg/dL Creatinine 0.89 0.700-1.30 mg/dL Glomerular Filtration Rate Calc 87 >90 mL/min BUN/Creatinine Ratio 15.7 10.0-20.0 Serum Glucose 160 H 74-106 mg/dL Calcium Level 9.0 8.7-10.4 mg/dL Total Bilirubin 1.1 H 0.2-1.0 mg/dL Aspartate Amino Transferase (AST) 20 <34 U/L Alanine Aminotransferase (ALT) 17 7-40 U/L Alkaline Phosphatase 88 46-116 U/L Total Protein 7.3 5.7-8.2 g/dL Albumin 4.4 3.2-4.8 g/dL Lipase 30 12-53 U/L Urine Color Light-yellow Yellow Urine Clarity Clear Clear Urine pH 8.0 5.0-9.0 Urine Specific [place] 1.014 1.001-1.035 Urine Protein Negative Negative Urine Ketones 2+ H Negative Urine Blood Negative Negative /uL Urine Nitrite Negative Negative Urine Bilirubin Negative Negative Urine Urobilinogen Normal Negative mg/dL Urine Leukocyte Esterase Negative Negative /uL Urine RBC 2 0 - 3 /hpf Urine Microscopic WBC 1 0-3 /HPF Urine Squamous Epithelial Cells Few <5 /hpf Urine Bacteria None seen None Seen /hpf Urine Glucose Trace Normal mg/dL Assessment/Plan Problem List: (1) Acute abdominal pain (2) SBO (small bowel obstruction) (3) Inguinal hernia Plan This is a 79 yo male with known history of BPH, right and left inguinal hernia, cholecystectomy who presents to the hospital with abdominal pain, right groin pain, nausea. Surgeon was consulted by ED Physician Dr. Gutierrez , who spoke with Dr. Diane Romo, who recommended NGT placement will consult and see patient in am. Patient admitted for further evaluation and treatment. Patient found to have 1. Small Bowel Obstruction 2. Right inguinal Hernia 3. hx of BPH 4. hx of Cholecystectomy Plan Admit Telemetry General Surgeon consultation appreciated NGT to LIS NPO IV fluids IV antibiotic GI ppx Protonix Follow Testicular Ultrasound results Discussed all above with patient in [place] who verbalized agreement and understanding of care plan. All questions were answered. Discussed assessment and care plan with supervising MD Dr. Clemons. Plan discussed with: Patient, Other Code Visit Code Visit Total Time (mins): 45 Additional Comments Additional Comments Additional Comments Patient's chart is reviewed and discussed with the nurse practitioner. Patient is seen evaluated and admitted by nurse practitioner simulation tech. I agree with her evaluation, documentation, assessment and care plan as outlined. Patient seen and evaluated by me today. Patient is scheduled for surgery tomorrow. Patient is at average risk for perioperative postoperative complications given his age. Patient does not have any cardiac or pulmonary issues. Patient is stable to undergo inguinal hernia surgery. Discussed with the patient and nurse. LALO PAEZ Jan 23, 2025 00:19 LICO JONES MD Jan 23, 2025 12:56
[2025-01-23] MEDS: PIPERACILLIN-TAZOB 3.375GM 100 ML IV SCH (00:26)
--- NOTE | 2025-01-23 05:39 | DVH ---
ULTRASOUND OF SCROTUM AND CONTENTS. INDICATION: testicular pain COMPARISON: US TESTICULAR ULTRASOUND on DOS: 03/23/24 TECHNIQUE: Multiple real-time grayscale sonographic and color and duplex Doppler images of the scrotu m and its contents were obtained. FINDINGS: The right testicle measures 3.1 x 2.2 x 2.8 cm. The left testicle measures 3.4 x 2.0 x 2.8 cm. Both testicles demonstrate homogeneous echotexture without evidence of focal lesions. The right epididymis measures 3.7 cm. The left epididymis measures 1.4 cm. Multiple right epididymal head cysts are present. Largest measures 2.5 cm. Subsequent color and duplex Doppler interrogation of the testes demonstrated symmetric normal vascula r flow to both testicles. No focal areas of hyperemia were seen. Large right inguinal bowel containing hernia is present. Moderate left fat and fluid containing ingui nal hernia. Small bilateral hydrocele. IMPRESSION: No evidence of torsion, epididymitis, and/or orchitis. Large right inguinal bowel containing hernia is present. Moderate left fat and fluid containing ingui nal hernia. Small bilateral hydrocele.
--- NOTE | 2025-01-23 05:50 | DVH ---
CHEST RADIOGRAPH Indication: NGT PLACEMENT Technique: Single frontal view of the chest was obtained COMPARISON: XY CHEST PORTABLE on DOS: 01/22/25, CXR1 on DOS: 04/09/21, CHEST XRAY 1 VIEW on DOS: 1, CXRP on DOS: 04/03/21 FINDINGS: Lines and Tubes: Enteric catheter courses below the level of the diaphragm and terminates just right of midline within the upper abdomen. Lungs: Clear Pleura: No effusion. No pneumothorax. Cardiomediastinal contours: Unremarkable. Atherosclerotic vascular calcifications. Bones: Unremarkable IMPRESSION: 1. No acute disease. 2. Enteric catheter.
[2025-01-23 06:26] LABS: Hematocrit 42.5 % (41.0-53.0); Hemoglobin 14.7 g/dL (13.5-17.5); Mean Corpuscular Hemoglobin 30.2 pg (28.0-32.0); Mean Corpuscular Volume 87.5 fL (80.0-100.0); Nucleated Red Blood Cells % 0.0 %
[2025-01-23 06:36] LABS: Chloride 106 mmol/L (98-107); Sodium 142 mmol/L (136-145)
[2025-01-23 06:37] LABS: Anion Gap 9 (5-15); Calcium 8.8 mg/dL (8.7-10.4); Carbon Dioxide 27 mmol/L (20-31)
[2025-01-23 06:42] LABS: BUN/Creatinine Ratio 11.8 (10.0-20.0); Blood Urea Nitrogen 10 mg/dL (9-23)
[2025-01-23 06:46] LABS: INR 1.03 (0.9-1.15); Prothrombin Time 10.9 sec (9.3-11.8)
[2025-01-23 06:53] LABS: Glucose 122 mg/dL (74-106); Potassium 3.2 mmol/L (3.5-5.1)
[2025-01-23] MEDS: PANTOPRAZOLE 40 MG/10 ML VIAL INJ IV SCH (10:18)
[2025-01-23] MEDS: POTASSIUM CHLORIDE 40 MEQ, LIDOCAINE 1% (LOCAL ANESTH.) 4 ML in SODIUM CHL 0.9% 250 ML IV ONE (15:05)
[2025-01-23] MEDS: TAMSULOSIN HYDROCHLORIDE 0.4 MG CAP PO SCH (17:38)
[2025-01-23] MEDS: MAGNESIUM SULFATE 1GM/100ML 100 ML IV SCH (18:38)
[2025-01-24] VITALS (8 sets, daily range): BP systolic 100–131; BP diastolic 69–80; PULSE 59–100; RESP 14–18; TEMP 97.4–97.8; O2SAT 93–100
[2025-01-24 06:46] LABS: Anion Gap 9 (5-15); Carbon Dioxide 25 mmol/L (20-31); Potassium 3.6 mmol/L (3.5-5.1); Sodium 141 mmol/L (136-145)
[2025-01-24 06:47] LABS: Calcium 9.0 mg/dL (8.7-10.4); Chloride 107 mmol/L (98-107)
[2025-01-24 06:52] LABS: BUN/Creatinine Ratio 6.8 (10.0-20.0); Glucose 101 mg/dL (74-106)
[2025-01-24 06:54] LABS: Blood Urea Nitrogen 6 mg/dL (9-23); Magnesium 2.7 mg/dL (1.6-2.6)
[2025-01-24] MEDS ORDERED: PROPOFOL 10 MG/ML 20 ML IV ONE (09:52)
[2025-01-24] MEDS ORDERED: GLYCOPYRROLATE 0.2 MG/ML 1ML VIAL ONE (09:52)
[2025-01-24] MEDS ORDERED: KETOROLAC TROMETH 30 MG/ML 1ML VIAL ONE (09:52)
[2025-01-24] MEDS ORDERED: LIDOCAINE 2% (LOCAL ANESTH.) PF 5ml SDV ONE (09:52)
[2025-01-24] MEDS ORDERED: ONDANSETRON HCL 4 MG/2 ML VIAL ONE (09:52)
[2025-01-24] MEDS ORDERED: fentaNYL CITRATE 100 MCG/2 ML VL ONE (09:53)
[2025-01-24] MEDS ORDERED: KETAMINE 50mg/ML 1ml syringe ONE (09:53)
--- NOTE | 2025-01-24 10:33 | DVHINCON2 ---
Date of service: Jan 24, 2025 History of Present Illness Home Meds Active Scripts Tamsulosin Hcl (Flomax) 0.4 Mg Cap, 1 CAP PO DAILY, #90 CAP 0 Refills Prov:ANICETO LUJAN MD 04/19/21 Reported Medications Terbinafine HCl (Terbinafine Hydrochloride) 250 Mg Tab, 1 TAB PO DAILYPRN 04/04/21 Past Medical History Others right and left inguinal hernias Patient Family History: Asthma G8 FATHER FH: [place] (myocardial infarction) G8 MOTHER Hypertension G8 MOTHER H&P Exam Vital Signs Vital Signs Date Time Temp Pulse Resp B/P (MAP) Pulse Ox O2 Delivery O2 Flow Rate FiO2 01/24/25 09:00 97.7 63 14 126/73 (90) 96 97.7 01/23/25 20:00 Room Air* 0 21 Labs/Xrays Labs Test 01/24/25 04:55 01/23/25 05:50 01/22/25 15:06 01/22/25 00:00 Range/Units Sodium Level 141 136-145 mmol/L Potassium Level 3.6 3.5-5.1 mmol/L Chloride Level 107 98-107 mmol/L Carbon Dioxide Level 25 20-31 mmol/L Anion Gap 9 5-15 Blood Urea Nitrogen 6 L 9-23 mg/dL Creatinine 0.88 0.700-1.30 mg/dL Glomerular Filtration Rate Calc 87 >90 mL/min BUN/Creatinine Ratio 6.8 L 10.0-20.0 Serum Glucose 101 74-106 mg/dL Calcium Level 9.0 8.7-10.4 mg/dL Magnesium Level 2.7 H 1.6-2.6 mg/dL White Blood Count 5.0 4.4-10.8 10^3/uL Red Blood Count 4.86 4.5-5.90 10^6/uL Hemoglobin 14.7 13.5-17.5 g/dL Hematocrit 42.5 # 41.0-53.0 % Mean Corpuscular Volume 87.5 80.0-100.0 fL Mean Corpuscular Hemoglobin 30.2 28.0-32.0 pg Mean Corpuscular Hemoglobin Concent 34.5 32.0-36.0 g/dL Red Cell Distribution Width 13.1 11.8-14.3 % Platelet Count 163 140-450 10^3/uL Mean Platelet Volume 8.5 6.9-10.8 fL Neutrophils (%) (Auto) 70.3 37.0-80.0 % Lymphocytes (%) (Auto) 19.5 10.0-50.0 % Monocytes (%) (Auto) 9.2 0.0-12.0 % Eosinophils (%) (Auto) 0.8 0.0-7.0 % Basophils (%) (Auto) 0.2 0.0-2.0 % Neutrophils # (Auto) 3.5 1.6-8.6 10 ^3/uL Lymphocytes # (Auto) 1.0 0.4-5.4 10 ^3/uL Monocytes # (Auto) 0.5 0-1.3 10 ^3/uL Eosinophils # (Auto) 0 0-0.8 10 ^3/uL Basophils # (Auto) 0 0-0.2 10 ^3/uL Nucleated Red Blood Cells 0.0 % Prothrombin Time 10.9 9.3-11.8 sec Prothrombin Time INR 1.03 0.9-1.15 Lactic Acid Level 1.2 0.4-2.0 mmol/L Total Bilirubin 1.1 H 0.2-1.0 mg/dL Aspartate Amino Transferase (AST) 20 <34 U/L Alanine Aminotransferase (ALT) 17 7-40 U/L Alkaline Phosphatase 88 46-116 U/L Total Protein 7.3 5.7-8.2 g/dL Albumin 4.4 3.2-4.8 g/dL Lipase 30 12-53 U/L Urine Color Light-yellow Yellow Urine Clarity Clear Clear Urine pH 8.0 5.0-9.0 Urine Specific [place] 1.014 1.001-1.035 Urine Protein Negative Negative Urine Ketones 2+ H Negative Urine Blood Negative Negative /uL Urine Nitrite Negative Negative Urine Bilirubin Negative Negative Urine Urobilinogen Normal Negative mg/dL Urine Leukocyte Esterase Negative Negative /uL Urine RBC 2 0 - 3 /hpf Urine Microscopic WBC 1 0-3 /HPF Urine Squamous Epithelial Cells Few <5 /hpf Urine Bacteria None seen None Seen /hpf Urine Glucose Trace Normal mg/dL Assessment/Plan Admitting Diagnosis: 79 year old male with incarcerated right inguinal hernia extending into his scrotum, operation,risks and complications including damage or infarction of the right testicle were all explained to him in detail Plan discussed with: Patient Visit Coding Surgery Date of Service if different f: Jan 24, 2025 Billing Provider: JUHI MAHMOOD MD Surgery Visit Codes: 66667 - INP CONSULT <110 MIN JUHI MAHMOOD MD Jan 24, 2025 10:33
[2025-01-24] MEDS: ACETAMINOPHEN IV 1000 MG/100ML (10MG/ML) IV ONE (10:45)
[2025-01-24] MEDS: CELECOXIB 100 MG CAP PO ONE (10:45)
[2025-01-24] MEDS: GABAPENTIN 300 MG CAP PO ONE (10:45)
[2025-01-24] MEDS: CELECOXIB 100 MG CAP ONE (10:47)
[2025-01-24] MEDS: GABAPENTIN 300 MG CAP ONE (10:47)
[2025-01-24] MEDS: ACETAMINOPHEN IV 100 ML IV ONE (10:47)
[2025-01-24] MEDS ORDERED: ceFAZolin 1GM VL ONE (11:01)
[2025-01-24] MEDS ORDERED: SODIUM CHLORIDE LOCK 10 ML ONE (11:02)
[2025-01-24] MEDS: BUPIVACAINE HCL 0.25% P/F 10 ML VIAL ONE (11:23)
[2025-01-24] MEDS: LIDOCAINE W/ EPINEPHRINE 1% 20ML VIAL ONE (11:23)
[2025-01-24] MEDS ORDERED: hydrALAZINE HCL 20 MG/ML VL IV PRN (12:30)
[2025-01-24] MEDS ORDERED: NALOXONE HCL 0.4 MG/ML VIAL IV PRN (12:30)
[2025-01-24] MEDS ORDERED: ONDANSETRON HCL 4 MG/2 ML VIAL IV PRN (12:30)
[2025-01-24] MEDS ORDERED: HYDROmorphone HCL 2 MG/ML VL/or syr IV PRN (12:30)
[2025-01-24] MEDS ORDERED: FLUMAZENIL 0.1 MG/ML INJ 10ML MDV IV PRN (12:30)
[2025-01-24] MEDS ORDERED: fentaNYL CITRATE 100 MCG/2 ML VL IV PRN (12:30)
--- NOTE | 2025-01-24 13:21 | DVHOP ---
DATE OF SURGERY: 01/24/2025 PREOPERATIVE DIAGNOSIS: Incarcerated right inguinal hernia. POSTOPERATIVE DIAGNOSIS: Incarcerated right inguinal hernia. SURGEON: Khoa Contreras MD TRACTOR DRILL OPERATOR: Rogerio Chao. ANESTHESIA: General. ANESTHESIOLOGIST: Nurse jd edwards developer. PROCEDURE: Repair of incarcerated right inguinal hernia. DESCRIPTION OF PROCEDURE: Under adequate anesthesia with the patient's skin prepped and draped and infiltrated with 0.25% Marcaine and 0.5% Xylocaine, an incision was made over a visible palpable bulge in the patient's groin. The incision was deepened with electrocautery. Following division of the Eren's fascia and encountering the fibers of the external oblique aponeurosis, the ilioinguinal nerve was reflected laterally and protected and the hernia was encircled with a [place] drain. The hernia sac was opened and grasped with Francisca clamps and digitally and visually explored. It contained an incarcerated loop of viable sigmoid colon, which was extremely difficult to reduce. The reduction necessitated division of the inguinal ligament, which was then repaired after the reduction of the bowel. The repair consisted of interrupted nonabsorbable sutures. Following reduction of the bowel into the abdominal cavity, the sac was from exuberant tissue, which in several instances appeared to be the urinary bladder. This was and reduced back into the pelvis. The sac was twisted on itself, doubly ligated at the level of the internal inguinal ring and amputated. The stump was allowed to retract beneath the fibers of the internal oblique aponeurosis. Subsequently, the bladder and the surrounding tissues were returned into the pelvis and the inguinal floor was repaired using nonabsorbable sutures through conjoint tendon, Akin's ligament, and the reflecting portion of Poupart's ligament. The repair was snug enough to allow the probing of the internal ring with a forceps and accommodated the cord structures without constriction. The testicle was returned into its scrotal compartment and the tissues then approximated with Monocryl sutures. The ilioinguinal nerve was returned into its normal anatomical position. Subcutaneous tissues and skin approximated with Monocryl sutures, Dermabond glue, and Steri-Strips. The patient remained stable throughout the procedure, left the operating room following an accurate needle and sponge count. The patient's was thoroughly informed at [phone]. MD YEVGENIY Lewis/YOLANDA TID: [id number] RECEIPT: [id number]
--- NOTE | 2025-01-24 13:52 | MEDREC ---
[facility] Intervention Section I [facility] Intervention: Duplication of therapy (DUPLICATION ZOSYN / CEFAZOLIN - PLEASE CONSIDER D/C ONE OF THEM ) SUNNY GREENBERG PHARMACIST Jan 24, 2025 13:52
[2025-01-24] MEDS: ceFAZolin 2 GM/D5W50ml 50 ML IV SCH (14:00)
--- NOTE | 2025-01-24 14:27 | DVHPN2 ---
Progress Note - Dictate Date Seen: Jan 24, 2025 Medical Necessity Reason Pt with a Central, PICC or Fol: No Subjective Underwent incarcerated right inguinal hernia surgical repair. Clinically stable. vital signs Vital Sign Date Time Temp Pulse Resp B/P (MAP) Pulse Ox O2 Delivery O2 Flow Rate FiO2 01/24/25 09:00 97.7 63 14 126/73 (90) 96 97.7 01/23/25 20:00 Room Air* 0 21 Total Intake and Output 01/23/25 01/23/25 01/24/25 15:00 23:00 07:00 Intake Total 0 ml 0 ml 300 ml Output Total 100 ml 700 ml 1000 ml Balance -100 ml -700 ml -700 ml medications Current Medications Medications Dose Ordered Sig/Tg Route Start Time Stop Time Status Last Admin Dose Admin Ondansetron HCl 4 mg Q6HPRN PRN IV 01/22/25 21:45 Tamsulosin HCl 0.4 mg QPM PO 01/23/25 18:00 01/23/25 17:38 0.4 MG Potassium Chloride/Dextrose/ Sod Cl 1,000 ml @ 100 mls/hr Q10H IV 01/24/25 12:15 Hydromorphone HCl 1 mg Q4HPRN PRN IV 01/24/25 12:15 Acetaminophen/ Codeine Phosphate 1 tab Q6HP PRN PO 01/24/25 12:15 Cefazolin Sodium/ Dextrose 50 ml @ 50 mls/hr Q8HR IV 01/24/25 14:00 objective Alert awake oriented to place and person. Family at bedside. HEENT neck supple no JVD. Heart regular rate and rhythm S1 and S2. Lungs fair air movement without rales wheezes. Abdomen soft positive bowel sounds. Extremities no edema. laboratory and microbiology Laboratory Tests 01/24/25 04:55 01/23/25 05:50 Test 01/24/25 04:55 Range/Units Serum Glucose 101 74-106 mg/dL Assessment/Plan Patient postop clinically stable. Started on clear liquid diet. Continue current pain medications. Encouraged activity and ambulation. Otherwise further clinical management per clinical course and postop recovery. Discussed with the patient regarding care plan at bedside. Problems(with codes): (1) Incarcerated inguinal hernia, unilateral (2) S/P repair of inguinal hernia (3) SBO (small bowel obstruction) (4) Inguinal hernia Plan discussed with: Patient LICO JONES MD Jan 24, 2025 14:27
[2025-01-24] MEDS: ACETAMINOPHEN/CODEINE#3 (300/30mg) TAB PO PRN (14:49)
[2025-01-24] MEDS: D5W/SOD CHL 0.45%/KCL 20MEQ 1,000 ML IV SCH (14:50)
[2025-01-24] MEDS: HYDROmorphone HCL 2 MG/ML VL/or syr IV PRN (18:48)
[2025-01-24] MEDS: ONDANSETRON HCL 4 MG/2 ML VIAL IV PRN (20:15)
[2025-01-25] VITALS (12 sets, daily range): BP systolic 120–150; BP diastolic 72–83; PULSE 74–95; RESP 16–20; TEMP 97.5–99.4; O2SAT 93–100
[2025-01-25 06:13] LABS: Hematocrit 43.0 % (41.0-53.0); Hemoglobin 15.2 g/dL (13.5-17.5); Mean Corpuscular Hemoglobin 30.8 pg (28.0-32.0); Mean Corpuscular Volume 87.1 fL (80.0-100.0); Nucleated Red Blood Cells % 0.0 %
[2025-01-25 06:15] LABS: Anion Gap 10 (5-15); Carbon Dioxide 25 mmol/L (20-31); Chloride 104 mmol/L (98-107); Potassium 4.1 mmol/L (3.5-5.1); Sodium 139 mmol/L (136-145)
[2025-01-25 06:21] LABS: BUN/Creatinine Ratio 8.1 (10.0-20.0); Blood Urea Nitrogen 15 mg/dL (9-23)
[2025-01-25 06:31] LABS: Calcium 8.6 mg/dL (8.7-10.4); Glucose 136 mg/dL (74-106)
--- NOTE | 2025-01-25 13:31 | DVHPN2 ---
Progress Note - Dictate Date Seen: Jan 25, 2025 Medical Necessity Reason Pt with a Central, PICC or Fol: No Subjective Still complains of mild discomfort in the right inguinal area postop surgical site. Passing flatus. Tolerating liquid diet. vital signs Vital Sign Date Time Temp Pulse Resp B/P (MAP) Pulse Ox O2 Delivery O2 Flow Rate FiO2 01/25/25 09:00 97.6 83 20 150/83 (105) 97 97.6 01/25/25 08:00 Room Air* 0 21 Total Intake and Output 01/24/25 01/24/25 01/25/25 14:59 22:59 06:59 Intake Total 640 ml 650 ml Balance 640 ml 650 ml medications Current Medications Medications Dose Ordered Sig/Tg Route Start Time Stop Time Status Last Admin Dose Admin Ondansetron HCl 4 mg Q6HPRN PRN IV 01/22/25 21:45 01/24/25 20:15 4 MG Tamsulosin HCl 0.4 mg QPM PO 01/23/25 18:00 01/24/25 18:21 0.4 MG Acetaminophen/ Codeine Phosphate 1 tab Q6HP PRN PO 01/24/25 12:15 01/25/25 09:50 1 TAB Cefazolin Sodium/ Dextrose 50 ml @ 50 mls/hr Q8HR IV 01/24/25 14:00 01/25/25 05:36 50 MLS/HR Morphine Sulfate 2 mg Q3HPRN PRN IV 01/25/25 13:30 UNV Acetylcysteine 100 mg Q6HR NEB 01/25/25 18:00 UNV objective Alert awake oriented to place and person. Family at bedside. HEENT neck supple no JVD. Heart regular rate and rhythm S1 and S2. Lungs fair air movement without rales wheezes. Abdomen soft positive bowel sounds. Extremities no edema. laboratory and microbiology Laboratory Tests 01/25/25 05:25 Test 01/25/25 05:25 Range/Units Serum Glucose 136 H 74-106 mg/dL Assessment/Plan Advance his diet to soft today. Encouraged activity ambulation. Continue current pain management. Monitor him overnight. If he remains stable consider discharge home tomorrow. Discussed with the patient along with the nurse at bedside regarding care plan. Problems(with codes): (1) SBO (small bowel obstruction) (2) Incarcerated inguinal hernia, unilateral (3) Acute abdominal pain Plan discussed with: Patient LICO JONES MD Jan 25, 2025 13:31
--- NOTE | 2025-01-25 14:02 | DVHPN2 ---
Progress Note Date Seen: Jan 25, 2025 Medical Necessity Reason Pt with a Central, PICC or Fol: No Objective vital signs Vital Sign Date Time Temp Pulse Resp B/P (MAP) Pulse Ox O2 Delivery O2 Flow Rate FiO2 01/25/25 13:00 98.1 89 20 131/74 (93) 98 98.1 01/25/25 08:00 Room Air* 0 21 Total Intake and Output 01/24/25 01/24/25 01/25/25 15:00 23:00 07:00 Intake Total 640 ml 650 ml Balance 640 ml 650 ml medications Current Medications Medications Dose Ordered Sig/Tg Route Start Time Stop Time Status Last Admin Dose Admin Ondansetron HCl 4 mg Q6HPRN PRN IV 01/22/25 21:45 01/24/25 20:15 4 MG Tamsulosin HCl 0.4 mg QPM PO 01/23/25 18:00 01/24/25 18:21 0.4 MG Acetaminophen/ Codeine Phosphate 1 tab Q6HP PRN PO 01/24/25 12:15 01/25/25 09:50 1 TAB Cefazolin Sodium/ Dextrose 50 ml @ 50 mls/hr Q8HR IV 01/24/25 14:00 01/25/25 05:36 50 MLS/HR Morphine Sulfate 2 mg Q3HPRN PRN IV 01/25/25 13:30 UNV Acetylcysteine 100 mg Q6HR NEB 01/25/25 18:00 UNV Albuterol 2.5 mg Q6HR NEB 01/25/25 18:00 UNV laboratory and microbiology Laboratory Tests 01/25/25 05:25 Test 01/25/25 05:25 Range/Units Serum Glucose 136 H 74-106 mg/dL Problem List/Assessment/Plan Problem List/Assessment/Plan 01/25/25 FEELS MUCH BETTER, PASSING FLATUS, VOIDING, WOUND CLEAN AND WELL APPROXIMATED, CLEARED FOR DISCHARGE, Plan discussed with: Patient JUHI MAHMOOD MD Jan 25, 2025 14:02
[2025-01-25] MEDS: ACETYLCYSTEINE 10 %(100MG/ML) SOL 4ML NEB SCH (18:30)
[2025-01-25] MEDS: ALBUTEROL SULF 2.5 MG/0.5ML(0.5%) NEB SOLN NEB SCH (18:30)
[2025-01-26] VITALS (17 sets, daily range): BP systolic 107–160; BP diastolic 62–86; PULSE 87–106; RESP 16–20; TEMP 98.3–99; O2SAT 88–99
[2025-01-26] MEDS: PANTOPRAZOLE 40 MG/10 ML VIAL INJ IV SCH (01:24)
[2025-01-26] MEDS: MORPHINE SULFATE INJ 2 MG/ml SYRG IV PRN (01:29)
--- NOTE | 2025-01-26 14:39 | DVHPN2 ---
Subjective Date Seen: Jan 26, 2025 Post op day Post op day: 2 Patient reports: Other (abdominal pain) General: Normal HNT: Normal Cardiovascular: Normal Respiratory: Normal Gastrointestinal: Abdominal Pain Genitourinary: Normal Musculoskeletal: Normal Neurological: Normal Objective Vitals Vital Sign Date Time Temp Pulse Resp B/P (MAP) Pulse Ox O2 Delivery O2 Flow Rate FiO2 01/26/25 13:00 98.4 106 18 129/71 (90) 97 98.4 01/26/25 11:15 Room Air 0.0 01/26/25 11:15 21 Total Intake and Output 01/25/25 01/25/25 01/26/25 15:00 23:00 07:00 Intake Total 850 ml 200 ml Output Total 125 ml Balance 725 ml 200 ml Medications Current Medications Medications Dose Ordered Sig/Tg Route Start Time Stop Time Status Last Admin Dose Admin Ondansetron HCl 4 mg Q6HPRN PRN IV 01/22/25 21:45 01/26/25 14:20 4 MG Tamsulosin HCl 0.4 mg QPM PO 01/23/25 18:00 01/25/25 18:03 0.4 MG Acetaminophen/ Codeine Phosphate 1 tab Q6HP PRN PO 01/24/25 12:15 01/25/25 22:29 1 TAB Cefazolin Sodium/ Dextrose 50 ml @ 50 mls/hr Q8HR IV 01/24/25 14:00 01/26/25 14:20 50 MLS/HR Morphine Sulfate 2 mg Q3HPRN PRN IV 01/25/25 13:30 01/26/25 10:56 2 MG Acetylcysteine 100 mg Q6HR NEB 01/25/25 18:00 01/26/25 11:15 100 MG Albuterol 2.5 mg Q6HR NEB 01/25/25 18:00 01/26/25 11:15 2.5 MG Pantoprazole Sodium 40 mg DAILY IV 01/26/25 01:15 01/26/25 10:46 40 MG General: Normal, Well developed Head/Eyes: Normal ENT: Normal Neck: Normal Lungs: Normal Cardiovascular: Normal, Regular rate and rhythm Abdomen quadrants: RUQ Tenderness; LUQ Tenderness; LLQ Tenderness; RLQ Tenderness Extremities: Normal Skin: Normal, Normal inspection, Warm Labs and Microbiology Laboratory Tests 6/30/25 05:25 Test 01/25/25 05:25 Range/Units Serum Glucose 136 H 74-106 mg/dL Ass/Plan Labs and/or images reviewed: Labs reviewed by me Problem List 01/25/25 FEELS MUCH BETTER, PASSING FLATUS, VOIDING, WOUND CLEAN AND WELL APPROXIMATED, CLEARED FOR DISCHARGE, Assessment/Plan s/p Repair of incarcerated right inguinal hernia POD#2 patient complaint of abdominal pain denies nausea or vomiting passing gas, no BM in several days per patient Plan: Small bowel series with Gastrografin Prognosis: Good Plan discussed with patient, Dr. Contreras Visit Coding Surgery Date of Service if different f: Jan 26, 2025 Billing Provider: JUHI CONTRERAS MD Surgery Visit Codes: 41098 - INP CONSULT <80 MIN JAY MONTANEZ SENIOR UX DEVELOPER Jan 26, 2025 14:39
[2025-01-26] MEDS ORDERED: GASTROGRAFIN 120 ML SOL ONE (14:45)
[2025-01-26] MEDS: D5W/SOD CHL 0.45%/KCL 20MEQ 1,000 ML IV SCH (14:45)
--- NOTE | 2025-01-26 15:59 | DVHPN2 ---
Progress Note - Dictate Date Seen: Jan 26, 2025 Medical Necessity Reason Pt with a Central, PICC or Fol: No Subjective Complains of right inguinal pain with cough. Patient did not tolerate soft diet and had an episode of nausea and vomiting today per nurse. Therefore he is made NPO and small-bowel follow-through studies ordered by general surgeon. vital signs Vital Sign Date Time Temp Pulse Resp B/P (MAP) Pulse Ox O2 Delivery O2 Flow Rate FiO2 01/26/25 13:00 98.4 106 18 129/71 (90) 97 98.4 01/26/25 11:15 Room Air 0.0 01/26/25 11:15 21 Total Intake and Output 01/25/25 01/25/25 01/26/25 15:00 23:00 07:00 Intake Total 850 ml 200 ml Output Total 125 ml Balance 725 ml 200 ml medications Current Medications Medications Dose Ordered Sig/Tg Route Start Time Stop Time Status Last Admin Dose Admin Ondansetron HCl 4 mg Q6HPRN PRN IV 01/22/25 21:45 01/26/25 14:20 4 MG Tamsulosin HCl 0.4 mg QPM PO 01/23/25 18:00 01/25/25 18:03 0.4 MG Acetaminophen/ Codeine Phosphate 1 tab Q6HP PRN PO 01/24/25 12:15 01/25/25 22:29 1 TAB Cefazolin Sodium/ Dextrose 50 ml @ 50 mls/hr Q8HR IV 01/24/25 14:00 01/26/25 14:20 50 MLS/HR Morphine Sulfate 2 mg Q3HPRN PRN IV 01/25/25 13:30 01/26/25 10:56 2 MG Acetylcysteine 100 mg Q6HR NEB 01/25/25 18:00 01/26/25 11:15 100 MG Albuterol 2.5 mg Q6HR NEB 01/25/25 18:00 01/26/25 11:15 2.5 MG Pantoprazole Sodium 40 mg DAILY IV 01/26/25 01:15 01/26/25 10:46 40 MG Potassium Chloride/Dextrose/ Sod Cl 1,000 ml @ 100 mls/hr Q10H IV 01/26/25 14:45 Guaifenesin/ Codeine Phosphate 10 ml Q6HPRN PRN PO 01/26/25 15:15 objective Alert awake oriented to place and person. HEENT neck supple no JVD. Heart regular rate and rhythm S1 and S2. Lungs fair air movement without rales wheezes. Abdomen soft positive bowel sounds. Extremities no edema. laboratory and microbiology Laboratory Tests 01/25/25 05:25 Test 01/25/25 05:25 Range/Units Serum Glucose 136 H 74-106 mg/dL Assessment/Plan Patient is ambulating. I will add cough medication today. Keep him NPO and proceed with a small-bowel follow-through study. Monitor him overnight. IV fluids. Further clinical management per clinical course and pending evaluations and studies. Discussed with the nurse. Problems(with codes): (1) Incarcerated inguinal hernia, unilateral (2) Acute abdominal pain (3) SBO (small bowel obstruction) (4) S/P repair of inguinal hernia Dietary Evaluation Review Comments: 1) Ensure Enlive 240ml BID if PO intake <50% 2) Consider stool softener daily 3) Monitor wt trend, PO intake, lab values Expected Outcomes/Goals: GI symptom improve intkae to meet > 75% estimated needs FU 3-5 days Plan discussed with: Other LICO JONES MD Jan 26, 2025 15:59
--- NOTE | 2025-01-26 23:42 | DVH ---
Procedure: XY SMALL BOWEL SERIES-W GASTROGRA Reason for study/Clinical History: r/o obstruction Comparison Study: CT abdomen and pelvis from 01/22/2025 Technique: Single contrast small bowel series performed. FINDINGS/IMPRESSION: Initial database report writer view of the abdomen and pelvis appears demonstrates gas throughout nondilated small and large bowel. Surgical clips project over the right upper abdomen. Lung bases are clear. Osseous str uctures are grossly intact with bony demineralization. 125 mL Gastrografin was administered orally. The contrast opacifies the stomach, duodenum and scatte red central small bowel loops. The contrast is identified in the large bowel at 4 hours going against small-bowel obstruction.
[2025-01-27] VITALS (17 sets, daily range): BP systolic 95–144; BP diastolic 53–86; PULSE 68–108; RESP 16–18; TEMP 98.1–98.8; O2SAT 92–100
--- NOTE | 2025-01-27 12:48 | DVHPN2 ---
Subjective Date Seen: Jan 27, 2025 Post op day Post op day: 3 Patient reports: Other (abdominal pain) General: Normal HNT: Normal Cardiovascular: Normal Respiratory: Normal Gastrointestinal: Abdominal Pain Genitourinary: Normal Musculoskeletal: Normal Neurological: Normal Objective Vitals Vital Sign Date Time Temp Pulse Resp B/P (MAP) Pulse Ox O2 Delivery O2 Flow Rate FiO2 01/27/25 11:58 92 18 100 01/27/25 11:50 Room Air 0.0 01/27/25 11:50 21 01/27/25 05:00 98.2 122/65 (84) 98.2 Total Intake and Output 01/26/25 01/26/25 01/27/25 15:00 23:00 07:00 Intake Total 50 ml 52 ml 0 ml Output Total 120 ml 100 ml Balance 50 ml -68 ml -100 ml Medications Current Medications Medications Dose Ordered Sig/Tg Route Start Time Stop Time Status Last Admin Dose Admin Ondansetron HCl 4 mg Q6HPRN PRN IV 01/22/25 21:45 01/27/25 12:06 4 MG Tamsulosin HCl 0.4 mg QPM PO 01/23/25 18:00 01/25/25 18:03 0.4 MG Acetaminophen/ Codeine Phosphate 1 tab Q6HP PRN PO 01/24/25 12:15 01/25/25 22:29 1 TAB Cefazolin Sodium/ Dextrose 50 ml @ 50 mls/hr Q8HR IV 01/24/25 14:00 01/27/25 05:41 50 MLS/HR Morphine Sulfate 2 mg Q3HPRN PRN IV 01/25/25 13:30 01/26/25 16:36 2 MG Acetylcysteine 100 mg Q6HR NEB 01/25/25 18:00 01/27/25 11:44 100 MG Albuterol 2.5 mg Q6HR NEB 01/25/25 18:00 01/27/25 11:44 2.5 MG Pantoprazole Sodium 40 mg DAILY IV 01/26/25 01:15 01/27/25 09:30 40 MG Potassium Chloride/Dextrose/ Sod Cl 1,000 ml @ 100 mls/hr Q10H IV 01/26/25 14:45 01/26/25 19:53 100 MLS/HR Guaifenesin/ Codeine Phosphate 10 ml Q6HPRN PRN PO 01/26/25 15:15 General: Normal, Well developed Head/Eyes: Normal ENT: Normal Neck: Normal Lungs: Normal Cardiovascular: Normal, Regular rate and rhythm Abdominal: Normal, Soft, Normal inspection, Non tender, No distension Extremities: Normal Skin: Normal, Normal inspection, Warm Labs and Microbiology Laboratory Tests 01/25/25 05:25 Test 01/25/25 05:25 Range/Units Serum Glucose 136 H 74-106 mg/dL Ass/Plan Labs and/or images reviewed: Labs reviewed by me Problem List 01/25/25 FEELS MUCH BETTER, PASSING FLATUS, VOIDING, WOUND CLEAN AND WELL APPROXIMATED, CLEARED FOR DISCHARGE, Assessment/Plan s/p Repair of incarcerated right inguinal hernia POD#2 patient complaint of abdominal pain denies nausea or vomiting passing gas, no BM in several days per patient Plan: Small bowel series with Gastrografin s/p Repair of incarcerated right inguinal hernia POD#3 no complaint of abdominal pain, passing gas, several BM Small bowel series with Gastrografin reviewed no obstruction Plan: ok to discharge per surgery point of view DC narcotics patient to ambulate follow up in surgery clinic in 2 weeks Prognosis: Good Plan discussed with patient, Dr. Contreras Visit Coding Surgery Date of Service if different f: Jan 27, 2025 Billing Provider: JUHI CONTRERAS MD Surgery Visit Codes: [id number] INP/OBS CARE(HIGH) JAY MONTANEZ NP Jan 27, 2025 12:48
--- NOTE | 2025-01-27 14:09 | DVHPN2 ---
Progress Note - Dictate Date Seen: Jan 27, 2025 Medical Necessity Reason Pt with a Central, PICC or Fol: No Subjective Had bowel movements. Small-bowel follow-through study no obstruction. No nausea. vital signs Vital Sign Date Time Temp Pulse Resp B/P (MAP) Pulse Ox O2 Delivery O2 Flow Rate FiO2 01/27/25 13:00 98.8 98 18 129/86 (100) 96 98.8 01/27/25 11:50 Room Air 0.0 01/27/25 11:50 21 Total Intake and Output 01/26/25 01/26/25 01/27/25 15:00 23:00 07:00 Intake Total 50 ml 52 ml 0 ml Output Total 120 ml 100 ml Balance 50 ml -68 ml -100 ml medications Current Medications Medications Dose Ordered Sig/Tg Route Start Time Stop Time Status Last Admin Dose Admin Ondansetron HCl 4 mg Q6HPRN PRN IV 01/22/25 21:45 01/27/25 12:06 4 MG Tamsulosin HCl 0.4 mg QPM PO 01/23/25 18:00 01/25/25 18:03 0.4 MG Acetaminophen/ Codeine Phosphate 1 tab Q6HP PRN PO 01/24/25 12:15 01/25/25 22:29 1 TAB Cefazolin Sodium/ Dextrose 50 ml @ 50 mls/hr Q8HR IV 01/24/25 14:00 01/27/25 13:58 50 MLS/HR Morphine Sulfate 2 mg Q3HPRN PRN IV 01/25/25 13:30 01/26/25 16:36 2 MG Acetylcysteine 100 mg Q6HR NEB 01/25/25 18:00 01/27/25 11:44 100 MG Albuterol 2.5 mg Q6HR NEB 01/25/25 18:00 01/27/25 11:44 2.5 MG Pantoprazole Sodium 40 mg DAILY IV 01/26/25 01:15 01/27/25 09:30 40 MG Potassium Chloride/Dextrose/ Sod Cl 1,000 ml @ 100 mls/hr Q10H IV 01/26/25 14:45 01/26/25 19:53 100 MLS/HR Guaifenesin/ Codeine Phosphate 10 ml Q6HPRN PRN PO 01/26/25 15:15 objective Alert awake oriented to place and person. HEENT neck supple no JVD. Heart regular rate and rhythm S1 and S2. Lungs fair air movement without rales wheezes. Abdomen soft positive bowel sounds. Extremities no edema. laboratory and microbiology Laboratory Tests 01/25/25 05:25 Test 01/25/25 05:25 Range/Units Serum Glucose 136 H 74-106 mg/dL Assessment/Plan Given small-bowel follow-through study is normal I will start him on soft diet today see if he will tolerate overnight. Otherwise continue rest of supportive care and treatment as he is on. If he tolerates diet he will can be discharged home tomorrow. Dietary Evaluation Review Comments: 1) Ensure Enlive 240ml BID if PO intake <50% 2) Consider stool softener daily 3) Monitor wt trend, PO intake, lab values Expected Outcomes/Goals: GI symptom improve intkae to meet > 75% estimated needs FU 3-5 days Plan discussed with: Other LICO JONES MD Jan 27, 2025 14:09
[2025-01-27 15:20] LABS: Hematocrit 42.0 % (41.0-53.0); Hemoglobin 14.3 g/dL (13.5-17.5); Mean Corpuscular Hemoglobin 30.7 pg (28.0-32.0); Mean Corpuscular Volume 89.9 fL (80.0-100.0); Nucleated Red Blood Cells % 0.0 %
[2025-01-27 15:26] LABS: Chloride 103 mmol/L (98-107); Potassium 4.2 mmol/L (3.5-5.1); Sodium 137 mmol/L (136-145)
[2025-01-27 15:27] LABS: Anion Gap 13 (5-15); Carbon Dioxide 21 mmol/L (20-31)
[2025-01-27 15:28] LABS: Calcium 8.5 mg/dL (8.7-10.4)
[2025-01-27 15:32] LABS: BUN/Creatinine Ratio 5.9 (10.0-20.0); Blood Urea Nitrogen 46 mg/dL (9-23); Glucose 159 mg/dL (74-106)
[2025-01-27] MEDS: D5W/SOD CHL 0.45%/KCL 20MEQ 1,000 ML IV SCH (16:26)
[2025-01-27] MEDS: METOCLOPRAMIDE HCL 5MG/ml INJ 2ml VIAL IV SCH (17:51)
[2025-01-27] MEDS: ceFAZolin 1GM/50ML 50 ML IV SCH (22:48)
[2025-01-28] VITALS (18 sets, daily range): BP systolic 113–154; BP diastolic 74–84; PULSE 75–100; RESP 16–22; TEMP 98.1–99.1; O2SAT 92–100
[2025-01-28] MEDS: guaiFENesin-CODEINE Liq 5 ML UD PO PRN (05:35)
[2025-01-28 14:01] LABS: Chloride 104 mmol/L (98-107); Potassium 4.3 mmol/L (3.5-5.1); Sodium 138 mmol/L (136-145)
[2025-01-28 14:02] LABS: Anion Gap 14 (5-15); Carbon Dioxide 20 mmol/L (20-31)
[2025-01-28 14:06] LABS: Calcium 8.4 mg/dL (8.7-10.4)
[2025-01-28 14:07] LABS: BUN/Creatinine Ratio 6.4 (10.0-20.0)
[2025-01-28 14:12] LABS: Blood Urea Nitrogen 58 mg/dL (9-23); Glucose 150 mg/dL (74-106)
--- NOTE | 2025-01-28 14:27 | DVH ---
INDICATION: bph TECHNIQUE: Multiple real-time sonographic images of the kidneys and bladder were obtained. COMPARISON: None FINDINGS: The right kidney measures 12 cm in length. The right renal echogenicity, contour and cortic al thickness are within normal limits. The left kidney measures 11 cm in length. The left renal echogenicity, contour, and cortical thicknes s are within normal limits. Small bilateral hydronephrosis. No large intraluminal masses are seen in the bladder. IMPRESSION: 1. Small bilateral hydronephrosis.
--- NOTE | 2025-01-28 15:07 | DVHPN2 ---
Progress Note - Dictate Date Seen: Jan 28, 2025 Medical Necessity Reason Pt with a Central, PICC or Fol: No Subjective Patient is retaining urine without against rub BPH. Now he is in acute kidney injury due to obstructive uropathy. Patient had bowel movement post small-bowel follow-through study. No nausea or vomiting. vital signs Vital Sign Date Time Temp Pulse Resp B/P (MAP) Pulse Ox O2 Delivery O2 Flow Rate FiO2 01/28/25 12:40 98.1 95 18 151/83 (105) 97 98.1 01/28/25 10:00 Room Air 0.0 01/28/25 10:00 21 Total Intake and Output 01/27/25 01/27/25 01/28/25 15:00 23:00 07:00 Intake Total 50 ml 150 ml 1850 ml Balance 50 ml 150 ml 1850 ml medications Current Medications Medications Dose Ordered Sig/Tg Route Start Time Stop Time Status Last Admin Dose Admin Ondansetron HCl 4 mg Q6HPRN PRN IV 01/22/25 21:45 01/27/25 12:06 4 MG Tamsulosin HCl 0.4 mg QPM PO 01/23/25 18:00 01/27/25 17:46 0.4 MG Acetaminophen/ Codeine Phosphate 1 tab Q6HP PRN PO 01/24/25 12:15 01/27/25 22:58 1 TAB Morphine Sulfate 2 mg Q3HPRN PRN IV 01/25/25 13:30 01/26/25 16:36 2 MG Albuterol 2.5 mg Q6HR NEB 01/25/25 18:00 01/28/25 11:51 2.5 MG Guaifenesin/ Codeine Phosphate 10 ml Q6HPRN PRN PO 01/26/25 15:15 01/28/25 12:43 10 ML Metoclopramide HCl 5 mg Q6HR IV 01/27/25 18:00 01/28/25 12:43 5 MG Cefazolin Sodium 50 ml @ 50 mls/hr Q12HR IV 01/27/25 22:00 01/28/25 09:26 50 MLS/HR Sodium Chloride 1,000 ml @ 75 mls/hr [id number] IV 01/28/25 13:30 Finasteride 5 mg DAILY PO 01/29/25 10:00 objective Comfortable in bed without distress. His is at bedside. Complains of lower abdominal discomfort. Heart regular rate and rhythm S1-S2. Lungs fair air movement without rales wheezes. Abdomen soft positive bowel sounds. No significant distention. Extremities no edema. laboratory and microbiology Laboratory Tests 01/28/25 05:58 01/27/25 15:00 Test 01/28/25 05:58 Range/Units Serum Glucose 150 H 74-106 mg/dL Assessment/Plan Continue advance diet as he tolerates. Encouraged activity ambulation. We will have Elena catheter inserted given his obstructive uropathy from BPH and HENNY. Urology consultation. Follow the labs. Otherwise follow clinical management per clinical course. We will also do serial bladder scans to make sure he is not retaining urine. I will add finasteride and continue Flomax for his BPH. Discussed with the patient along with the nurse at bedside asl interpreter regarding care plan. Problems(with codes): (1) Incarcerated inguinal hernia, unilateral (2) Acute abdominal pain (3) SBO (small bowel obstruction) (4) BPH (benign prostatic hyperplasia) (5) Acute urinary retention Dietary Evaluation Review Comments: 1) Ensure Enlive 240ml BID if PO intake <50% 2) Consider stool softener daily 3) Monitor wt trend, PO intake, lab values Expected Outcomes/Goals: GI symptom improve intkae to meet > 75% estimated needs FU 3-5 days Plan discussed with: Patient, Spouse LICO JONES MD Jan 28, 2025 15:07
--- NOTE | 2025-01-28 16:21 | DVHINCON2 ---
Date of service: Jan 28, [address] Clemons Reason for Consultation difficult hinton placement History of Present Illness History Source: Patient, RN Notes, MD Notes Exam Limitations: Language barrier HPI 79 yo male with BPH s/p inguinal hernia repair. BUN and creatinine rising since surgery. No history. Bladder scan showed >800 mls. RN unable to place hinton. Urology asked to assist. After instillation of urethral glydo and allowing to dwell a 16 F coude catheter was placed in a sterile manner with moderate difficulty and immediate return of clear yellow urine. pt tolerated the procedure well and was grateful for relief. Home Meds Active Scripts Tamsulosin Hcl (Flomax) 0.4 Mg Cap, 1 CAP PO DAILY, #90 CAP 0 Refills Prov:ANICETO LUJAN MD 04/19/21 Reported Medications Terbinafine HCl (Terbinafine Hydrochloride) 250 Mg Tab, 1 TAB PO DAILYPRN 04/04/21 Past Medical History Others right and left inguinal hernias Patient Family History: Asthma G8 FATHER FH: ND (myocardial infarction) G8 MOTHER Hypertension G8 MOTHER Review of Systems Gastrointestinal: Abdominal Pain Genitourinary: Retention H&P Exam Vital Signs Vital Signs Date Time Temp Pulse Resp B/P (MAP) Pulse Ox O2 Delivery O2 Flow Rate FiO2 01/28/25 13:57 95 18 151/83 97 0.0 01/28/25 12:40 98.1 98.1 01/28/25 10:00 Room Air 01/28/25 10:00 21 General Appeara: Well developed, Well nourished, Normal Appearance Neuro/Mental St: Alert, Oriented Appearance: Appropriate appearance, Appropriate insight Eye contact/ Speech: Cooperative, Good eye contact, Normal speech Skin Exam: Normal inspection, Normal color, Warm/dry Labs/Xrays [address] [address] Ph: [phone] DIAGNOSTIC IMAGING Diagnostic Imaging Report : [id number] Signed PATIENT: DENICE CUEVAS MACCT: [id number] UNIT: [id number] : 1945 LOC: [facility] ROOM / BED: [facility] / B AGE / SEX: 79 / M ADM STATUS: ADM IN SERVICE 1330 ORDERING PHYSICIAN: LICO JONES MD PROCEDURE(s): KIDUS - KIDNEY REASON: bph ORDER NUMBER(s): [id number], ACCESSION NUMBER(s): [id number] INDICATION: bph TECHNIQUE: Multiple real-time sonographic images of the kidneys and bladder were obtained. COMPARISON: None FINDINGS: The right kidney measures 12 cm in length. The right renal echogenicity, contour and cortical thickness are within normal limits. The left kidney measures 11 cm in length. The left renal echogenicity, contour, and cortical thickness are within normal limits. Small bilateral hydronephrosis. No large intraluminal masses are seen in the bladder. IMPRESSION: 1. Small bilateral hydronephrosis. Labs Test 01/28/25 05:58 01/27/25 15:00 01/26/25 11:13 01/24/25 04:55 Range/Units Sodium Level 138 136-145 mmol/L Potassium Level 4.3 3.5-5.1 mmol/L Chloride Level 104 98-107 mmol/L Carbon Dioxide Level 20 20-31 mmol/L Anion Gap 14 5-15 Blood Urea Nitrogen 58 #H 9-23 mg/dL Creatinine 9.03 H 0.700-1.30 mg/dL Glomerular Filtration Rate Calc 5 >90 mL/min BUN/Creatinine Ratio 6.4 L 10.0-20.0 Serum Glucose 150 H 74-106 mg/dL Calcium Level 8.4 L 8.7-10.4 mg/dL White Blood Count 10.0 4.4-10.8 10^3/uL Red Blood Count 4.67 4.5-5.90 10^6/uL Hemoglobin 14.3 13.5-17.5 g/dL Hematocrit 42.0 41.0-53.0 % Mean Corpuscular Volume 89.9 80.0-100.0 fL Mean Corpuscular Hemoglobin 30.7 28.0-32.0 pg Mean Corpuscular Hemoglobin Concent 34.1 32.0-36.0 g/dL Red Cell Distribution Width 13.7 11.8-14.3 % Platelet Count 149 140-450 10^3/uL Mean Platelet Volume 8.7 6.9-10.8 fL Neutrophils (%) (Auto) 89.7 H 37.0-80.0 % Lymphocytes (%) (Auto) 2.4 L 10.0-50.0 % Monocytes (%) (Auto) 7.7 0.0-12.0 % Eosinophils (%) (Auto) 0.1 0.0-7.0 % Basophils (%) (Auto) 0.1 0.0-2.0 % Neutrophils # (Auto) 9.0 H 1.6-8.6 10 ^3/uL Lymphocytes # (Auto) 0.2 L 0.4-5.4 10 ^3/uL Monocytes # (Auto) 0.8 0-1.3 10 ^3/uL Eosinophils # (Auto) 0 0-0.8 10 ^3/uL Basophils # (Auto) 0 0-0.2 10 ^3/uL Nucleated Red Blood Cells 0.0 % POC Glucose 147 H 70-106 mg/dl Magnesium Level 2.7 H 1.6-2.6 mg/dL Test 01/23/25 05:50 01/22/25 15:06 01/22/25 00:00 Range/Units Prothrombin Time 10.9 9.3-11.8 sec Prothrombin Time INR 1.03 0.9-1.15 Lactic Acid Level 1.2 0.4-2.0 mmol/L Total Bilirubin 1.1 H 0.2-1.0 mg/dL Aspartate Amino Transferase (AST) 20 <34 U/L Alanine Aminotransferase (ALT) 17 7-40 U/L Alkaline Phosphatase 88 46-116 U/L Total Protein 7.3 5.7-8.2 g/dL Albumin 4.4 3.2-4.8 g/dL Lipase 30 12-53 U/L Urine Color Light-yellow Yellow Urine Clarity Clear Clear Urine pH 8.0 5.0-9.0 Urine Specific [place] 1.014 1.001-1.035 Urine Protein Negative Negative Urine Ketones 2+ H Negative Urine Blood Negative Negative /uL Urine Nitrite Negative Negative Urine Bilirubin Negative Negative Urine Urobilinogen Normal Negative mg/dL Urine Leukocyte Esterase Negative Negative /uL Urine RBC 2 0 - 3 /hpf Urine Microscopic WBC 1 0-3 /HPF Urine Squamous Epithelial Cells Few <5 /hpf Urine Bacteria None seen None Seen /hpf Urine Glucose Trace Normal mg/dL Assessment/Plan Problem List: (1) BPH (benign prostatic hyperplasia) (2) Acute urinary retention Plan d/c with hinton to leg bag voiding trial in office after creatinine reaches baseline. POC d/w pt and RN Plan discussed with: Patient, Spouse, Other ALEKSEY HOUSE NP Jan 28, 2025 16:21
[2025-01-28] MEDS: SODIUM CHLORIDE 0.9% 1,000 ML IV SCH (17:54)
[2025-01-28] MEDS: NYSTATIN (MOUTH-THROAT) 500,000 UNITS/5 ML SUSP MT SCH (21:35)
[2025-01-29] VITALS (12 sets, daily range): BP systolic 139–157; BP diastolic 84–92; PULSE 78–94; RESP 16–19; TEMP 36.9; O2SAT 92–99
[2025-01-29 06:54] LABS: Anion Gap 9 (5-15); Carbon Dioxide 24 mmol/L (20-31); Potassium 4.3 mmol/L (3.5-5.1); Sodium 141 mmol/L (136-145)
[2025-01-29 07:00] LABS: BUN/Creatinine Ratio 13.5 (10.0-20.0); Glucose 104 mg/dL (74-106)
[2025-01-29 07:07] LABS: Blood Urea Nitrogen 28 mg/dL (9-23); Calcium 8.6 mg/dL (8.7-10.4); Chloride 108 mmol/L (98-107)
[2025-01-29] MEDS: FINASTERIDE 5 MG TAB PO SCH (08:46)
[2025-01-29] MEDS ORDERED: HYDR-4902 PO (16:11)
[2025-01-29] MEDS ORDERED: FIN5T PO (16:11)
[2025-01-29] MEDS ORDERED: NALO4SPR2 (16:13)
[2025-01-29] MEDS ORDERED: AUG875T PO (16:13)
--- NOTE | 2025-01-29 16:20 | DVHDS2 ---
Discharge Summary Date of Admission Jan 22, 2025 at 21:52 Date of Discharge: Jan 29, 2025 Labs/Diagnostic Data: Laboratory Results Test 01/29/25 05:36 01/27/25 15:00 01/26/25 11:13 01/24/25 04:55 Sodium Level 141 mmol/L (136-145) Potassium Level 4.3 mmol/L (3.5-5.1) Chloride Level 108 mmol/L (98-107) Carbon Dioxide Level 24 mmol/L (20-31) Anion Gap 9 (5-15) Blood Urea Nitrogen 28 mg/dL (9-23) Creatinine 2.08 mg/dL (0.700-1.30) Glomerular Filtration Rate Calc 32 mL/min (>90) BUN/Creatinine Ratio 13.5 (10.0-20.0) Serum Glucose 104 mg/dL (74-106) Calcium Level 8.6 mg/dL (8.7-10.4) White Blood Count 10.0 10^3/uL (4.4-10.8) Red Blood Count 4.67 10^6/uL (4.5-5.90) Hemoglobin 14.3 g/dL (13.5-17.5) Hematocrit 42.0 % (41.0-53.0) Mean Corpuscular Volume 89.9 fL (80.0-100.0) Mean Corpuscular Hemoglobin 30.7 pg (28.0-32.0) Mean Corpuscular Hemoglobin Concent 34.1 g/dL (32.0-36.0) Red Cell Distribution Width 13.7 % (11.8-14.3) Platelet Count 149 10^3/uL (140-450) Mean Platelet Volume 8.7 fL (6.9-10.8) Neutrophils (%) (Auto) 89.7 % (37.0-80.0) Lymphocytes (%) (Auto) 2.4 % (10.0-50.0) Monocytes (%) (Auto) 7.7 % (0.0-12.0) Eosinophils (%) (Auto) 0.1 % (0.0-7.0) Basophils (%) (Auto) 0.1 % (0.0-2.0) Neutrophils # (Auto) 9.0 10 ^3/uL (1.6-8.6) Lymphocytes # (Auto) 0.2 10 ^3/uL (0.4-5.4) Monocytes # (Auto) 0.8 10 ^3/uL (0-1.3) Eosinophils # (Auto) 0 10 ^3/uL (0-0.8) Basophils # (Auto) 0 10 ^3/uL (0-0.2) Nucleated Red Blood Cells 0.0 % POC Glucose 147 mg/dl (70-106) Magnesium Level 2.7 mg/dL (1.6-2.6) Test 01/23/25 05:50 01/22/25 15:06 01/22/25 00:00 Prothrombin Time 10.9 sec (9.3-11.8) Prothrombin Time INR 1.03 (0.9-1.15) Lactic Acid Level 1.2 mmol/L (0.4-2.0) Total Bilirubin 1.1 mg/dL (0.2-1.0) Aspartate Amino Transferase (AST) 20 U/L (<34) Alanine Aminotransferase (ALT) 17 U/L (7-40) Alkaline Phosphatase 88 U/L (46-116) Total Protein 7.3 g/dL (5.7-8.2) Albumin 4.4 g/dL (3.2-4.8) Lipase 30 U/L (12-53) Urine Color Light-yellow (Yellow) Urine Clarity Clear (Clear) Urine pH 8.0 (5.0-9.0) Urine Specific [place] 1.014 (1.001-1.035) Urine Protein Negative (Negative) Urine Ketones 2+ (Negative) Urine Blood Negative /uL (Negative) Urine Nitrite Negative (Negative) Urine Bilirubin Negative (Negative) Urine Urobilinogen Normal mg/dL (Negative) Urine Leukocyte Esterase Negative /uL (Negative) Urine RBC 2 /hpf (0 - 3) Urine Microscopic WBC 1 /HPF (0-3) Urine Squamous Epithelial Cells Few /hpf (<5) Urine Bacteria None seen /hpf (None Seen) Urine Glucose Trace mg/dL (Normal) Other Laboratory Tests 01/29/25 05:36 01/27/25 15:00 Brief Hx & Hospital Course: 79-year-old male who initially presented to the hospital with a abdominal pain found to have small-bowel obstruction with a incarcerated right inguinal hernia. Patient was seen by General surgery underwent hernia repair. Postoperatively patient developed postoperative ileus which was improved. Patient has developed acute kidney injury suspected secondary to obstructive uropathy secondary to prostate enlargement eventually Urology was consulted. Patient underwent Elena catheter placement. Patient's kidney functions improved patient is currently stable to be discharged. Patient will be given some pain medication antibiotics for home. Patient is being discharged under stable condition. Condition at Discharge: Stable Final Diagnosis/Problems List 1. Small bowel obstruction with a Incarcerated right inguinal hernia status post hernia repair 2. Acute kidney injury suspected secondary to obstructive uropathy secondary to prostate enlargement, improved 3. Postop ileus, improved 4. Urinary retention secondary to obstructive uropathy status post Elena catheter placement, outpatient follow up with the Urology 4. Discharge Disposition: Home with [facility] Discharge Will this Physician continue t: No Discharge Instruct/Medications Diet: Cardiac 2g Na,low cholest Activity: See Comment Activity comment: No driving, no signing legal documents, no playing on heavy machinery while on narcotics. Follow Up/Referral: Follow up with the PCP in one week Follow up with Dr. Contreras in 1-2 weeks Medications: As reconciled and prescribed Scheduled Amoxicillin & Pot Clavulanate (Augmentin Tablet), 875 MG PO BID Finasteride (Finasteride), 5 MG PO DAILY Naloxone HCl (Narcan), 4 MG NA VP SITE Tamsulosin Hcl (Flomax), 1 CAP PO DAILY Terbinafine HCl (Terbinafine Hydrochloride), 1 TAB PO DAILYPRN, (Reported) Scheduled PRN Hydrocodone-Acetaminophen (Hydrocodone Bitartrate/AC 5-325 mg), 1 TAB PO Q8HP PRN Discharge Statement: "Patient was advised to return to the ER or call 911 if any headaches, dizziness, shortness of breath, chest pain, abdominal pain, bleeding, fevers, or worsening of medical condition. Patient was counseled about treatment plan, medications, possible side effects, patientverbalized understanding. All questions were answered to the best of my ability. This discharge took greater then 30 minutes in planning, reviewing documentation, counseling the patient, and discussing with other team members." ASSESSMENT ASSESSMENT Assessment 1. Small bowel obstruction with a Incarcerated right inguinal hernia status post hernia repair 2. Acute kidney injury suspected secondary to obstructive uropathy secondary to prostate enlargement, improved 3. Postop ileus, improved 4. Urinary retention secondary to obstructive uropathy status post Elena catheter placement, outpatient follow up with the Urology 4. Date of Service: Jan 29, 2025 Billing Provider: BHAVANA HORNE MD Common Visit Codes: NOT BILLABLE BHAVANA HORNE MD Jan 29, 2025 16:20
== END 2025-01-29 18:05 | disposition home or self-care (01) | DRG 351 ==
LOC: ER 14:27 → EDUNIT# 14:27 → EDBD 14:27 → OVERFLOW 21:52 → TELE-WESTW 23:42
PROVIDERS: ADMIT Nurse Practitioner Family; ATTEND Nurse Practitioner Family
PROC: 0YQ50ZZ Repair Right Inguinal Region, Open Approach (ICD-10-PCS; principal; 2025-01-24 10:59)
DX: K40.30 Unilateral inguinal hernia, with obstruction, without gangrene, not specified as recurrent (principal); K56.7 Ileus, unspecified; N17.9 Acute kidney failure, unspecified; K91.89 Other postprocedural complications and disorders of digestive system; J45.909 Unspecified asthma, uncomplicated; I10 Essential (primary) hypertension; K44.9 Diaphragmatic hernia without obstruction or gangrene; R33.8 Other retention of urine; N40.0 Benign prostatic hyperplasia without lower urinary tract symptoms; K57.30 Diverticulosis of large intestine without perforation or abscess without bleeding; Z60.3 Acculturation difficulty; Z79.899 Other long term (current) drug therapy; Z90.49 Acquired absence of other specified parts of digestive tract; Z82.49 Family history of ischemic heart disease and other diseases of the circulatory system; I25.2 Old myocardial infarction
CPT/HCPCS: 36415; 71045; 74176; 74250; 76775; 76870; 80048; 80053; 81001; 82565; 82962; 83605; 83690; 83735; 85025; 85610; 88302; 94640; 96365; 97110; 97116; 97163; 97530; G0378; J0131; J0690; J1100; J1885; J2003; J2405; J2470; J2543; J2704; J3490

== ENCOUNTER 2025-02-22 08:26 | Outpatient (CLI) | payer MEDICAID, OTHER ==
[~2025-02-22 08:26] MED LIST changes: +AUG875T PO; -CEPH-510 PO; -CIPR-173 PO; +FIN5T PO; +HYDR-4902 PO; -LACT10SO70 PO; -LEVO500T91 PO; +NALO4SPR2; -PANT40TA2 PO; -POLYPOW59 PO
[2025-02-22 09:13] LABS: Chloride 103 mmol/L (98-107); Potassium 4.0 mmol/L (3.5-5.1); Sodium 140 mmol/L (136-145)
[2025-02-22 09:14] LABS: Anion Gap 8 (5-15); Calcium 9.7 mg/dL (8.7-10.4); Carbon Dioxide 29 mmol/L (20-31)
[2025-02-22 09:19] LABS: BUN/Creatinine Ratio 10.0 (10.0-20.0); Blood Urea Nitrogen 11 mg/dL (9-23); Glucose 101 mg/dL (74-106)
== END 2025-02-22 17:00 | disposition home or self-care (01) ==
LOC: LAB 08:26
PROVIDERS: ATTEND Urology
DX: R33.8 Other retention of urine (principal)
CPT/HCPCS: 36415; 80048

== ENCOUNTER 2025-03-13 21:26 | Emergency (ER) | payer OTHER, MEDICAID ==
[~2025-03-13] VITALS: Ht 157.5 cm; Wt 61.1 kg
--- NOTE | 2025-03-13 22:20 | ED.PDOC ---
History of Present Illness HPI Comments 80 y/o Comoran speaking M presents with 3x week history of headache, room spinning dizziness, nausea, vomiting, and poor appetite. Patient is a poor historian. He endorses on onset of symptoms after, recently, having a hernia repair and Elena catheter placed for urinary retention 1x month ago. Patient reports on also still having occasional pain in his right-side around site of hernia repair. Denies any fever, chills, diarrhea, or further associated symptoms. Vital signs were stable. Chief Complaint: Headache Time Seen by MD: 21:45 Primary Care Provider: UNKNOWN Reviewed Notes: Nurses Notes, Medications, Allergies Allergies: Coded Allergies: NO KNOWN ALLERGIES (Unverified , 03/10/18) Home Meds Active Scripts Amoxicillin & Pot Clavulanate (AUGMENTIN TABLET) 875 Mg Tb, 875 MG PO BID for 5 Days, #10 TAB Prov:BHAVANA HORNE MD 01/29/25 Naloxone HCl (Narcan) 4 Mg/0.1 Ml Spr, 4 MG NA BENDER MACHINE, #2 SPRAY Prov:BHAVANA HORNE MD 01/29/25 Hydrocodone-Acetaminophen (Hydrocodone Bitartrate/AC 5-325 mg) 1 Tab Tab, 1 TAB PO Q8HP PRN, #10 TAB Prov:BHAVANA HORNE MD 01/29/25 Finasteride (Finasteride) 5 Mg Tab, 5 MG PO DAILY for 30 Days, #30 TAB Prov:BHAVANA HORNE MD 01/29/25 Tamsulosin Hcl (Flomax) 0.4 Mg Cap, 1 CAP PO DAILY, #90 CAP 0 Refills Prov:ANICETO LUJAN MD 04/19/21 Reported Medications Terbinafine HCl (Terbinafine Hydrochloride) 250 Mg Tab, 1 TAB PO DAILYPRN 04/04/21 Information Source: Patient Mode of Arrival: Ambulatory Severity: Moderate Timing: Weeks Duration: Since onset Prehospital treatment: None Past Medical History PAST MEDICAL HISTORY: UTI'S Past Medical History (Other): BPH HENNY Surgical History: Cholecystectomy, Hernia Repair (right inguinal hernia repair ) Surgical History (Other): postop ileus Family History Family History: Reviewed,noncontributory to illness Social History Smoker: Non-Smoker Alcohol: Denies ETOH Use Drugs: Denies Drug Use Lives In: Home Constitutional: reports: weakness; denies: chills, diaphoresis, fatigue, fever, malaise, sweats, others EENTM: denies: blurred vision, double vision, ear bleeding, ear discharge, ear drainage, ear pain, ear ringing, eye pain, eye redness, hearing loss, mouth pain, mouth swelling, nasal discharge, nose bleeding, nose congestion, nose pain, photophobia, tearing, throat pain, throat swelling, voice changes, others Respiratory: denies: cough, hemoptysis, orthopnea, SOB at rest, shortness of breath, SOB with excertion, stridor, wheezing, others Cardiovascular: denies: chest pain, dizzy spells, diaphoresis, Dyspnea on exertion, edema, irregular heart beat, left arm pain, lightheadedness, palpitations, PND, syncope, others Gastrointestinal: reports: nausea, vomiting; denies: abdomen distended, abdominal pain, blood streaked bowels, constipated, diarrhea, dysphagia, difficulty swallowing, hematemesis, melena, poor appetite, poor fluid intake, rectal bleeding, rectal pain, others Genitourinary: denies: burning, dysuria, flank pain, frequency, hematuria, incontinence, penile discharge, penile sore, pain, testicle pain, testicle swelling, urgency, others Neurological: reports: dizziness, headache; denies: fainting, left sided numbness, left sided weakness, numbness, paresthesia, pre-existing deficit, right sided numbness, right sided weakness, seizure, speech problems, tingling, tremors, weakness, others Musculoskeletal: denies: back pain, gout, joint pain, joint swelling, muscle pain, muscle stiffness, neck pain, others Integumetry: denies: bruises, change in color, change in hair/nails, dryness, laceration, lesions, lumps, rash, wounds, others Allergic/Immunocompromised: denies: Difficulty Healing, Frequent Infections, Hives, Itching, others Hematologic/Lymphatic: denies: anemia, blood clots, easy bleeding, easy bruising, swollen glands, others Endocrine: denies: excessive hunger, excessive sweating, excessive thirst, excessive urination, flushing, intolerance to cold, intolerance to heat, unexplained weight gain, unexplained weight loss, others Psychiatric: denies: anxiety, bipolar disorder, depression, hopeless, panic disorder, schizophrenia, sleepless, suicidal, others All Other Systems: Reviewed and Negative (Comprehensive review of systems are negativ unelss otherwise stated in HPI) Physical Exam General Appearance: Moderate Distress (Moderate distress due to intermittent complaints. Patient denies any current dizziness.), Normal HEENT: Head (Unremarkable cranial evaluation. No signs of trauma. No skull depressions or deformities.), Normal ENT Inspection, Pharynx Normal, TMs Normal Neck: Full Range of Motion, Non-Tender, Normal, Normal Inspection Respiratory: Chest Non-Tender, Lungs Clear, No Accessory Muscle Use, No Respiratory Distress, Normal Breath Sounds Cardiovascular: No Edema, No JVD, No Murmur, No Gallop, Normal Peripheral Pulses, Regular Rate/Rhythm Breast Exam: Deferred Gastrointestinal: No Organomegaly, Non Tender, No Pulsatile Mass, Normal Bowel Sounds, Soft Genitalia: Deferred Pelvic: Deferred Rectal: Deferred Extremities: Normal capillary refill, No pedal edema Neurologic: Alert Cerebellar Function: NOT DONE Reflexes: NOT DONE Skin: Dry, Normal Color, Warm Lymphatic: No Adenopathy Was a procedure done? Was a procedure done?: No Differential Dx Considerations may include: tension headache, migraines, dehydration, electrolyte imbalance, viral syndrome, UTI, CVA, TIA, among others X-Ray, Labs, Meds, VS Vital Signs Date Time Temp Pulse Resp B/P (MAP) Pulse Ox O2 Delivery O2 Flow Rate FiO2 03/14/25 00:10 Room Air* 0 21 03/14/25 00:10 97.9 78 16 156/84 (108) 96 97.9 03/13/25 21:29 98.0 77 18 155/80 97 98.0 Lab Test 03/13/25 22:13 03/13/25 22:00 Range/Units White Blood Count 5.0 4.4-10.8 10^3/uL Red Blood Count 4.54 4.5-5.90 10^6/uL Hemoglobin 14.0 13.5-17.5 g/dL Hematocrit 40.1 L 41.0-53.0 % Mean Corpuscular Volume 88.4 80.0-100.0 fL Mean Corpuscular Hemoglobin 30.9 28.0-32.0 pg Mean Corpuscular Hemoglobin Concent 34.9 32.0-36.0 g/dL Red Cell Distribution Width 14.3 11.8-14.3 % Platelet Count 178 140-450 10^3/uL Mean Platelet Volume 8.3 6.9-10.8 fL Neutrophils (%) (Auto) 64.2 37.0-80.0 % Lymphocytes (%) (Auto) 21.7 10.0-50.0 % Monocytes (%) (Auto) 11.4 0.0-12.0 % Eosinophils (%) (Auto) 2.6 0.0-7.0 % Basophils (%) (Auto) 0.1 0.0-2.0 % Neutrophils # (Auto) 3.2 1.6-8.6 10 ^3/uL Lymphocytes # (Auto) 1.1 0.4-5.4 10 ^3/uL Monocytes # (Auto) 0.6 0-1.3 10 ^3/uL Eosinophils # (Auto) 0.1 0-0.8 10 ^3/uL Basophils # (Auto) 0 0-0.2 10 ^3/uL Nucleated Red Blood Cells 0.0 % Sodium Level 142 136-145 mmol/L Potassium Level 3.8 3.5-5.1 mmol/L Chloride Level 106 98-107 mmol/L Carbon Dioxide Level 30 20-31 mmol/L Anion Gap 6 5-15 Blood Urea Nitrogen 11 9-23 mg/dL Creatinine 0.86 0.700-1.30 mg/dL Glomerular Filtration Rate Calc 88 >90 mL/min BUN/Creatinine Ratio 12.8 10.0-20.0 Serum Glucose 94 74-106 mg/dL Calcium Level 8.6 L 8.7-10.4 mg/dL Lipase 36 12-53 U/L Urine Color Colorless Yellow Urine Clarity Turbid H Clear Urine pH 6.5 5.0-9.0 Urine Specific [place] 1.011 1.001-1.035 Urine Protein Trace H Negative Urine Ketones Trace Negative Urine Blood 1+ H Negative /uL Urine Nitrite 2+ H Negative Urine Bilirubin Negative Negative Urine Urobilinogen Normal Negative mg/dL Urine Leukocyte Esterase 3+ Negative /uL Urine RBC 16 0 - 3 /hpf Urine WBC Clumps Present None Seen /hpf Urine Microscopic WBC 281 H 0-3 /HPF Urine Squamous Epithelial Cells None seen <5 /hpf Urine Bacteria Few H None Seen /hpf Urine Mucus Few None Seen Urine Glucose Normal Normal mg/dL Current Medications Medications (Trade) Dose Ordered Sig/Tg Route Start Time Stop Time Status Last Admin Acetaminophen/ Hydrocodone Bitart ([place] 5/325MG Tab) 1 tab ONCE ONCE PO 03/13/25 22:00 03/13/25 22:03 DC 03/14/25 00:14 Ketorolac Tromethamine (Toradol Injection) 15 mg ONCE ONCE IM 03/13/25 22:00 03/13/25 22:03 DC 03/14/25 00:15 Levofloxacin (Levaquin Tablet) 750 mg ONCE ONCE PO 03/13/25 23:45 03/13/25 23:46 DC 03/14/25 00:14 X-Ray, Labs, Meds, VS Comment All studies performed the ED were evaluated by me personally. Serum studies were unremarkable for any systemic concerns while urinalysis confirmed a substantial urinary tract infection. CT of the head was unremarkable for any intracranial concerns. Patient was given his 1st dose of antibiotics prior to discharge. Advised patient utilize medication as directed as well as additional medication as needed. Good hydration and healthy nutrition throughout. Time of 1ST Reevaluation: 00:36 Reevaluation 1ST: Improved Consultation: PCP Patient Education/Counseling: Diagnosis, Treatment, Need For Follow Up Family Education/Counseling: Diagnosis, Treatment, No Family Present SEPSIS Sepsis Screen Date sepsis recognized/suspect: Mar 13, 2025 Time Sepsis recognized/suspect: 2128 Recent Procedure: Yes (HERNIA SX ONE MONTH AGO) On Antibiotic Therapy: No Respiratory Rate >20: No Heart Rate >90: No Temp<36 C (96.8 F) or >38.3 C: No SBP <90 or MAP <65 mmHG: No New Acute Mental Status Change: No Is the patient on CPAP, BIPAP,: No Physician Orders Head Without Contrast (03/13/25 22:00) Vital Signs Date Time Temp Pulse Resp B/P (MAP) Pulse Ox O2 Delivery O2 Flow Rate FiO2 03/14/25 00:10 Room Air* 0 21 03/14/25 00:10 97.9 78 16 156/84 (108) 96 97.9 03/13/25 21:29 98.0 77 18 155/80 97 98.0 Laboratory Tests Test 03/13/25 22:13 White Blood Count 5.0 10^3/uL (4.4-10.8) Medications Medications Dose Ordered Sig/Tg Route Start Time Stop Time Status Last Admin Dose Admin Acetaminophen/ Hydrocodone Bitart 1 tab ONCE ONCE PO 03/13/25 22:00 03/13/25 22:03 DC 03/14/25 00:14 Ketorolac Tromethamine 15 mg ONCE ONCE IM 03/13/25 22:00 03/13/25 22:03 DC 03/14/25 00:15 Levofloxacin 750 mg ONCE ONCE PO 03/13/25 23:45 03/13/25 23:46 DC 03/14/25 00:14 Departure 1 Departure Time of Disposition: 00:36 Impression: Primary Impression: Acute UTI (urinary tract infection) Disposition: HOME / SELF CARE / HOMELESS Condition: Stable Additional Instructions: Advised patient utilize antibiotics as directed until completion. Additional medication as needed. Patient should practice good hydration and healthy nutrition throughout illness event. e-Prescriptions Ondansetron Odt 4MG Tab (ZOFRAN PO) 4 Mg Tb 4 MG PO Q6HP PRN, #20 TAB ODT TAB-DISSOLVE IN MOUTH, THEN SWALLOW Prov: MARLEN VENEGAS PAC 03/14/25 Acetaminophen (Acetaminophen) 500 Mg Tab 500 MG PO Q4HP PRN, #30 TAB Prov: MARLEN VENEGAS PAC 03/14/25 Levofloxacin Hemihydrate (LEVAQUIN 500 MG) 500 Mg Tab 1 TAB PO DAILY for 9 Days, #9 TAB Prov: MARLEN VENEGAS PAC 03/14/25 Discharged With: Self, Spouse Critical Care Note Critical Care Time?: No Stability Stability form required: No Heart Score Heart Score: Heart Score Response (Comments) Value History N/A 0 EKG N/A 0 Age N/A 0 Risk Factors N/A 0 Troponin N/A 0 Total 0 I personally scribed for MARLEN VENEGAS PAC ([email or web address]) on 03/13/25 at 22:20. Electronically submitted by Stephen Holley ([email or web address]). MARLEN VENEGAS PAC Mar 13, 2025 22:20
[2025-03-13 22:27] LABS: Urine Protein, UAD TRACE (Negative); Urine WBC Clumps PRESENT /hpf (None Seen)
[2025-03-13 22:28] LABS: Hematocrit 40.1 % (41.0-53.0); Hemoglobin 14.0 g/dL (13.5-17.5); Mean Corpuscular Hemoglobin 30.9 pg (28.0-32.0); Mean Corpuscular Volume 88.4 fL (80.0-100.0); Nucleated Red Blood Cells % 0.0 %
[2025-03-13 22:30] LABS: Chloride 106 mmol/L (98-107); Potassium 3.8 mmol/L (3.5-5.1); Sodium 142 mmol/L (136-145)
[2025-03-13 22:31] LABS: Anion Gap 6 (5-15); Carbon Dioxide 30 mmol/L (20-31)
[2025-03-13 22:36] LABS: BUN/Creatinine Ratio 12.8 (10.0-20.0); Blood Urea Nitrogen 11 mg/dL (9-23); Glucose 94 mg/dL (74-106); Lipase 36 U/L (12-53)
[2025-03-13 22:48] LABS: Calcium 8.6 mg/dL (8.7-10.4)
--- NOTE | 2025-03-13 23:13 | DVH ---
COMPUTERIZED TOMOGRAPHY OF THE HEAD WITHOUT CONTRAST REASON FOR STUDY: Severe posterior headache for three weeks COMPARISON: None TECHNIQUE: Helical tomographic scans were obtained through the brain. 2-D coronal and sagittal refor matted images are provided. Radiation optimization: All CT scans at this facility use at least one of these dose optimization techniques: Automated exposure control mA and/or kV adjustment per patient s ize (includes targeted exams where dose is matched to clinical indication) or iterative reconstructio n. RADIATION DOSE: CTDI: 53.38 mGy DLP: 1052.01 mGy-cm FINDINGS: No suspicious intracranial hyperdensity to suggest acute blood. There is no mass effect n or midline shift. There is mild generalized volume loss with compensatory enlargement of the CSF spac es. There is no hydrocephalus. The suprasellar cistern is intact. There are scattered periventricular and deep white matter hypodensities that are most consistent with chronic microangiopathic changes. The calvarium is intact. 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 The visualized ma stoid air cells are clear. There is mild mucosal thickening in the right maxillary sinus. The visual ized paranasal sinuses are otherwise clear. IMPRESSION: No acute intracranial abnormality. Mild generalized volume loss with chronic small vessel ischemic change. Mild mucosal thickening in the right maxillary sinus. Correlate clinically for acute sinusitis.
[2025-03-14] MEDS: HYDROcodone-ACET 5/325MG TAB PO ONE (00:14)
[2025-03-14] MEDS: levoFLOXacin 250 MG TAB PO ONE (00:14)
[2025-03-14] MEDS: KETOROLAC TROMETH 60MG/2ML VIAL IM ONE (00:15)
[2025-03-14] MEDS ORDERED: LEVO500T91 PO (00:37)
[2025-03-14] MEDS ORDERED: ZOFR4T PO (00:37)
[2025-03-14] MEDS ORDERED: ACET500T58 PO (00:37)
[2025-03-14 01:20] VITALS: BP 145/85; PULSE 81; RESP 17; TEMP 97.9; O2SAT 95
== END 2025-03-14 01:22 | disposition home or self-care (01) ==
LOC: ER 21:26
DX: N39.0 Urinary tract infection, site not specified (principal); Z98.890 Other specified postprocedural states; Z90.49 Acquired absence of other specified parts of digestive tract
CPT/HCPCS: 36415; 70450; 80048; 81001; 83690; 85025; 96372; 99285; J1885

== ENCOUNTER 2025-03-14 07:52 | Inpatient (IN) | payer OTHER, MEDICAID ==
[~2025-03-14] VITALS: Ht 160 cm; Wt 54.5 kg
[~2025-03-14 07:52] MED LIST changes: +ACET500T58 PO; +LEVO500T91 PO; +ZOFR4T PO
--- NOTE | 2025-03-14 08:01 | ED.PDOC ---
History of Present Illness HPI Comments 80 y/o M, BIBA, with PMHx of UTI's presents to the ED for CC of generalized weakness. EMS reports, patient is coming from home where he c/o generalized weakness with associated symptoms of fatigue, nausea, vomiting, poor appetite, and insomnia x4days. EMS relays, patient was seen at [facility] yesterday (03/14/25) for SS and was diagnosed with a UTI. Patient was departed home with no other remarkable findings. Time Seen by MD: 07:50 Primary Care Provider: UNKNOWN Reviewed Notes: Nurses Notes, Inpatient Coder Notes, Medications, Allergies Allergies: Coded Allergies: NO KNOWN ALLERGIES (Unverified , 03/10/18) 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, 4 MG NA CANDLEMAKER, #2 SPRAY Prov:BHAVANA HORNE MD 01/29/25 Hydrocodone-Acetaminophen (Hydrocodone Bitartrate/AC 5-325 mg) 1 Tab Tab, 1 TAB PO Q8HP PRN, #10 TAB Prov:BHAVANA HORNE MD 01/29/25 Finasteride (Finasteride) 5 Mg Tab, 5 MG PO DAILY for 30 Days, #30 TAB Prov:BHAVANA HORNE MD 01/29/25 Tamsulosin Hcl (Flomax) 0.4 Mg Cap, 1 CAP PO DAILY, #90 CAP 0 Refills Prov:ANICETO LUJAN MD 04/19/21 Reported Medications Terbinafine HCl (Terbinafine Hydrochloride) 250 Mg Tab, 1 TAB PO DAILYPRN 04/04/21 Information Source: Patient, Emergency Med Personnel Mode of Arrival: EMS Severity: Moderate Timing: Days Duration: Since onset Prehospital treatment: None Past Medical History PAST MEDICAL HISTORY: UTI'S Surgical History: Cholecystectomy, Hernia Repair Family History Family History: Reviewed,noncontributory to illness Social History Smoker: Non-Smoker Alcohol: Denies ETOH Use Drugs: Denies Drug Use Lives In: Home Constitutional: reports: fatigue, weakness; denies: chills, diaphoresis, fever, malaise, sweats, others EENTM: denies: blurred vision, double vision, ear bleeding, ear discharge, ear drainage, ear pain, ear ringing, eye pain, eye redness, hearing loss, mouth pain, mouth swelling, nasal discharge, nose bleeding, nose congestion, nose pain, photophobia, tearing, throat pain, throat swelling, voice changes, others Respiratory: denies: cough, hemoptysis, orthopnea, SOB at rest, shortness of breath, SOB with excertion, stridor, wheezing, others Cardiovascular: denies: chest pain, dizzy spells, diaphoresis, Dyspnea on exertion, edema, irregular heart beat, left arm pain, lightheadedness, palpitations, PND, syncope, others Gastrointestinal: reports: nausea, vomiting; denies: abdomen distended, abdominal pain, blood streaked bowels, constipated, diarrhea, dysphagia, diffic ulty swallowing, hematemesis, melena, poor appetite, poor fluid intake, rectal bleeding, rectal pain, others Genitourinary: denies: burning, dysuria, flank pain, frequency, hematuria, incontinence, penile discharge, penile sore, pain, testicle pain, testicle swelling, urgency, others Neurological: denies: dizziness, fainting, headache, left sided numbness, left sided weakness, numbness, paresthesia, pre-existing deficit, right sided numbness, right sided weakness, seizure, speech problems, tingling, tremors, weakness, others Musculoskeletal: denies: back pain, gout, joint pain, joint swelling, muscle pain, muscle stiffness, neck pain, others Integumetry: denies: bruises, change in color, change in hair/nails, dryness, laceration, lesions, lumps, rash, wounds, others Allergic/Immunocompromised: denies: Difficulty Healing, Frequent Infections, Hives, Itching, others Hematologic/Lymphatic: denies: anemia, blood clots, easy bleeding, easy bruising, swollen glands, others Endocrine: denies: excessive hunger, excessive sweating, excessive thirst, excessive urination, flushing, intolerance to cold, intolerance to heat, unexplained weight gain, unexplained weight loss, others Psychiatric: denies: anxiety, bipolar disorder, depression, hopeless, panic disorder, schizophrenia, sleepless, suicidal, others All Other Systems: Reviewed and Negative Physical Exam General Appearance: Moderate Distress HEENT: Normal ENT Inspection, Pharynx Normal, TMs Normal Neck: Full Range of Motion, Non-Tender, Normal, Normal Inspection Respiratory: Chest Non-Tender, Lungs Clear, No Accessory Muscle Use, No Respiratory Distress, Normal Breath Sounds Cardiovascular: No Edema, No JVD, No Murmur, No Gallop, Normal Peripheral Pulses, Regular Rate/Rhythm Breast Exam: Deferred Gastrointestinal: No Organomegaly, Non Tender, No Pulsatile Mass, Normal Bowel Sounds, Soft Genitalia: Deferred Pelvic: Deferred Rectal: Deferred Extremities: No calf tenderness, Normal inspection, No pedal edema Musculoskeletal : Apperance: Normal Neurologic: Alert, No Motor Deficits, No Sensory Deficits Cerebellar Function: NOT DONE Reflexes: NOT DONE Skin: Dry, Normal Color, Warm Peripheral Pulses: 3+ Radial (R), 3+ Radial (L) Lymphatic: No Adenopathy Was a procedure done? Was a procedure done?: No Differential Dx Considerations may include: UTI, DEHYDRATION, INSOMNIA, GASTRITIS, BACTERIAL, VIRAL X-Ray, Labs, Meds, VS Vital Signs Date Time Temp Pulse Resp B/P (MAP) Pulse Ox O2 Delivery O2 Flow Rate FiO2 03/14/25 10:36 Room Air* 0 21 03/14/25 10:35 98.3 89 16 125/61 (82) 95 98.3 03/14/25 08:10 85 03/14/25 07:56 98.9 96 17 157/87 96 98.9 Lab Test 03/14/25 08:37 03/14/25 08:06 Range/Units Urine Color Colorless Yellow Urine Clarity Turbid H Clear Urine pH 7.5 5.0-9.0 Urine Specific [place] 1.008 1.001-1.035 Urine Protein Negative Negative Urine Ketones Trace Negative Urine Blood Trace H Negative /uL Urine Nitrite 1+ H Negative Urine Bilirubin Negative Negative Urine Urobilinogen Normal Negative mg/dL Urine Leukocyte Esterase 3+ Negative /uL Urine RBC 8 0 - 3 /hpf Urine Microscopic WBC 229 H 0-3 /HPF Urine Squamous Epithelial Cells None seen <5 /hpf Urine Bacteria Few H None Seen /hpf Urine Glucose Normal Normal mg/dL White Blood Count 4.1 L 4.4-10.8 10^3/uL Red Blood Count 4.54 4.5-5.90 10^6/uL Hemoglobin 14.0 13.5-17.5 g/dL Hematocrit 40.4 L 41.0-53.0 % Mean Corpuscular Volume 88.9 80.0-100.0 fL Mean Corpuscular Hemoglobin 30.9 28.0-32.0 pg Mean Corpuscular Hemoglobin Concent 34.7 32.0-36.0 g/dL Red Cell Distribution Width 14.2 11.8-14.3 % Platelet Count 171 140-450 10^3/uL Mean Platelet Volume 8.5 6.9-10.8 fL Neutrophils (%) (Auto) 66.7 37.0-80.0 % Lymphocytes (%) (Auto) 19.1 10.0-50.0 % Monocytes (%) (Auto) 10.5 0.0-12.0 % Eosinophils (%) (Auto) 3.4 0.0-7.0 % Basophils (%) (Auto) 0.3 0.0-2.0 % Neutrophils # (Auto) 2.8 1.6-8.6 10 ^3/uL Lymphocytes # (Auto) 0.8 0.4-5.4 10 ^3/uL Monocytes # (Auto) 0.4 0-1.3 10 ^3/uL Eosinophils # (Auto) 0.1 0-0.8 10 ^3/uL Basophils # (Auto) 0 0-0.2 10 ^3/uL Nucleated Red Blood Cells 0.0 % Sodium Level 143 136-145 mmol/L Potassium Level 4.0 3.5-5.1 mmol/L Chloride Level 105 98-107 mmol/L Carbon Dioxide Level 30 20-31 mmol/L Anion Gap 8 5-15 Blood Urea Nitrogen 9 9-23 mg/dL Creatinine 0.89 0.700-1.30 mg/dL Glomerular Filtration Rate Calc 87 >90 mL/min BUN/Creatinine Ratio 10.1 10.0-20.0 Serum Glucose 103 74-106 mg/dL Calcium Level 9.0 8.7-10.4 mg/dL Troponin I High Sensitivity 11 </=54 ng/L Current Medications Medications (Trade) Dose Ordered Sig/Tg Route Start Time Stop Time Status Last Admin Sodium Chloride 1,000 ml @ 1,000 mls/hr Q1H ONCE IV 03/14/25 08:00 03/14/25 08:59 DC 03/14/25 08:18 Sodium Chloride 1,000 ml @ 150 mls/hr Q6H40M ONCE IV 03/14/25 08:00 03/14/25 14:39 03/14/25 09:02 Patient alert. Complaining of generalized symptoms. Was here for the same symptom yesterday. Blood pressure slightly elevated. He will need to be admitted for generalized weakness. He is moving his extremities. Reviewed his previous visit. Establish intravenous access. Was given fluids. Explained to the patient. Continue monitoring. [place] [id number] Ph: [phone] DIAGNOSTIC IMAGING Diagnostic Imaging Report : [id number] Signed PATIENT: DENICE CUEVAS MACCT: [id number] UNIT: [id number] : 1945 LOC: ER ROOM / BED: / AGE / SEX: 80 / M ADM STATUS: REG ER SERVICE 08 ORDERING PHYSICIAN: TAMMI SÁNCHEZ MD PROCEDURE(s): CXRP - CHEST PORTABLE REASON: sob ORDER NUMBER(s): [id number], ACCESSION NUMBER(s): [id number] CHEST RADIOGRAPH Indication: sob Technique: XY CHEST PORTABLE Comparison: None FINDINGS: The cardiac silhouette is unremarkable. The lungs demonstrate no pulmonary airspace consolidation. The pulmonary vasculature is prominent. There is no pleural effusion. There is no pneumothorax. IMPRESSION: Pulmonary vasculature congestion. ATED BY: ISADORA HOROWITZ MD DICTATED DATE/TIME: 03/14/25904 SIGNED BY: ISADORA HOROWITZ MD SIGNED DATE/TIME: 03/14/25904 CC: Time of 1ST Reevaluation: 08:20 Reevaluation 1ST: Unchanged Patient Education/Counseling: Diagnosis, Treatment Family Education/Counseling: No Family Present SEPSIS Sepsis Screen Physician Orders Sodium Chloride 0.9% (03/14/25 08:00) Chest Portable (03/14/25 08:00) Vital Signs Date Time Temp Pulse Resp B/P (MAP) Pulse Ox O2 Delivery O2 Flow Rate FiO2 03/14/25 10:36 Room Air* 0 21 03/14/25 10:35 98.3 89 16 125/61 (82) 95 98.3 03/14/25 08:10 85 03/14/25 07:56 98.9 96 17 157/87 96 98.9 Laboratory Tests Test 03/14/25 08:06 White Blood Count 4.1 10^3/uL (4.4-10.8) L Medications Medications Dose Ordered Sig/Tg Route Start Time Stop Time Status Last Admin Dose Admin Sodium Chloride 1,000 ml @ 150 mls/hr Q6H40M ONCE IV 03/14/25 08:00 03/14/25 14:39 03/14/25 09:02 Sodium Chloride 1,000 ml @ 1,000 mls/hr Q1H ONCE IV 03/14/25 08:00 03/14/25 08:59 DC 03/14/25 08:18 Departure 1 Departure Time of Disposition: 08:19 Impression: Primary Impression: Generalized weakness Additional Impression: HTN (hypertension) Qualified Codes: I10 - Essential (primary) hypertension Disposition: 09 ADMITTED INPATIENT Admit to: Med Surg Condition: Guarded Critical Care Note Critical Care Time?: No Stability Stability form required: No Heart Score Heart Score: Heart Score Response (Comments) Value History N/A 0 EKG N/A 0 Age N/A 0 Risk Factors N/A 0 Troponin N/A 0 Total 0 I personally scribed for TAMMI SÁNCHEZ MD ([email or web address]) on 03/14/25 at 08:01. Electronically submitted by Shandra Felix ([email or web address]). I personally scribed for TAMMI SÁNCHEZ MD ([email or web address]) on 03/14/25 at 11:27. Electronically submitted by Shandra Felix ([email or web address]). TAMMI SÁNCHEZ MD Mar 14, 2025 08:01
--- NOTE | 2025-03-14 08:15 | ECG ---
[facility] Test Date: 2025-03-14 Test Time: 08:10:57 Pat Name: DENICE CUEVAS Department: Room: [address] [place] [address] Gender: M Viscosity Tester: : 1945 Requested By: TAMMI SÁNCHEZ Order Number: [id number] Reading MD: David Donaldson Measurements Intervals Branch Rate: 85 P: 69 MO: 129 QRS: 79 QRSD: 86 T: 72 QT: 369 QTc: 439 Interpretive Statements Sinus rhythm Electronically Signed On 03-15-2025 22:59:44 PDT by David Donaldson Please click the below link to view image of tracing.
[2025-03-14] MEDS: SODIUM CHLORIDE 0.9% 1,000 ML IV ONE ×2 (08:18→09:02)
[2025-03-14 08:33] LABS: Chloride 105 mmol/L (98-107); Hematocrit 40.4 % (41.0-53.0); Hemoglobin 14.0 g/dL (13.5-17.5); Mean Corpuscular Hemoglobin 30.9 pg (28.0-32.0); Mean Corpuscular Volume 88.9 fL (80.0-100.0); Nucleated Red Blood Cells % 0.0 %; Potassium 4.0 mmol/L (3.5-5.1); Sodium 143 mmol/L (136-145)
[2025-03-14 08:34] LABS: Anion Gap 8 (5-15); Calcium 9.0 mg/dL (8.7-10.4); Carbon Dioxide 30 mmol/L (20-31)
[2025-03-14 08:39] LABS: BUN/Creatinine Ratio 10.1 (10.0-20.0); Blood Urea Nitrogen 9 mg/dL (9-23); Glucose 103 mg/dL (74-106)
--- NOTE | 2025-03-14 09:05 | DVH ---
CHEST RADIOGRAPH Indication: sob Technique: XY CHEST PORTABLE Comparison: None FINDINGS: The cardiac silhouette is unremarkable. The lungs demonstrate no pulmonary airspace consolidation. Th e pulmonary vasculature is prominent. There is no pleural effusion. There is no pneumothorax. IMPRESSION: Pulmonary vasculature congestion.
[2025-03-14 09:16] LABS: Urine Protein, UAD Negative (Negative)
[2025-03-14] MEDS ORDERED: ONDANSETRON HCL 4 MG/2 ML VIAL IV PRN ×2 (11:00→20:30)
[2025-03-14] MEDS ORDERED: NITROGLYCERIN 0.4 MG SL TAB SL PRN (11:00)
[2025-03-14] MEDS ORDERED: MORPHINE SULFATE INJ 2 MG/ml SYRG IV PRN ×2 (11:00)
[2025-03-14] MEDS: cefTRIAXone 1GM/50ML D5W 50 ML IV ONE (11:11)
[2025-03-14] MEDS: SODIUM CHLORIDE 0.9% 1,000 ML IV SCH ×2 (12:41→22:17)
[2025-03-14 12:42] VITALS: PULSE 88; RESP 18; O2SAT 96
[2025-03-14 13:00] VITALS: BP 131/71; PULSE 80; RESP 18; TEMP 98.2; O2SAT 97
[2025-03-14] MEDS: ACETAMINOPHEN 325 MG TAB PO PRN (13:32)
[2025-03-14] MEDS: CALCIUM CARB 500 MG CHEW TAB PO SCH (14:37)
[2025-03-14] MEDS: DOCUSATE SOD 100 MG CAP PO PRN (14:37)
[2025-03-14] MEDS: HYDROcodone-ACET 5/325MG TAB PO PRN (16:34)
[2025-03-14 20:00] VITALS: BP 120/67; PULSE 72; RESP 18; TEMP 98.3; O2SAT 99
[2025-03-14 20:29] VITALS: PULSE 74; RESP 20; O2SAT 95
[2025-03-14] MEDS ORDERED: MELATONIN 5 MG TAB PO SCH (22:00)
[2025-03-14] MEDS: MELATONIN 5 MG TAB PO PRN (22:17)
[2025-03-14] MEDS: FAMOTIDINE 20 MG TAB PO SCH (22:17)
[2025-03-14 23:11] VITALS: BP 121/74; PULSE 75; RESP 16; O2SAT 96
[2025-03-15 01:01] VITALS: BP 109/53; PULSE 70; RESP 19; O2SAT 94
--- NOTE | 2025-03-15 01:27 | DVHHP2 ---
Admitting Diagnosis: Generalized weakness, UTI History of Present Illness History Source: Patient Exam Limitations: No limitations HPI Mr. Flako Hines is an 80 yo male with a past history of UTI's presents with a chief complaint of generalized weakness. Patient reports generalized weakness with associated symptoms of fatigue, nausea, vomiting, poor appetite, and insomnia x4days. Patient was seen at [facility] on 03/14/25 for same symptoms and was diagnosed with a UTI. Patient was departed home with no other remarkable findings. Patient endorses he has had a poor appetite for 1 week. Denies chest pain, abdominal pain, nausea, vomiting, diarrhea, constipation, dysuria, hematuria. Patient admitted for further evaluation. 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, #2 SPRAY Prov:BHAVANA HORNE MD 01/29/25 Hydrocodone-Acetaminophen (Hydrocodone Bitartrate/AC 5-325 mg) 1 Tab Tab, 1 TAB PO Q8HP PRN, #10 TAB Prov:BHAVANA HORNE MD 01/29/25 Finasteride (Finasteride) 5 Mg Tab, 5 MG PO DAILY for 30 Days, #30 TAB Prov:BHAVANA HORNE MD 01/29/25 Tamsulosin Hcl (Flomax) 0.4 Mg Cap, 1 CAP PO DAILY, #90 CAP 0 Refills Prov:ANICETO LUJAN MD 04/19/21 Reported Medications Terbinafine HCl (Terbinafine Hydrochloride) 250 Mg Tab, 1 TAB PO DAILYPRN 04/04/21 Past Medical History Cardiac: No pertinent Hx Pulmonary: No pertinent Hx Central Nervous System: No pertinent Hx GI: No pertinent Hx Hemotology/Oncology: No pertinent Hx Hepatobiliary: No pertinent Hx Psychiatric: No pertinent Hx Musculoskeletal: No pertinent Hx Rheumotologic: No pertinent Hx Infectious Disease: No peritnent Hx ENT: No pertinent Hx Renal/: UTI Endocrine: No pertinent Hx Dermatology: No pertinent Hx Patient Family History: Asthma G8 FATHER FH: [facility] (myocardial infarction) G8 MOTHER Hypertension G8 MOTHER Smoker: No Hx (Negative) Alocohol: None Drugs: None Lives with: With family Domestic Violence: Neg Review of Systems Constitutional: Weakness Ears, Nose, & Throat: No symptom reported Eyes: No symptom reported Pulmonary/Respiratory: No symptom reported Cardiovascular: No symptom reported Gastrointestinal: No symptom reported Genitourinary: No symptom reported Musculoskeletal: No symptom reported Skin: No symptom reported Psychiatric: No symptom reported Endocrine: No symptom reported Hemotologic/Lymphatic: No symptom reported H&P Exam Vital Signs Vital Signs Date Time Temp Pulse Resp B/P (MAP) Pulse Ox O2 Delivery O2 Flow Rate FiO2 03/15/25 01:01 70 19 109/53 (71) 94 03/14/25 20:29 Room Air* 0 21 03/14/25 20:29 97.3 97.3 General Appeara: Well developed, Well nourished, Normal Appearance Head Exam: Normal inspection Neck Exam: Normal inspection, Non-tender, Normal alignment Eye Exam: bilateral eye Normal inspection, bilateral eye PERRL, bilateral eye EOMI Ear Exam: bilateral ear Auricle normal Nasal Exam: Normal inspection Mouth: Normal Inspection Pulmonary/Respiratory: Normal inspection, Normal breath sounds, Chest non- tender, Lungs clear Cardiovascular/Chest: Normal inspection, Regular rate, Normal Rhythm Peripheral Pulses: 2+ dorsalis pedis (R), 2+ dorsalis pedis (L), 2+ Radial (R), 2+ Radial (L) Abdominal Exam: Normal bowel sounds, Soft, No tenderness 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 TESTER Exam: Normal hearing, Normal speech, PERRL Motor/Sensory: Normal sensory function, Normal motor function Neuro/Mental St: Alert, Oriented Appearance: Appropriate appearance, Appropriate insight Eye contact/ Speech: Cooperative, Good eye contact, Normal speech Skin Exam: Normal inspection, Normal color, Warm/dry SEPSIS Sepsis Screen Date sepsis recognized/suspect: Mar 14, 2025 Time Sepsis recognized/suspect: 2031 Recent Procedure: No On Antibiotic Therapy: No Respiratory Rate >20: No Heart Rate >90: No Temp<36 C (96.8 F) or >38.3 C: No SBP <90 or MAP <65 mmHG: No New Acute Mental Status Change: No Is the patient on CPAP, BIPAP,: No Physician Orders Admit (03/14/25 20:13) * General Maintenance Engineer Consult (03/14/25 ) Stat Ekg For Chest Pain (03/14/25 20:13) Notify Md Of Changes From Base (03/14/25 20:13) Aligning Checker For 24 Hours (03/14/25 20:13) Emergency Dysrhythmia Protocol (03/14/25 20:13) Rhythm Strips Once Every Shift (03/14/25 20:13) Oxygen By Nasal Cannula (03/14/25 20:13) Pt Request For Service (03/14/25 20:23) Ceftriaxone 1gm/50ml D5w (Rocephin) (03/15/25 09:00) Docusate Sodium Capsule (Colace Capsule) (03/14/25 20:30) Ondansetron Hcl (Zofran) (03/14/25 20:30) Melatonin (Melatonin) (03/14/25 20:30) Famotidine Tablet (Pepcid Tablet) (03/14/25 22:00) Acetaminophen Tablet (Tylenol Tablet) (03/14/25 20:30) Sodium Chloride 0.9% (03/14/25 20:30) Calcium Carbonate (Tums) (03/15/25 08:00) Vital Signs Date Time Temp Pulse Resp B/P (MAP) Pulse Ox O2 Delivery O2 Flow Rate FiO2 03/15/25 01:01 70 19 109/53 (71) 94 03/14/25 23:11 75 16 121/74 (90) 96 03/14/25 22:43 85 12 153/78 (103) 92 03/14/25 20:29 74 20 95 Room Air* 0 21 03/14/25 20:29 97.3 74 20 139/77 (97) 95 97.3 03/14/25 20:00 98.3 72 18 120/67 (84) 99 98.3 Medications Medications Dose Ordered Sig/Tg Route Start Time Stop Time Status Last Admin Dose Admin Calcium Carbonate 500 mg TIDP PO 03/14/25 14:00 03/14/25 19:10 DC 03/14/25 14:37 500 MG Docusate Sodium 100 mg BIDPRN PRN PO 03/14/25 13:30 03/14/25 19:10 DC 03/14/25 14:37 100 MG Famotidine 20 mg BID PO 03/14/25 22:00 03/14/25 22:17 20 MG Melatonin 5 mg ONCE@2200 PRN PO 03/14/25 20:30 03/14/25 22:17 5 MG Sodium Chloride 1,000 ml @ 100 mls/hr Q10H IV 03/14/25 20:30 03/14/25 22:17 100 MLS/HR Labs/Xrays Labs Test 03/14/25 08:37 03/14/25 08:06 Range/Units Urine Color Colorless Yellow Urine Clarity Turbid H Clear Urine pH 7.5 5.0-9.0 Urine Specific [place] 1.008 1.001-1.035 Urine Protein Negative Negative Urine Ketones Trace Negative Urine Blood Trace H Negative /uL Urine Nitrite 1+ H Negative Urine Bilirubin Negative Negative Urine Urobilinogen Normal Negative mg/dL Urine Leukocyte Esterase 3+ Negative /uL Urine RBC 8 0 - 3 /hpf Urine Microscopic WBC 229 H 0-3 /HPF Urine Squamous Epithelial Cells None seen <5 /hpf Urine Bacteria Few H None Seen /hpf Urine Glucose Normal Normal mg/dL White Blood Count 4.1 L 4.4-10.8 10^3/uL Red Blood Count 4.54 4.5-5.90 10^6/uL Hemoglobin 14.0 13.5-17.5 g/dL Hematocrit 40.4 L 41.0-53.0 % Mean Corpuscular Volume 88.9 80.0-100.0 fL Mean Corpuscular Hemoglobin 30.9 28.0-32.0 pg Mean Corpuscular Hemoglobin Concent 34.7 32.0-36.0 g/dL Red Cell Distribution Width 14.2 11.8-14.3 % Platelet Count 171 140-450 10^3/uL Mean Platelet Volume 8.5 6.9-10.8 fL Neutrophils (%) (Auto) 66.7 37.0-80.0 % Lymphocytes (%) (Auto) 19.1 10.0-50.0 % Monocytes (%) (Auto) 10.5 0.0-12.0 % Eosinophils (%) (Auto) 3.4 0.0-7.0 % Basophils (%) (Auto) 0.3 0.0-2.0 % Neutrophils # (Auto) 2.8 1.6-8.6 10 ^3/uL Lymphocytes # (Auto) 0.8 0.4-5.4 10 ^3/uL Monocytes # (Auto) 0.4 0-1.3 10 ^3/uL Eosinophils # (Auto) 0.1 0-0.8 10 ^3/uL Basophils # (Auto) 0 0-0.2 10 ^3/uL Nucleated Red Blood Cells 0.0 % Sodium Level 143 136-145 mmol/L Potassium Level 4.0 3.5-5.1 mmol/L Chloride Level 105 98-107 mmol/L Carbon Dioxide Level 30 20-31 mmol/L Anion Gap 8 5-15 Blood Urea Nitrogen 9 9-23 mg/dL Creatinine 0.89 0.700-1.30 mg/dL Glomerular Filtration Rate Calc 87 >90 mL/min BUN/Creatinine Ratio 10.1 10.0-20.0 Serum Glucose 103 74-106 mg/dL Calcium Level 9.0 8.7-10.4 mg/dL Troponin I High Sensitivity 11 </=54 ng/L Assessment/Plan Problem List: (1) Generalized weakness (2) Urinary tract infection Plan This is an 80 yo male with known history of UTI's who presents to the hospital with generalized weakness. Patient was found to have 1. Acute urinary tract infection 2. Generalized weakness Plan Admit Med Surgical IV antibiotic IV fluids GI ppx DVT ppx Urine Culture PT evaluation Social Service consultation Discussed all above with patient in [place], patient verbalized agreement and understanding of care plan. All questions were answered. Plan discussed with: Patient, Other Code Visit Code Visit Total Time (mins): 45 LALO PAEZ Mar 15, 2025 01:27 BHAVANA HORNE MD Mar 15, 2025 15:04
[2025-03-15 05:03] VITALS: BP 117/79; PULSE 72; RESP 12; O2SAT 94
[2025-03-15 08:00] VITALS: PULSE 88; RESP 16; O2SAT 96
--- NOTE | 2025-03-15 08:16 | DVHPNRES ---
Progress Note Subjective Review of Systems Donny Arriola is 80-year-old male with past medical history of Previous hospitalization: PMHx: PSHx: Family history: Social history: Home medication: finasteride, naloxone, tamsulosin, terbinafine Allergic history: He was examined at bedside today, HBS. Objective vital signs Vital Sign Date Time Temp Pulse Resp B/P (MAP) Pulse Ox O2 Delivery O2 Flow Rate FiO2 03/15/25 08:00 88 16 96 Room Air* 0 21 03/15/25 08:00 155/70 (98) 03/15/25 07:00 97.4 97.4 Total Intake and Output 03/14/25 03/14/25 03/15/25 15:00 23:00 07:00 Intake Total 1120 ml 1 ml Balance 1120 ml 1 ml medications Current Medications Medications Dose Ordered Sig/Tg Route Start Time Stop Time Status Last Admin Dose Admin Ceftriaxone Sodium 50 ml @ 100 mls/hr DAILY@09 IV 03/15/25 09:00 Docusate Sodium 100 mg BIDPRN PRN PO 03/14/25 20:30 Ondansetron HCl 4 mg Q6HPRN PRN IV 03/14/25 20:30 Melatonin 5 mg ONCE@2200 PRN PO 03/14/25 20:30 03/14/25 22:17 5 MG Famotidine 20 mg BID PO 03/14/25 22:00 03/14/25 22:17 20 MG Acetaminophen 650 mg Q6HPRN PRN PO 03/14/25 20:30 Sodium Chloride 1,000 ml @ 100 mls/hr Q10H IV 03/14/25 20:30 03/14/25 22:17 100 MLS/HR Calcium Carbonate 500 mg TIDWM PO 03/15/25 08:00 laboratory and microbiology Laboratory Tests 03/14/25 08:06 Test 03/14/25 08:06 Range/Units Serum Glucose 103 74-106 mg/dL Problem List/Assessment/Plan Problem List/Assessment/Plan neutropenia UA positive for UTI Monitor on telemetry EKG: SINUS RHYTHM CXR: Pulmonary vasculature congestion. IV ceftriaxone Pain management, Zofran IV fluids NS Malleolus with calcium carbonate p.o. ? history of BPH DIET: Regular Liquid DVT PROPHYLAXIS: Lovenox GI PROPHYLAXIS: Pepcid CODE STATUS: Goals of care discussed with patient at bedside for more than 25 minutes. Full code DISPOSITION: Med/surge Patient's status and plan discussed with the patient. Case discussed with Dr. Guardado. Plan discussed with: Patient AMA CROOK RESIDENT Mar 15, 2025 08:16
[2025-03-15 09:21] VITALS: BP 152/92; PULSE 91; RESP 20; TEMP 98.3; O2SAT 96
[2025-03-15 09:34] LABS: Hematocrit 43.6 % (41.0-53.0); Hemoglobin 15.1 g/dL (13.5-17.5); Mean Corpuscular Hemoglobin 30.9 pg (28.0-32.0); Mean Corpuscular Volume 89.2 fL (80.0-100.0); Nucleated Red Blood Cells % 0.0 %
[2025-03-15] MEDS: CALCIUM CARB 500 MG CHEW TAB PO SCH (09:40)
[2025-03-15] MEDS: ACETAMINOPHEN 325 MG TAB PO PRN (09:41)
[2025-03-15] MEDS: DOCUSATE SOD 100 MG CAP PO PRN (09:41)
[2025-03-15] MEDS ORDERED: ENOXAPARIN SOD 40 MG/0.4 ML SYRINGE SC SCH (10:00)
[2025-03-15 10:03] LABS: Alanine Aminotransferase 17 U/L (7-40); Albumin 4.1 g/dL (3.2-4.8); Alkaline Phosphatase 75 U/L (46-116); Anion Gap 8 (5-15); BUN/Creatinine Ratio 12.1 (10.0-20.0); Blood Urea Nitrogen 11 mg/dL (9-23); Calcium 9.0 mg/dL (8.7-10.4); Carbon Dioxide 30 mmol/L (20-31); Chloride 104 mmol/L (98-107); Glucose 102 mg/dL (74-106); Potassium 3.8 mmol/L (3.5-5.1); Sodium 142 mmol/L (136-145); Total Protein 6.5 g/dL (5.7-8.2)
[2025-03-15 10:04] LABS: Bilirubin, Total 1.1 mg/dL (0.2-1.0)
[2025-03-15] MEDS: cefTRIAXone 1GM/50ML D5W 50 ML IV SCH (10:07)
[2025-03-15 13:00] VITALS: BP 121/71; PULSE 78; RESP 18; TEMP 99.2; O2SAT 99
--- NOTE | 2025-03-15 15:07 | DVHDS2 ---
Discharge Summary Date of Admission Mar 14, 2025 at 10:59 Date of Discharge: Mar 15, 2025 Labs/Diagnostic Data: Laboratory Results Test 03/15/25 07:06 03/14/25 08:37 03/14/25 08:06 White Blood Count 4.9 10^3/uL (4.4-10.8) Red Blood Count 4.89 10^6/uL (4.5-5.90) Hemoglobin 15.1 g/dL (13.5-17.5) Hematocrit 43.6 % (41.0-53.0) Mean Corpuscular Volume 89.2 fL (80.0-100.0) Mean Corpuscular Hemoglobin 30.9 pg (28.0-32.0) Mean Corpuscular Hemoglobin Concent 34.6 g/dL (32.0-36.0) Red Cell Distribution Width 14.2 % (11.8-14.3) Platelet Count 171 10^3/uL (140-450) Mean Platelet Volume 8.5 fL (6.9-10.8) Neutrophils (%) (Auto) 69.6 % (37.0-80.0) Lymphocytes (%) (Auto) 18.8 % (10.0-50.0) Monocytes (%) (Auto) 7.7 % (0.0-12.0) Eosinophils (%) (Auto) 3.7 % (0.0-7.0) Basophils (%) (Auto) 0.2 % (0.0-2.0) Neutrophils # (Auto) 3.4 10 ^3/uL (1.6-8.6) Lymphocytes # (Auto) 0.9 10 ^3/uL (0.4-5.4) Monocytes # (Auto) 0.4 10 ^3/uL (0-1.3) Eosinophils # (Auto) 0.2 10 ^3/uL (0-0.8) Basophils # (Auto) 0 10 ^3/uL (0-0.2) Nucleated Red Blood Cells 0.0 % Sodium Level 142 mmol/L (136-145) Potassium Level 3.8 mmol/L (3.5-5.1) Chloride Level 104 mmol/L (98-107) Carbon Dioxide Level 30 mmol/L (20-31) Anion Gap 8 (5-15) Blood Urea Nitrogen 11 mg/dL (9-23) Creatinine 0.91 mg/dL (0.700-1.30) Glomerular Filtration Rate Calc 85 mL/min (>90) BUN/Creatinine Ratio 12.1 (10.0-20.0) Serum Glucose 102 mg/dL (74-106) Calcium Level 9.0 mg/dL (8.7-10.4) Total Bilirubin 1.1 mg/dL (0.2-1.0) Aspartate Amino Transferase (AST) 19 U/L (13-40) Alanine Aminotransferase (ALT) 17 U/L (7-40) Alkaline Phosphatase 75 U/L (46-116) Total Protein 6.5 g/dL (5.7-8.2) Albumin 4.1 g/dL (3.2-4.8) Urine Color Colorless (Yellow) Urine Clarity Turbid (Clear) Urine pH 7.5 (5.0-9.0) Urine Specific [place] 1.008 (1.001-1.035) Urine Protein Negative (Negative) Urine Ketones Trace (Negative) Urine Blood Trace /uL (Negative) Urine Nitrite 1+ (Negative) Urine Bilirubin Negative (Negative) Urine Urobilinogen Normal mg/dL (Negative) Urine Leukocyte Esterase 3+ /uL (Negative) Urine RBC 8 /hpf (0 - 3) Urine Microscopic WBC 229 /HPF (0-3) Urine Squamous Epithelial Cells None seen /hpf (<5) Urine Bacteria Few /hpf (None Seen) Urine Glucose Normal mg/dL (Normal) Troponin I High Sensitivity 11 ng/L (</=54) Other Laboratory Tests 03/15/25 07:06 Brief Hx & Hospital Course: 80-year-old male with a known history of BPH currently on tamsulosin and finasteride who initially presented to the hospital with a failure to thrive not eating and generalized weak. Patient was found to have UTI. Patient was treated with the IV antibiotics. Patient's urine culture came back Gram- positive rods. Eventually blood cultures were ordered to determine the source but patient left against medical advice before completion of workup and treatment. Patient is fully awake alert oriented and knows the risk of leaving against medical advice including sepsis, life-threatening illness and . Condition at Discharge: Undetermined Final Diagnosis/Problems List 1. Urinary tract infection 2. Failure to thrive 3. Generalized weakness 4. 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 Patient was counseled about treatment plan, medications, possible side effects, patientverbalized understanding. All questions were answered to the best of my ability. This discharge took greater then 30 minutes in planning, reviewing documentation, counseling the patient, and discussing with other team members." ASSESSMENT ASSESSMENT Assessment Date of Service: Mar 15, 2025 Billing Provider: BHAVANA HORNE MD Common Visit Codes: NOT BILLABLE BHAVANA HORNE MD Mar 15, 2025 15:07
[2025-03-15] MEDS ORDERED: TAMSULOSIN HYDROCHLORIDE 0.4 MG CAP PO SCH (18:00)
== END 2025-03-15 13:55 | disposition left against medical advice (07) | DRG 690 ==
LOC: ER 07:52 → EDUNIT# 07:52 → EDBD 07:52 → OVERFLOW 10:59
PROVIDERS: ADMIT Nurse Practitioner Family; ATTEND Nurse Practitioner Family
DX: N39.0 Urinary tract infection, site not specified (principal); R62.7 Adult failure to thrive; I10 Essential (primary) hypertension; Z53.29 Procedure and treatment not carried out because of patient's decision for other reasons; J45.909 Unspecified asthma, uncomplicated; D70.9 Neutropenia, unspecified; N40.0 Benign prostatic hyperplasia without lower urinary tract symptoms; Z82.49 Family history of ischemic heart disease and other diseases of the circulatory system; Z79.2 Long term (current) use of antibiotics; Z79.899 Other long term (current) drug therapy; Z90.49 Acquired absence of other specified parts of digestive tract; Z68.21 Body mass index [BMI] 21.0-21.9, adult
CPT/HCPCS: 36415; 71045; 80048; 80053; 81001; 84484; 85025; 87040; 87086; 87088; 87186; 93005; 96361; 96365; 97163; G0378

== ENCOUNTER 2025-03-24 08:15 | Inpatient (IN) | payer OTHER, MEDICAID ==
[~2025-03-24] VITALS: Ht 162.6 cm; Wt 63.0 kg
--- NOTE | 2025-03-24 08:32 | ECG ---
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
--- NOTE | 2025-03-24 09:09 | DVH ---
EXAM: XY CHEST PORTABLE HISTORY: sob COMPARISON: XY CHEST PORTABLE on DOS: 03/14/25, XY CHEST PORTABLE on DOS: 01/23/25, XY CHEST PORTABLE o n DOS: 01/22/25, CXR1 on DOS: 04/09/21, CHEST XRAY 1 VIEW on DOS: 04/09/21 TECHNIQUE: Portable AP view of the chest was performed. FINDINGS: No pneumothorax, consolidative infiltrates, or pulmonary edema. The heart is not enlarged. There are multiple old left rib fractures. The humeral heads are high-riding and abut the undersurfaces of the acromion, consistent with significant rotator cuff tendinopathy. IMPRESSION: No acute intrathoracic process.
[2025-03-24 09:13] LABS: Hematocrit 43.3 % (41.0-53.0); Hemoglobin 14.9 g/dL (13.5-17.5); Mean Corpuscular Hemoglobin 30.5 pg (28.0-32.0); Mean Corpuscular Volume 88.9 fL (80.0-100.0); Nucleated Red Blood Cells % 0.1 %
[2025-03-24 09:18] LABS: Chloride 105 mmol/L (98-107); Sodium 141 mmol/L (136-145)
[2025-03-24 09:19] LABS: Anion Gap 7 (5-15); Carbon Dioxide 29 mmol/L (20-31)
[2025-03-24 09:24] LABS: BUN/Creatinine Ratio 7.1 (10.0-20.0); Glucose 100 mg/dL (74-106)
[2025-03-24 09:34] LABS: Blood Urea Nitrogen 7 mg/dL (9-23); Calcium 8.6 mg/dL (8.7-10.4); Potassium 3.4 mmol/L (3.5-5.1)
--- NOTE | 2025-03-24 09:38 | ED.PDOC ---
History of Present Illness HPI Comments 80 y/o Romanian speaking M presents with c/c of dysuria and RUQ abdominal pain, that radiates to his sternal chest and throat. Additional associated symptoms of dizziness and headache. Patient is a poor historian. He endorses on urinary symptoms beginning following a recent Elena catheter placement s/p hernia repair procedure. Denies on having any current shortness of breath, nausea, vomiting, fever, chills, or further associated symptoms. Chief Complaint: Urinary Time Seen by MD: 08:20 Primary Care Provider: UNKNOWN Reviewed Notes: Nurses Notes, Medications, Allergies Allergies: Coded Allergies: NO KNOWN ALLERGIES (Unverified , 03/10/18) 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, 4 MG 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, #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 Prov:BHAVANA HORNE MD 01/29/25 Hydrocodone-Acetaminophen (Hydrocodone Bitartrate/AC 5-325 mg) 1 Tab Tab, 1 TAB PO Q8HP PRN, #10 TAB Prov:BHAVANA HORNE MD 01/29/25 Finasteride (Finasteride) 5 Mg Tab, 5 MG PO DAILY for 30 Days, #30 TAB Prov:BHAVANA HORNE MD 01/29/25 Tamsulosin Hcl (Flomax) 0.4 Mg Cap, 1 CAP PO DAILY, #90 CAP 0 Refills Prov:ANICETO LUJAN MD 04/19/21 Reported Medications Terbinafine HCl (Terbinafine Hydrochloride) 250 Mg Tab, 1 TAB PO DAILYPRN 04/04/21 Information Source: Patient Mode of Arrival: Ambulatory Severity: Moderate Duration: Since onset Prehospital treatment: None Past Medical History PAST MEDICAL HISTORY: UTI'S Surgical History: Cholecystectomy, Hernia Repair Family History Family History: Reviewed,noncontributory to illness Social History Smoker: Non-Smoker Alcohol: Denies ETOH Use Drugs: Denies Drug Use Lives In: Home All Other Systems: Reviewed and Negative (Comprehensive systems review obtained and negative except for what is stated in the HPI.) Physical Exam General Appearance: Moderate Distress HEENT: Normal ENT Inspection, Pharynx Normal, TMs Normal Neck: Full Range of Motion, Non-Tender, Normal, Normal Inspection Respiratory: Chest Non-Tender, Lungs Clear, No Accessory Muscle Use, No Respiratory Distress, Normal Breath Sounds Cardiovascular: No Edema, No JVD, No Murmur, No Gallop, Normal Peripheral Pulses, Regular Rate/Rhythm Breast Exam: Deferred Gastrointestinal: No Organomegaly, Non Tender, No Pulsatile Mass, Normal Bowel Sounds, Soft Genitalia: Deferred Pelvic: Deferred Rectal: Deferred Extremities: No calf tenderness, Normal capillary refill, Normal inspection, Normal range of motion, Non-tender, No pedal edema Musculoskeletal : Apperance: Normal Neurologic: Alert, powerhouse attendant II-XII nml as Tested, No Motor Deficits, Normal Affect, Normal Mood, No Sensory Deficits Cerebellar Function: Normal Reflexes: Normal Skin: Dry, Normal Color, Warm Peripheral Pulses: 3+ Radial (R), 3+ Radial (L) Lymphatic: No Adenopathy Was a procedure done? Was a procedure done?: No Differential Dx Considerations may include: UTI, epididymis, STI, postop complication, viral syndrome, gastritis, gastroenteritis, among others X-Ray, Labs, Meds, VS Vital Signs Date Time Temp Pulse Resp B/P (MAP) Pulse Ox O2 Delivery O2 Flow Rate FiO2 03/24/25 08:31 79 03/24/25 08:18 98.7 86 16 149/82 95 98.7 Lab Test 03/24/25 10:01 03/24/25 09:20 03/24/25 08:51 Range/Units Troponin I High Sensitivity Pending 10 </=54 ng/L Urine Color Pending Urine Clarity Pending Urine pH Pending Urine Specific [place] Pending Urine Protein Pending Urine Ketones Pending Urine Blood Pending Urine Nitrite Pending Urine Bilirubin Pending Urine Urobilinogen Pending Urine Leukocyte Esterase Pending Urine RBC Pending Urine Microscopic WBC Pending Urine Squamous Epithelial Cells Pending Urine Bacteria Pending Urine Glucose Pending White Blood Count 3.1 L 4.4-10.8 10^3/uL Red Blood Count 4.87 4.5-5.90 10^6/uL Hemoglobin 14.9 13.5-17.5 g/dL Hematocrit 43.3 41.0-53.0 % Mean Corpuscular Volume 88.9 80.0-100.0 fL Mean Corpuscular Hemoglobin 30.5 28.0-32.0 pg Mean Corpuscular Hemoglobin Concent 34.3 32.0-36.0 g/dL Red Cell Distribution Width 14.7 H 11.8-14.3 % Platelet Count 215 140-450 10^3/uL Mean Platelet Volume 8.2 6.9-10.8 fL Neutrophils (%) (Auto) 57.0 37.0-80.0 % Lymphocytes (%) (Auto) 27.9 10.0-50.0 % Monocytes (%) (Auto) 12.0 0.0-12.0 % Eosinophils (%) (Auto) 3.0 0.0-7.0 % Basophils (%) (Auto) 0.1 0.0-2.0 % Neutrophils # (Auto) 1.8 1.6-8.6 10 ^3/uL Lymphocytes # (Auto) 0.9 0.4-5.4 10 ^3/uL Monocytes # (Auto) 0.4 0-1.3 10 ^3/uL Eosinophils # (Auto) 0.1 0-0.8 10 ^3/uL Basophils # (Auto) 0 0-0.2 10 ^3/uL Nucleated Red Blood Cells 0.1 % Sodium Level 141 136-145 mmol/L Potassium Level 3.4 L 3.5-5.1 mmol/L Chloride Level 105 98-107 mmol/L Carbon Dioxide Level 29 20-31 mmol/L Anion Gap 7 5-15 Blood Urea Nitrogen 7 L 9-23 mg/dL Creatinine 0.98 0.700-1.30 mg/dL Glomerular Filtration Rate Calc 78 >90 mL/min BUN/Creatinine Ratio 7.1 L 10.0-20.0 Serum Glucose 100 74-106 mg/dL Calcium Level 8.6 L 8.7-10.4 mg/dL Current Medications Medications (Trade) Dose Ordered Sig/Tg Route Start Time Stop Time Status Last Admin Aspirin 325 mg ONCE ONCE PO 03/24/25 08:45 03/24/25 08:46 DC 03/24/25 09:50 Patient alert pain Complaining of chest pain. Has a problem with his urine. Vitals stable. Answering questions. Placed a Elena catheter. Possible prostate. Was given aspirin. He will need echocardiogram. Urology consultation. EKG reviewed does not show any acute changes. Explained to the patient. Continue monitoring. Time of 1ST Reevaluation: 09:10 Reevaluation 1ST: Unchanged Patient Education/Counseling: Diagnosis, Treatment Family Education/Counseling: No Family Present SEPSIS Sepsis Screen Date sepsis recognized/suspect: Mar 24, 2025 Time Sepsis recognized/suspect: 817 Recent Procedure: No On Antibiotic Therapy: Yes (LISINORIL) Respiratory Rate >20: No Heart Rate >90: No Temp<36 C (96.8 F) or >38.3 C: No SBP <90 or MAP <65 mmHG: No New Acute Mental Status Change: No Is the patient on CPAP, BIPAP,: No Physician Orders Chest Portable (03/24/25 08:39) Urinalysis (03/24/25 08:39) Troponin-I Hs (03/24/25 09:39) Troponin-I Hs (03/24/25 11:39) Insert Elena Catheter QSHIFT (03/24/25 08:39) Vital Signs Date Time Temp Pulse Resp B/P (MAP) Pulse Ox O2 Delivery O2 Flow Rate FiO2 03/24/25 08:31 79 03/24/25 08:18 98.7 86 16 149/82 95 98.7 Laboratory Tests Test 03/24/25 08:51 White Blood Count 3.1 10^3/uL (4.4-10.8) L Medications Medications Dose Ordered Sig/Tg Route Start Time Stop Time Status Last Admin Dose Admin Aspirin 325 mg ONCE ONCE PO 03/24/25 08:45 03/24/25 08:46 DC 03/24/25 09:50 Departure 1 Departure Time of Disposition: 10:33 Impression: Primary Impression: Chest pain of unknown etiology Additional Impressions: Suprapubic tenderness Encounter for Elena catheter removal Disposition: ADMITTED INPATIENT Admit to: Med Surg Condition: Guarded Critical Care Note Critical Care Time?: No Stability Stability form required: No Heart Score Heart Score: Heart Score Response (Comments) Value History Slightly Suspicious 0 EKG Normal 0 Age >65 2 Risk Factors >3 or Hx ASHD 2 Troponin Normal limit 0 Total 4 I personally scribed for TAMMI SÁNCHEZ MD ([email or web address]) on 03/24/25 at 09:38. Electronically submitted by Stephen Holley [email or web address]). ATMMI SÁNCHEZ MD Mar 24, 2025 09:38
[2025-03-24 10:30] LABS: Urine Budding Yeast OCCASIONAL /hpf (None Seen); Urine Protein, UAD Negative (Negative)
[2025-03-24 18:34] VITALS: PULSE 69; RESP 12; O2SAT 98
[2025-03-24] MEDS ORDERED: HYDROcodone-ACET 5/325MG TAB PO PRN (19:15)
[2025-03-24 19:30] VITALS: PULSE 74; RESP 20; O2SAT 96
[2025-03-24] MEDS: ACETAMINOPHEN 325 MG TAB PO PRN (19:45)
[2025-03-24 21:00] VITALS: BP 159/81; PULSE 75; RESP 17; TEMP 97.5; O2SAT 98
[2025-03-24 21:23] VITALS: BP 159/81; PULSE 72; PULSE 74; RESP 16; RESP 18; TEMP 97.5; O2SAT 98
[2025-03-24] MEDS ORDERED: LISI20TA56 PO (22:18)
[2025-03-24] MEDS ORDERED: OMEP20TA PO (22:18)
[2025-03-24] MEDS: MELATONIN 5 MG TAB PO ONE (23:00)
[2025-03-25] VITALS (7 sets, daily range): BP systolic 120–156; BP diastolic 67–89; PULSE 66–92; RESP 16–18; TEMP 97.6–98.3; O2SAT 96–98
--- NOTE | 2025-03-25 01:17 | DVHHP2 ---
History of Present Illness Reason for Visit: Urinary symptoms History of Present Illness 80-year-old male presents for evaluation of urinary symptoms. The patient reports having a Elean catheter inserted post hernia repair procedure. He states recently having catheter exchanged and since then he has been having urinary symptoms. He states feeling as if his bladder is not completely emptying, states having lower abdominal pain and dysuria. Reports occasional chills. Past Medical History UTI, BPH, hypertension Past Surgical History Hernia repair, cholecystectomy Family History Noncontributory Smoke: No ALCOHOL: none Drugs: None Lives: with Family Review of Systems Review of Systems Review of systems are currently negative otherwise addressed in HPI. Allergies: Coded Allergies: NO KNOWN ALLERGIES (Unverified , 03/10/18) Medications Current Medications Medications Dose Ordered Sig/Tg Route Start Time Stop Time Status Last Admin Dose Admin Ceftriaxone Sodium 50 ml @ 100 mls/hr DAILY@09 IV 03/25/25 09:00 Lisinopril 20 mg DAILY PO 03/25/25 10:00 Finasteride 5 mg DAILY PO 03/25/25 10:00 Tamsulosin HCl 0.4 mg QPM PO 03/25/25 18:00 Sertraline HCl 25 mg DAILY PO 03/25/25 10:00 Acetaminophen/ Hydrocodone Bitart 1 tab Q4HP PRN PO 03/24/25 19:15 Ondansetron HCl 4 mg Q4HP PRN IV 03/24/25 19:15 Enoxaparin Sodium 40 mg DAILY SC 03/25/25 10:00 Acetaminophen 650 mg Q6HP PRN PO 03/24/25 19:15 03/24/25 19:45 650 MG Exam Vital Signs Vital Signs Date Time Temp Pulse Resp B/P (MAP) Pulse Ox O2 Delivery O2 Flow Rate FiO2 03/25/25 01:00 97.6 68 16 124/72 (89) 98 97.6 03/24/25 19:30 Room Air* 0 21 Exam Gen: 80-year-old male in mild distress Skin: Warm, dry, normal color and texture, no rash. HEENT: Normocephalic atraumatic, mucous membranes moist and pink. Neck: Cervical and supraclavicular nodes normal without enlargement, trachea is midline, thyroid gland is normal without masses. Pulmonary: Clear to auscultation and percussion bilaterally. Cardiac: Regular rate and rhythm. No murmur Abdomen: Soft, nontender, nondistended, bowel sounds present all 4 quadrants, no guarding, no rigidity, no organomegaly. Extremities: No cyanosis, clubbing, no edema Neuro: Cranial nerves II through XII grossly intact, normal affect and speech, no focal motor deficits. Labs/Xrays ORDERING PHYSICIAN: TAMMI SÁNCHEZ MD PROCEDURE(s): CXRP - CHEST PORTABLE REASON: sob ORDER NUMBER(s): [id number], ACCESSION NUMBER(s): [id number] EXAM: XY CHEST PORTABLE HISTORY: sob COMPARISON: XY CHEST PORTABLE on DOS: 03/14/25, XY CHEST PORTABLE on DOS: 01/23/25, XY CHEST PORTABLE on DOS: 01/22/25, CXR1 on DOS: 04/09/21, CHEST XRAY 1 VIEW on DOS: 04/09/21 TECHNIQUE: Portable AP view of the chest was performed. FINDINGS: No pneumothorax, consolidative infiltrates, or pulmonary edema. The heart is not enlarged. There are multiple old left rib fractures. The humeral heads are high- riding and abut the undersurfaces of the acromion, consistent with significant rotator cuff tendinopathy. IMPRESSION: No acute intrathoracic process. Labs Test 03/24/25 10:01 03/24/25 09:20 03/24/25 08:51 Range/Units Troponin I High Sensitivity 10 </=54 ng/L Urine Color Light-yellow Yellow Urine Clarity Clear Clear Urine pH 7.0 5.0-9.0 Urine Specific [place] 1.016 1.001-1.035 Urine Protein Negative Negative Urine Ketones Negative Negative Urine Blood Negative Negative /uL Urine Nitrite Negative Negative Urine Bilirubin Negative Negative Urine Urobilinogen Normal Negative mg/dL Urine Leukocyte Esterase 3+ Negative /uL Urine RBC 3 0 - 3 /hpf Urine Microscopic WBC 134 H 0-3 /HPF Urine Squamous Epithelial Cells None seen <5 /hpf Urine Bacteria Few H None Seen /hpf Urine Mucus Few None Seen Urine Yeast (Budding) Occasional None Seen /hpf Urine Glucose Normal Normal mg/dL White Blood Count 3.1 L 4.4-10.8 10^3/uL Red Blood Count 4.87 4.5-5.90 10^6/uL Hemoglobin 14.9 13.5-17.5 g/dL Hematocrit 43.3 41.0-53.0 % Mean Corpuscular Volume 88.9 80.0-100.0 fL Mean Corpuscular Hemoglobin 30.5 28.0-32.0 pg Mean Corpuscular Hemoglobin Concent 34.3 32.0-36.0 g/dL Red Cell Distribution Width 14.7 H 11.8-14.3 % Platelet Count 215 140-450 10^3/uL Mean Platelet Volume 8.2 6.9-10.8 fL Neutrophils (%) (Auto) 57.0 37.0-80.0 % Lymphocytes (%) (Auto) 27.9 10.0-50.0 % Monocytes (%) (Auto) 12.0 0.0-12.0 % Eosinophils (%) (Auto) 3.0 0.0-7.0 % Basophils (%) (Auto) 0.1 0.0-2.0 % Neutrophils # (Auto) 1.8 1.6-8.6 10 ^3/uL Lymphocytes # (Auto) 0.9 0.4-5.4 10 ^3/uL Monocytes # (Auto) 0.4 0-1.3 10 ^3/uL Eosinophils # (Auto) 0.1 0-0.8 10 ^3/uL Basophils # (Auto) 0 0-0.2 10 ^3/uL Nucleated Red Blood Cells 0.1 % Sodium Level 141 136-145 mmol/L Potassium Level 3.4 L 3.5-5.1 mmol/L Chloride Level 105 98-107 mmol/L Carbon Dioxide Level 29 20-31 mmol/L Anion Gap 7 5-15 Blood Urea Nitrogen 7 L 9-23 mg/dL Creatinine 0.98 0.700-1.30 mg/dL Glomerular Filtration Rate Calc 78 >90 mL/min BUN/Creatinine Ratio 7.1 L 10.0-20.0 Serum Glucose 100 74-106 mg/dL Calcium Level 8.6 L 8.7-10.4 mg/dL SEPSIS Sepsis Screen Date sepsis recognized/suspect: Mar 24, 2025 Time Sepsis recognized/suspect: 1929 Recent Procedure: No On Antibiotic Therapy: No Respiratory Rate >20: No Heart Rate >90: No Temp<36 C (96.8 F) or >38.3 C: No SBP <90 or MAP <65 mmHG: No New Acute Mental Status Change: No Is the patient on CPAP, BIPAP,: No Physician Orders Ceftriaxone 1gm/50ml D5w (Rocephin) (03/25/25 09:00) Urine Bacterial Culture (03/24/25 19:09) Lisinopril Tablet (Zestril Tablet) (03/25/25 10:00) Finasteride Tablet (Proscar Tablet) (03/25/25 10:00) Tamsulosin Hydrochloride (Flomax) (03/25/25 18:00) Sertraline Hcl (Zoloft) (03/25/25 10:00) Basic Metabolic Panel (03/25/25 04:00) Admit (03/24/25 19:09) Hydrocodone-Acet 5/325mg Tab ([place] 5/32 (03/24/25 19:15) Ondansetron Hcl (Zofran) (03/24/25 19:15) Enoxaparin Sodium (Lovenox) (03/25/25 10:00) Complete Blood Count (03/25/25 04:00) Cardiac Diet-2gna,Lofat,Lochol (03/25/25 Breakfast) Condition: Stable (03/24/25 19:09) Acetaminophen Tablet (Tylenol Tablet) (03/24/25 19:15) Bedrest With Bathroom Privileg (03/24/25 19:09) Mrsa Screen (03/24/25 22:15) Vital Signs Date Time Temp Pulse Resp B/P (MAP) Pulse Ox O2 Delivery O2 Flow Rate FiO2 03/25/25 01:00 97.6 68 16 124/72 (89) 98 97.6 03/24/25 21:23 97.5 74 18 159/81 (107) 98 97.5 03/24/25 21:00 97.5 75 17 159/81 (107) 98 97.5 03/24/25 20:00 71 03/24/25 19:30 74 20 96 Room Air* 0 21 03/24/25 19:00 98.1 78 20 132/73 (92) 96 98.1 03/24/25 18:34 98.1 78 12 143/66 (91) 98 98.1 03/24/25 18:34 69 12 98 Room Air* 0 21 Medications Medications Dose Ordered Sig/Tg Route Start Time Stop Time Status Last Admin Dose Admin Acetaminophen 650 mg Q6HP PRN PO 03/24/25 19:15 03/24/25 19:45 650 MG Ceftriaxone Sodium 50 ml @ 100 mls/hr ONCE ONCE IV 03/24/25 19:15 03/24/25 19:44 DC 03/24/25 19:45 100 MLS/HR Melatonin 10 mg ONCE ONCE PO 03/24/25 23:00 03/24/25 23:01 DC 03/24/25 23:00 10 MG Assessment/Plan Assessment/Plan Assessment Complicated UTI Hypertension BPH Plan Admit the patient to [facility] to the hospitalist Urology consultation for Elena catheter exchange Rocephin Urine bacterial culture pending Resume home medications Continue treatment per orders. Plan discussed with: Patient My Orders Orders - VICTOR MANUEL HOOKER Procedure Category Date Status Time Ceftriaxone 1gm/50ml PHA 03/25/25 In Process D5w (Rocephin) 09:00 Urine Bacterial SONIA 03/24/25 In Process Culture 19:09 Lisinopril Tablet PHA 03/25/25 In Process (Zestril Tablet) 10:00 Finasteride Tablet PHA 03/25/25 In Process (Proscar Tablet) 10:00 Tamsulosin PHA 03/25/25 In Process Hydrochloride (Flomax) 18:00 Sertraline Hcl PHA 03/25/25 In Process (Zoloft) 10:00 Basic Metabolic Panel LAB 03/25/25 Logged 04:00 Admit ADMIT 03/24/25 Transmitted 19:09 Hydrocodone-Acet PHA 03/24/25 In Process 5/325mg Tab ([place] 19:15 Ondansetron Hcl PHA 03/24/25 In Process (Zofran) 19:15 Enoxaparin Sodium PHA 03/25/25 In Process (Lovenox) 10:00 Complete Blood Count LAB 03/25/25 Logged 04:00 Cardiac DIET 03/25/25 Transmitted Diet-2gna,Lofat,Lochol Breakfast Condition: Stable YEN 03/24/25 In Process 19:09 Acetaminophen Tablet PHA 03/24/25 In Process (Tylenol Tablet) 19:15 Bedrest With Bathroom YEN 03/24/25 In Process Privileg 19:09 Mrsa Screen SONIA 03/24/25 In Process 22:15 Date of Service: Mar 25, 2025 Billing Provider: VICTOR MANUEL HOOKER Common Visit Codes: [id number] INP/OBS CARE (MOD) VICTOR MANUEL HOOKER Mar 25, 2025 01:17
[2025-03-25 06:43] LABS: Hematocrit 38.7 % (41.0-53.0); Hemoglobin 13.5 g/dL (13.5-17.5); Mean Corpuscular Hemoglobin 31.0 pg (28.0-32.0); Mean Corpuscular Volume 89.1 fL (80.0-100.0); Nucleated Red Blood Cells % 0.2 %
[2025-03-25 06:54] LABS: Chloride 106 mmol/L (98-107); Sodium 143 mmol/L (136-145)
[2025-03-25 06:55] LABS: Anion Gap 7 (5-15); Carbon Dioxide 30 mmol/L (20-31); Potassium 3.5 mmol/L (3.5-5.1)
[2025-03-25 06:56] LABS: Calcium 8.3 mg/dL (8.7-10.4)
[2025-03-25 07:00] LABS: BUN/Creatinine Ratio 12.0 (10.0-20.0); Blood Urea Nitrogen 12 mg/dL (9-23); Glucose 103 mg/dL (74-106)
[2025-03-25] MEDS: FINASTERIDE 5 MG TAB PO SCH (10:04)
[2025-03-25] MEDS: SERTRALINE HCL 50 MG TAB PO SCH (10:04)
[2025-03-25] MEDS: LISINOPRIL 20 MG TAB PO SCH (10:05)
[2025-03-25] MEDS: ENOXAPARIN SOD 40 MG/0.4 ML SYRINGE SC SCH (10:08)
[2025-03-25] MEDS: ONDANSETRON HCL 4 MG/2 ML VIAL IV PRN (10:20)
--- NOTE | 2025-03-25 17:24 | DVHDS2 ---
Discharge Summary Date of Admission Mar 24, 2025 at 19:09 Date of Discharge: Mar 25, 2025 Admitting Diagnosis hinton catheter issue Labs/Diagnostic Data: Laboratory Results Test 03/25/25 05:51 03/24/25 10:01 03/24/25 09:20 White Blood Count 3.6 10^3/uL (4.4-10.8) Red Blood Count 4.34 10^6/uL (4.5-5.90) Hemoglobin 13.5 g/dL (13.5-17.5) Hematocrit 38.7 % (41.0-53.0) Mean Corpuscular Volume 89.1 fL (80.0-100.0) Mean Corpuscular Hemoglobin 31.0 pg (28.0-32.0) Mean Corpuscular Hemoglobin Concent 34.8 g/dL (32.0-36.0) Red Cell Distribution Width 14.7 % (11.8-14.3) Platelet Count 192 10^3/uL (140-450) Mean Platelet Volume 8.7 fL (6.9-10.8) Neutrophils (%) (Auto) 65.3 % (37.0-80.0) Lymphocytes (%) (Auto) 18.7 % (10.0-50.0) Monocytes (%) (Auto) 11.0 % (0.0-12.0) Eosinophils (%) (Auto) 4.7 % (0.0-7.0) Basophils (%) (Auto) 0.3 % (0.0-2.0) Neutrophils # (Auto) 2.3 10 ^3/uL (1.6-8.6) Lymphocytes # (Auto) 0.7 10 ^3/uL (0.4-5.4) Monocytes # (Auto) 0.4 10 ^3/uL (0-1.3) Eosinophils # (Auto) 0.2 10 ^3/uL (0-0.8) Basophils # (Auto) 0 10 ^3/uL (0-0.2) Nucleated Red Blood Cells 0.2 % Sodium Level 143 mmol/L (136-145) Potassium Level 3.5 mmol/L (3.5-5.1) Chloride Level 106 mmol/L (98-107) Carbon Dioxide Level 30 mmol/L (20-31) Anion Gap 7 (5-15) Blood Urea Nitrogen 12 mg/dL (9-23) Creatinine 1.00 mg/dL (0.700-1.30) Glomerular Filtration Rate Calc 76 mL/min (>90) BUN/Creatinine Ratio 12.0 (10.0-20.0) Serum Glucose 103 mg/dL (74-106) Calcium Level 8.3 mg/dL (8.7-10.4) Troponin I High Sensitivity 10 ng/L (</=54) Urine Color Light-yellow (Yellow) Urine Clarity Clear (Clear) Urine pH 7.0 (5.0-9.0) Urine Specific [place] 1.016 (1.001-1.035) Urine Protein Negative (Negative) Urine Ketones Negative (Negative) Urine Blood Negative /uL (Negative) Urine Nitrite Negative (Negative) Urine Bilirubin Negative (Negative) Urine Urobilinogen Normal mg/dL (Negative) Urine Leukocyte Esterase 3+ /uL (Negative) Urine RBC 3 /hpf (0 - 3) Urine Microscopic WBC 134 /HPF (0-3) Urine Squamous Epithelial Cells None seen /hpf (<5) Urine Bacteria Few /hpf (None Seen) Urine Mucus Few (None Seen) Urine Yeast (Budding) Occasional /hpf (None Urine Glucose Normal mg/dL (Normal) Other Laboratory Tests 03/25/25 05:51 Brief Hx & Hospital Course: 80-year-old male presents for evaluation of urinary symptoms. The patient reports having a Hinton catheter inserted post hernia repair procedure.He states recently having catheter exchanged and since then he has been having urinary symptoms. admitted for evaluation. urulogy consulted. was ordered for exchange of hinton catheter with nursing (per our urologist). hinton exchanged successfully. patient no longer with pain or discomfort. to follow up with outpatient urology Consults/Reason for consult Urology Condition at Discharge: Good Final Diagnosis/Problems List hinton catheter exchange Discharge Disposition: Home SNF Discharge Will this Physician continue t: No Discharge Instruct/Medications Diet: Regular Activity: No Restrictions, As Tolerated Scheduled Amoxicillin & Pot Clavulanate (Augmentin Tablet), 875 MG PO BID Finasteride (Finasteride), 5 MG PO DAILY Levofloxacin Hemihydrate (Levaquin 500 Mg), 1 TAB PO DAILY Lisinopril (Lisinopril), 20 MG PO DAILY, (Reported) Naloxone HCl (Narcan), 4 MG NA DRAPERY HEAD FORMER Omeprazole (Gnp Omeprazole), 20 MG PO DAILY, (Reported) Tamsulosin Hcl (Flomax), 1 CAP PO DAILY Terbinafine HCl (Terbinafine Hydrochloride), 1 TAB PO DAILYPRN, (Reported) Scheduled PRN Acetaminophen (Acetaminophen), 500 MG PO Q4HP PRN Hydrocodone-Acetaminophen (Hydrocodone Bitartrate/AC 5-325 mg), 1 TAB PO Q8HP PRN Ondansetron Odt 4MG Tab (Zofran Po), 4 MG PO Q6HP PRN Discharge Statement: "Patient was advised to return to the ER or call 911 if any headaches, dizziness, shortness of breath, chest pain, abdominal pain, bleeding, fevers, or worsening of medical condition. Patient was counseled about treatment plan, medications, possible side effects, patientverbalized understanding. All questions were answered to the best of my ability. This discharge took greater then 30 minutes in planning, reviewing documentation, counseling the patient, and discussing with other team members." ASSESSMENT ASSESSMENT Assessment hinton catheter exchange Date of Service: Mar 25, 2025 Billing Provider: KASEY SINCLAIR MD Common Visit Codes: [id number] DISCH DAY >30min KASEY SINCLAIR MD Mar 25, 2025 17:24
[2025-03-25] MEDS ORDERED: TAMSULOSIN HYDROCHLORIDE 0.4 MG CAP PO SCH (18:00)
== END 2025-03-25 17:26 | disposition home or self-care (01) | DRG 690 ==
LOC: ER 08:15 → OVERFLOW 19:09 → WEST WING 21:22
PROVIDERS: ADMIT Internal Medicine; ATTEND Internal Medicine
DX: N39.0 Urinary tract infection, site not specified (principal); I10 Essential (primary) hypertension; Z90.49 Acquired absence of other specified parts of digestive tract; N40.1 Benign prostatic hyperplasia with lower urinary tract symptoms
CPT/HCPCS: 36415; 71045; 80048; 81001; 84484; 85025; 87081; 87086; 87088; 93005; 96365; G0378; J2405

== ENCOUNTER 2025-04-17 21:49 | Inpatient (IN) | payer OTHER, MEDICAID ==
[~2025-04-17] VITALS: Ht 160 cm; Wt 59.0 kg
[~2025-04-17 21:49] MED LIST changes: -AUG875T PO; -LEVO500T91 PO; +LISI20TA56 PO; +OMEP20TA PO; -TERB250T86 PO
[2025-04-17] MEDS: ONDANSETRON HCL 4 MG/2 ML VIAL IV ONE (22:00)
[2025-04-17] MEDS: SODIUM CHLORIDE 0.9% 1,000 ML IV ONE ×2 (22:00→23:32)
[2025-04-17] MEDS: fentaNYL CITRATE 100 MCG/2 ML VL IV ONE (22:00)
--- NOTE | 2025-04-17 22:10 | ED.PDOC ---
GI ASSESSMENT HPI Comments 80-year-old male who came to ER via EMS for abdominal pain. Patient has history of hypertension, prostate cancer, recurrent UTIs, status post prostatectomy with indwelling Elena catheter. Last bowel movement was 2 days ago. For the past few hours, patient has been complaining of diffuse abdominal pain, nausea and 1 episode of vomiting. Patient also complaining of chest discomfort. Upon arrival paramedics patient noted to be hypotensive and tachycardic, blood pressure 86/53 mm Hg REVIEW OF SYSTEMS: General: No fever, no chills, or fatigue HEENT: No sore throat, no earache, no congestion, no neck pain. Cardiac: No chest pain. No palpitations. Lungs: No shortness of breath, no cough. GI: (+) nausea, (+) vomiting, no diarrhea, no constipation, (+) abdominal pain : No dysuria, frequency, or urgency. No hematuria. Musculoskeletal: No joint pain , no joint swelling, no extremity edema. Skin: No rash, no itching. Neuro: No headache, no dizziness, no weakness EXAM: General: Awake, alert and oriented. No acute distress. Skin: Skin in warm, dry and intact. Appropriate color for ethnicity. HEENT: The head is normocephalic and atraumatic. Conjunctivae are clear without exudates or hemorrhage. Sclera is non-icteric. EOM are intact. No signs of nystagmus. Eyelids are normal in appearance without swelling or lesions. Oral mucosa is pink and moist Neck: The neck is supple with normal range of motion. No JVD. Cardiac: Heart rate and rhythm are normal. No murmurs, gallops, or rubs are auscultated. Respiratory: No signs of respiratory distress. Lung sounds are clear in all lobes bilaterally without rales, rhonchi, or wheezes. Abdominal: Abdomen is soft, generally-tender without distention. Bowel sounds are present and normoactive in all four quadrants. Extremities: Upper and lower extremities are atraumatic in appearance without deformity or edema. Neurological: The patient is awake, alert and oriented to person, place, and time with normal speech. Speech is clear. There is no facial asymmetry. Psychiatric: Appropriate mood and affect. Good judgement and insight Chief Complaint: Abdominal Pain Time Seen by MD: 22:08 Primary Care Provider: UNKNOWN Reviewed Notes: Senior [employer] Notes Allergies: Coded Allergies: NO KNOWN ALLERGIES (Unverified , 03/10/18) Home Meds Active Scripts Ondansetron Odt 4MG Tab (ZOFRAN PO) 4 Mg Tb, 4 MG PO Q6HP PRN, #20 TAB ODT TAB-DISSOLVE IN MOUTH, THEN SWALLOW Prov:MARLEN VENEGAS PAC 03/14/25 Acetaminophen (Acetaminophen) 500 Mg Tab, 500 MG PO Q4HP PRN, #30 TAB Prov:MARLEN VENEGAS PAC 03/14/25 Naloxone HCl (Narcan) 4 Mg/0.1 Ml Spr, 4 MG NA MATERIAL STRESS TESTER, #2 SPRAY Prov:BHAVANA HORNE MD 01/29/25 Hydrocodone-Acetaminophen (Hydrocodone Bitartrate/AC 5-325 mg) 1 Tab Tab, 1 TAB PO Q8HP PRN, #10 TAB Prov:BHAVANA HORNE MD 01/29/25 Finasteride (Finasteride) 5 Mg Tab, 5 MG PO DAILY for 30 Days, #30 TAB Prov:BHAVANA HORNE MD 01/29/25 Tamsulosin Hcl (Flomax) 0.4 Mg Cap, 1 CAP PO DAILY, #90 CAP 0 Refills Prov:ANICETO LUJAN MD 04/19/21 Reported Medications Omeprazole (Gnp Omeprazole) 20 Mg Tab, 20 MG PO DAILY, TAB 03/24/25 Lisinopril (Lisinopril) 20 Mg Tab, 20 MG PO DAILY for 30 Days, MG 03/24/25 Information Source: Patient, Emergency Med Personnel Mode of Arrival: EMS Past Medical History PAST MEDICAL HISTORY: Cancer (Prostate), HTN, UTI'S Past Medical History (Other): Indwelling Elena catheter Surgical History: Cholecystectomy, Hernia Repair Surgical History (Other): Prostatectomy Family History Family History: Reviewed,noncontributory to illness Social History Smoker: Non-Smoker Alcohol: Denies ETOH Use Drugs: Denies Drug Use Lives In: Home Was a procedure done? Was a procedure done?: No GI differential Dx Differential Diagnosis: Bowel Obstruction, Constipation, Diverticular disease, Gastritis/PUD, Gastroenteritis, Hernia, Pancreatitis, Other (Differential diagnoses considered include: Abdominal aortic aneurysm, NH, esophageal rupture, intestinal obstruction, mesenteric ischemia, perforated viscus or solid organ rupture, CHF with hepatomegaly, pneumonia, abscess, appendicitis, biliary disease, diverticulitis, gastritis, gastroenteritis, hepatitis, hernia, inflamm atory bowel disease, pancreatitis, peptic ulcer disease, urinary tract infection, ureteral colic, constipation, GERD, irritable syndrome, abdominal wall pain, nonspecific abdominal pain, herpes zoster, nephrolithiasis.) X-Ray, Labs, Meds, VS Vital Signs Date Time Temp Pulse Resp B/P (MAP) Pulse Ox O2 Delivery O2 Flow Rate FiO2 04/17/25 23:44 100.4 98 16 95/64 (74) 95 100.4 04/17/25 21:51 97 04/17/25 21:50 98.5 100 17 98/62 97 98.5 Lab Test 04/17/25 22:51 04/17/25 22:15 04/17/25 21:58 Range/Units Troponin I High Sensitivity 19 14 </=54 ng/L White Blood Count 12.6 H 4.4-10.8 10^3/uL Red Blood Count 4.39 L 4.5-5.90 10^6/uL Hemoglobin 13.3 L 13.5-17.5 g/dL Hematocrit 39.0 L 41.0-53.0 % Mean Corpuscular Volume 89.0 80.0-100.0 fL Mean Corpuscular Hemoglobin 30.3 28.0-32.0 pg Mean Corpuscular Hemoglobin Concent 34.0 32.0-36.0 g/dL Red Cell Distribution Width 14.5 H 11.8-14.3 % Platelet Count 156 140-450 10^3/uL Mean Platelet Volume 8.5 6.9-10.8 fL Neutrophils (%) (Auto) 91.2 H 37.0-80.0 % Lymphocytes (%) (Auto) 2.7 L 10.0-50.0 % Monocytes (%) (Auto) 6.0 0.0-12.0 % Eosinophils (%) (Auto) 0.0 0.0-7.0 % Basophils (%) (Auto) 0.1 0.0-2.0 % Neutrophils # (Auto) 11.5 H 1.6-8.6 10 ^3/uL Lymphocytes # (Auto) 0.3 L 0.4-5.4 10 ^3/uL Monocytes # (Auto) 0.8 0-1.3 10 ^3/uL Eosinophils # (Auto) 0 0-0.8 10 ^3/uL Basophils # (Auto) 0 0-0.2 10 ^3/uL Nucleated Red Blood Cells 0.0 % Sodium Level 140 136-145 mmol/L Potassium Level 3.3 L 3.5-5.1 mmol/L Chloride Level 106 98-107 mmol/L Carbon Dioxide Level 26 20-31 mmol/L Anion Gap 8 5-15 Blood Urea Nitrogen 12 9-23 mg/dL Creatinine 0.94 0.700-1.30 mg/dL Glomerular Filtration Rate Calc 82 >90 mL/min BUN/Creatinine Ratio 12.8 10.0-20.0 Serum Glucose 158 H 74-106 mg/dL Lactic Acid Level 1.6 0.4-2.0 mmol/L Calcium Level 8.0 L 8.7-10.4 mg/dL Total Bilirubin 1.1 H 0.2-1.0 mg/dL Aspartate Amino Transferase (AST) 15 13-40 U/L Alanine Aminotransferase (ALT) 16 7-40 U/L Alkaline Phosphatase 61 46-116 U/L Total Protein 5.6 L 5.7-8.2 g/dL Albumin 3.3 3.2-4.8 g/dL Urine Color Light-yellow Yellow Urine Clarity Turbid H Clear Urine pH 6.5 5.0-9.[address] 1.017 1.001-1.035 Urine Protein Trace H Negative Urine Ketones Negative Negative Urine Blood Trace H Negative /uL Urine Nitrite Negative Negative Urine Bilirubin Negative Negative Urine Urobilinogen Normal Negative mg/dL Urine Leukocyte Esterase 3+ Negative /uL Urine RBC 3 0 - 3 /hpf Urine Microscopic WBC 40 H 0-3 /HPF Urine Squamous Epithelial Cells None seen <5 /hpf Urine Bacteria Few H None Seen /hpf Urine Mucus Few None Seen Urine Glucose Normal Normal mg/dL Current Medications Medications (Trade) Dose Ordered Sig/Tg Route Start Time Stop Time Status Last Admin Sodium Chloride 1,000 ml @ 1,000 mls/hr Q1H ONCE IV 04/17/25 22:00 04/17/25 22:59 DC 04/17/25 23:32 Time of 1ST Reevaluation: 22:05 Reevaluation 1ST: Unchanged Patient Education/Counseling: Need For Follow Up Family Education/Counseling: No Family Present SEPSIS Sepsis Screen Date sepsis recognized/suspect: Apr 17, 2025 Time Sepsis recognized/suspect: 2149 Recent Procedure: No On Antibiotic Therapy: No Respiratory Rate >20: No Heart Rate >90: Yes Temp<36 C (96.8 F) or >38.3 C: No SBP <90 or MAP <65 mmHG: No New Acute Mental Status Change: No Is the patient on CPAP, BIPAP,: No Physician Orders Electrocardigram (04/17/25 21:57) Sodium Chloride 0.9% (04/17/25 22:00) Vital Signs Q1HR (04/17/25 21:58) Saline Lock (04/17/25 21:58) Verification Lead (04/17/25 ) Rectal/Core Temps Only (04/17/25 21:58) Notify Md If Abnormal Vs (04/17/25 21:58) Blood Culture (04/17/25 21:58) Chest Xray 1 View (04/17/25 21:58) Ct Ab Pel Wo Con-No Oral Or Iv (04/17/25 21:58) Troponin-I Hs (04/18/25 00:58) Ceftriaxone Ivpb Rocephin (04/18/25 00:30) Vancomycin (04/18/25 00:30) Vital Signs Date Time Temp Pulse Resp B/P (MAP) Pulse Ox O2 Delivery O2 Flow Rate FiO2 04/17/25 23:44 100.4 98 16 95/64 (74) 95 100.4 04/17/25 21:51 97 04/17/25 21:50 98.5 100 17 98/62 97 98.5 Laboratory Tests Test 04/17/25 22:15 Lactic Acid Level 1.6 mmol/L (0.4-2.0) White Blood Count 12.6 10^3/uL (4.4-10.8) H Medications Medications Dose Ordered Sig/Tg Route Start Time Stop Time Status Last Admin Dose Admin Sodium Chloride 1,000 ml @ 1,000 mls/hr Q1H ONCE IV 04/17/25 22:00 04/17/25 22:59 DC 04/17/25 23:32 Departure 1 Departure Time of Disposition: 00:22 Impression: Primary Impression: Urinary tract infection Additional Impression: Acute abdominal pain Disposition: ADMITTED INPATIENT Condition: Stable Comments Patient is stabilized in the ED Antibiotics initiated Patient admitted to hospitalist service for further treatment, evaluation and monitoring. Extensive evaluation was performed in attempt to identify or rule out: (See differential diagnosis section) The following tests were ordered, and results were reviewed by me and discussed with patient: (See diagnostic results section) I reviewed and agreed with the following test results read by other providers: CT abdomen and pelvis, chest x-ray Additional information was gathered from interviewing the following independent historians: EMS personnel Discussion of management or test interpretation with external physician/other qualified health patient care nursing assistant: N/A Decision regarding hospitalization or escalation of hospital level of care: Risk and benefits of admission for further treatment of patient's condition was considered. Due to patient's current clinical condition, high risk of decline and poor outcome if discharged and need for further inpatient management and mon itoring, patient will be admitted to the hospital. Discussed with patient. Critical Care Note Critical Care Time?: No Stability Stability form required: No Heart Score Heart Score: Heart Score Response (Comments) Value History N/A 0 EKG N/A 0 Age N/A 0 Risk Factors N/A 0 Troponin N/A 0 Total 0 I personally scribed for TATE TRUJILLO MD ([email or web address]) on 04/17/25 at 22:10. Electronically submitted by Felix Yepez ([email or web address]). TATE TRUJILLO MD Apr 17, 2025 22:10
[2025-04-17 22:29] LABS: Hematocrit 39.0 % (41.0-53.0); Hemoglobin 13.3 g/dL (13.5-17.5); Mean Corpuscular Hemoglobin 30.3 pg (28.0-32.0); Mean Corpuscular Volume 89.0 fL (80.0-100.0); Nucleated Red Blood Cells % 0.0 %
[2025-04-17 22:53] LABS: Alanine Aminotransferase 16 U/L (7-40); Albumin 3.3 g/dL (3.2-4.8); Alkaline Phosphatase 61 U/L (46-116); Anion Gap 8 (5-15); BUN/Creatinine Ratio 12.8 (10.0-20.0); Blood Urea Nitrogen 12 mg/dL (9-23); Carbon Dioxide 26 mmol/L (20-31); Chloride 106 mmol/L (98-107); Sodium 140 mmol/L (136-145)
--- NOTE | 2025-04-17 22:53 | DVH ---
CHEST RADIOGRAPH Indication: Suspected Sepsis Technique: Single frontal view of the chest was obtained COMPARISON: XY CHEST PORTABLE on DOS: 03/24/25, XY CHEST PORTABLE on DOS: 03/14/25, XY CHEST PORTABLE o n DOS: 01/23/25, XY CHEST PORTABLE on DOS: 01/22/25, CXR1 on DOS: 04/09/21 FINDINGS: Lines and Tubes: None Lungs: Clear Pleura: No effusion. No pneumothorax. Cardiomediastinal contours: Unremarkable Bones: Unremarkable IMPRESSION: 1. No acute disease.
[2025-04-17 22:54] LABS: Bilirubin, Total 1.1 mg/dL (0.2-1.0)
--- NOTE | 2025-04-17 22:55 | DVH ---
Exam: CT CT AB PEL WO CON-NO ORAL OR IV History: Generalized abdominal pain, constipation Comparison Study: CT CT AB PEL WO CON-NO ORAL OR IV on DOS: 01/22/25, CT CT AB PEL WITH IV CON ONLY on DOS: 03/23/24, CT CT AB PEL WO CON-NO ORAL OR IV on DOS: 10/10/22, CT ABD PELVIS WO CONTRAST on DOS: 1 , GIWAG on DOS: 04/12/21 Technique: Multidetector spiral CT of the abdomen was performed from lung bases to pubic symphysis. I maging was performed without IV contrast. Axial, coronal and sagittal multiplanar reformats were obta ined from the axial data set by the technologist. Radiation dose : 1. Abdomen/Pelvis: CTDIvol 5.19 mGy, DLP 317.66 mGy*cm. Findings: Evaluation of solid organs is limited due to lack of intravenous contrast use. Lung Bases: No acute or significant lung base finding. Normal heart size. No pleural or pericardial effusion. Liver: The liver is normal in size. No focal lesions. Gallbladder and biliary Tree: Gallbladder is surgically absent. Spleen: Unremarkable Pancreas: The pancreas is grossly normal in appearance. Adrenal Glands: Unremarkable Kidneys: Kidneys are grossly normal without calculi or hydronephrosis. Bladder: Elena catheter. Bowel: Moderate volume of stool throughout the colon. Ascites: Absent Lymphadenopathy: No mesenteric, retroperitoneal or periportal lymphadenopathy. Abdominal wall and Mesentery: Unremarkable. Vasculature: The visualized abdominal aorta is normal in size and caliber. Evaluation of abdominal a nd pelvic vessels is limited due to lack of intravenous contrast. Pelvic Organs: Masterplan is enlarged. Musculoskeletal: No aggressive focal bony lesions, acute fractures or dislocation. IMPRESSION: 1. No acute abdominal or pelvic findings. 2. Moderate volume of stool throughout the colon Radiation optimization: All CT scans at this facility use at least one of these dose optimization darby hniques: automated exposure control mA and/or kV adjustment per patient size (includes targeted exam s where dose is matched to clinical indication) or iterative reconstruction.
[2025-04-17 23:01] LABS: Calcium 8.0 mg/dL (8.7-10.4); Glucose 158 mg/dL (74-106); Potassium 3.3 mmol/L (3.5-5.1); Total Protein 5.6 g/dL (5.7-8.2)
[2025-04-17 23:05] LABS: Urine Protein, UAD TRACE (Negative)
[2025-04-18] MEDS ORDERED: ONDANSETRON HCL 4 MG/2 ML VIAL IV PRN (00:45)
[2025-04-18] MEDS: POTASSIUM CHL 20MEQ/100ML 100 ML IV ONE (01:00)
[2025-04-18] MEDS: CALCIUM GLUC 1,000mg/50ml-NS 50 ML IV ONE (01:00)
[2025-04-18 01:52] VITALS: PULSE 68; RESP 18; O2SAT 97
[2025-04-18] MEDS: VANCOMYCIN 1GM/250ML KIT 250 ML IV ONE (02:23)
[2025-04-18] MEDS: PANTOPRAZOLE 40 MG/10 ML VIAL INJ IV ONE (02:23)
[2025-04-18] MEDS ORDERED: NITROGLYCERIN 0.4 MG SL TAB SL PRN (03:30)
[2025-04-18] MEDS ORDERED: MORPHINE SULFATE INJ 2 MG/ml SYRG IV PRN (03:30)
--- NOTE | 2025-04-18 03:58 | DVHHP2 ---
History of Present Illness Reason for Visit: Acute abdominal pain History of Present Illness The patient is a 80-year-old male with past medical history of prostate cancer, hypertension, UTIs and indwelling catheter who presented to [facility] ED with complaint of abdominal pain. Patient reports he has been experiencing diffuse abdominal pain, unable to have bowel movement for the past 2 days, associated with nausea, and episode of vomiting. Patient was seen and evaluated in the ED, laboratory data shows WBC 12.6, platelets 156, sodium 140, potassium 3.3, BUN 12, creatinine 0.94, glucose 158, calcium 8.0, total bilirubin 1.1, protein 5.6, troponin 10, blood pressure 95/64, heart rate 98, temperature 100.4 F, O2 saturation 96% on room air. Urinalysis positive for urinary tract infection. Abdomen/pelvis CT showed no acute abdominal or pelvic findings; moderate volume of stool throughout the colon. Patient was started on IV antibiotic regimen Rocephin, please see medication orders section in the computer. On my assessment, patient denied chest pain, no headache, no dizziness, no diaphoresis, no diarrhea, no nausea or vomiting at this moment, no fever, no chills. Patient was admitted for further evaluation and medical management. Past Medical History Cancer (Prostate), HTN, UTI'S, Indwelling Elena catheter Past Surgical History Cholecystectomy, Hernia Repair, Prostatectomy Family History Reviewed, noncontributory to the management of this case. Past Social History The patient lives at home, denies smoking, alcohol or illicit drugs abuse. Review of Systems Constitutional: Yes: Weakness; No: Fever, Chills, Sweats, Malaise, Other Eyes: No: Pain, Vision change, Conjunctivae inflammation, Eyelid inflammation, Other, Redness ENT: No: Ear pain, Ear discharge, Nose pain, Nose discharge, Nose congestion, Mouth pain, Mouth swelling, Throat pain, Throat swelling, Other Respiratory: No: Cough, Dry, Shortness of breath, SOB with excertion, Wheezing, Hemoptysis, Pleuritic Pain, Sputum, Wheezing, Other Cardiovascular: No: Chest Pain, Palpitations, Orthopnea, Paroxysmal Noc. Dyspnea, Edema, Lt Headedness, Other Gastrointestinal: Nausea, Vomiting, Abdominal Pain, Constipation; No: Diarrhea, Melena, Hematochezia, Other Genitourinary: No Dysuria, No Frequency, No Incontinence, No Hematuria, No Retention, No Other Musculoskeletal: No: other, neck pain, shoulder pain, arm pain, back pain, hand pain, leg pain, foot pain Skin: No: Rash, Lesions, Jaundice, Bruising, Other Neurological: No: Weakness, Numbness, Incoordination, Change in speech, Confusion, Seizures, Other Allergies: Coded Allergies: NO KNOWN ALLERGIES (Unverified , 03/10/18) Medications Current Medications Medications Dose Ordered Sig/Tg Route Start Time Stop Time Status Last Admin Dose Admin Ceftriaxone Sodium 50 ml @ 100 mls/hr DAILY@0100 IV 04/19/25 01:00 Tamsulosin HCl 0.4 mg QPM PO 04/18/25 18:00 Sodium Chloride 10 ml Q8HR IV 04/18/25 06:00 Acetaminophen/ Hydrocodone Bitart 1 tab Q4HP PRN PO 04/18/25 00:45 Ondansetron HCl 4 mg Q4HP PRN IV 04/18/25 00:45 Docusate Sodium 100 mg BIDPRN PRN PO 04/18/25 00:45 Acetaminophen 650 mg Q6HP PRN PO 04/18/25 00:45 Pantoprazole Sodium 40 mg DAILY IV 04/18/25 10:00 Exam Vital Signs Vital Signs Date Time Temp Pulse Resp B/P (MAP) Pulse Ox O2 Delivery O2 Flow Rate FiO2 04/18/25 03:13 108/56 (73) 04/18/25 01:52 98.1 78 18 97 98.1 04/18/25 01:52 Room Air* 0 21 General Appearance: Alert, Oriented X3, Cooperative, No acute distress HEENT: Atraumatic, PERRLA, EOMI, Mucous membr. moist/pink Respiratory: Normal air movement Cardiovascular: Regular rate, Normal S1, Normal S2, No murmurs Abdominal: Normal bowel sounds, Soft, No tenderness, No hepatospenomegaly, No masses Extremities: No clubbing, No cyanosis, No edema, Normal pulses, No tenderness/swelling Skin: No rashes, No significant lesion Neuro: Normal speech, Normal tone, Sensation intact, Cranial nerves 3-12 NL, Reflexes 2+, Other (Generalized weakness) Psych/Mental Status: Mental status NL, Mood NL Labs/Xrays Labs Test 04/17/25 22:51 04/17/25 22:04/17/25 21:58 Range/Units Troponin I High Sensitivity 19 </=54 ng/L White Blood Count 12.6 H 4.4-10.8 10^3/uL Red Blood Count 4.39 L 4.5-5.90 10^6/uL Hemoglobin 13.3 L 13.5-17.5 g/dL Hematocrit 39.0 L 41.0-53.0 % Mean Corpuscular Volume 89.0 80.0-100.0 fL Mean Corpuscular Hemoglobin 30.3 28.0-32.0 pg Mean Corpuscular Hemoglobin Concent 34.0 32.0-36.0 g/dL Red Cell Distribution Width 14.5 H 11.8-14.3 % Platelet Count 156 140-450 10^3/uL Mean Platelet Volume 8.5 6.9-10.8 fL Neutrophils (%) (Auto) 91.2 H 37.0-80.0 % Lymphocytes (%) (Auto) 2.7 L 10.0-50.0 % Monocytes (%) (Auto) 6.0 0.0-12.0 % Eosinophils (%) (Auto) 0.0 0.0-7.0 % Basophils (%) (Auto) 0.1 0.0-2.0 % Neutrophils # (Auto) 11.5 H 1.6-8.6 10 ^3/uL Lymphocytes # (Auto) 0.3 L 0.4-5.4 10 ^3/uL Monocytes # (Auto) 0.8 0-1.3 10 ^3/uL Eosinophils # (Auto) 0 0-0.8 10 ^3/uL Basophils # (Auto) 0 0-0.2 10 ^3/uL Nucleated Red Blood Cells 0.0 % Sodium Level 140 136-145 mmol/L Potassium Level 3.3 L 3.5-5.1 mmol/L Chloride Level 106 98-107 mmol/L Carbon Dioxide Level 26 20-31 mmol/L Anion Gap 8 5-15 Blood Urea Nitrogen 12 9-23 mg/dL Creatinine 0.94 0.700-1.30 mg/dL Glomerular Filtration Rate Calc 82 >90 mL/min BUN/Creatinine Ratio 12.8 10.0-20.0 Serum Glucose 158 H 74-106 mg/dL Lactic Acid Level 1.6 0.4-2.0 mmol/L Calcium Level 8.0 L 8.7-10.4 mg/dL Total Bilirubin 1.1 H 0.2-1.0 mg/dL Aspartate Amino Transferase (AST) 15 13-40 U/L Alanine Aminotransferase (ALT) 16 7-40 U/L Alkaline Phosphatase 61 46-116 U/L Total Protein 5.6 L 5.7-8.2 g/dL Albumin 3.3 3.2-4.8 g/dL Urine Color Light-yellow Yellow Urine Clarity Turbid H Clear Urine pH 6.5 5.0-9.0 Urine Specific [place] 1.017 1.001-1.035 Urine Protein Trace H Negative Urine Ketones Negative Negative Urine Blood Trace H Negative /uL Urine Nitrite Negative Negative Urine Bilirubin Negative Negative Urine Urobilinogen Normal Negative mg/dL Urine Leukocyte Esterase 3+ Negative /uL Urine RBC 3 0 - 3 /hpf Urine Microscopic WBC 40 H 0-3 /HPF Urine Squamous Epithelial Cells None seen <5 /hpf Urine Bacteria Few H None Seen /hpf Urine Mucus Few None Seen Urine Glucose Normal Normal mg/dL PATIENT: DENICE CUEVAS MACCT: [id number] UNIT: [id number] : 1945 LOC: ER ROOM / BED: / AGE / SEX: 80 / M ADM STATUS: REG ER SERVICE 57 ORDERING PHYSICIAN: TATE TRUJILLO MD PROCEDURE(s): ABPL - CT AB PEL WO CON-NO ORAL OR IV REASON: Generalized abdominal pain, constipation ORDER NUMBER(s): [id number], ACCESSION NUMBER(s): [id number] Exam: CT CT AB PEL WO CON-NO ORAL OR IV History: Generalized abdominal pain, constipation Comparison Study: CT CT AB PEL WO CON-NO ORAL OR IV on DOS: 01/22/25, CT CT AB PEL WITH IV CON ONLY on DOS: 03/23/24, CT CT AB PEL WO CON-NO ORAL OR IV on DOS: 10/10/22, CT ABD PELVIS WO CONTRAST on DOS: 05/10/21, GIWAG on DOS: 04/12/21 Technique: Multidetector spiral CT of the abdomen was performed from lung bases to pubic symphysis. Imaging was performed without IV contrast. Axial, coronal and sagittal multiplanar reformats were obtained from the axial data set by the technologist. Radiation dose: 1. Abdomen/Pelvis: CTDIvol 5.19 mGy, DLP 317.66 mGy*cm. Findings: Evaluation of solid organs is limited due to lack of intravenous contrast use. Lung Bases: No acute or significant lung base finding. Normal heart size. No pleural or pericardial effusion. Liver: The liver is normal in size. No focal lesions. Gallbladder and biliary Tree: Gallbladder is surgically absent. Spleen: Unremarkable Pancreas: The pancreas is grossly normal in appearance. Adrenal Glands: Unremarkable Kidneys: Kidneys are grossly normal without calculi or hydronephrosis. Bladder: Elena catheter. Bowel: Moderate volume of stool throughout the colon. Ascites: Absent Lymphadenopathy: No mesenteric, retroperitoneal or periportal lymphadenopathy. Abdominal wall and Mesentery: Unremarkable. Vasculature: The visualized abdominal aorta is normal in size and caliber. Evaluation of abdominal and pelvic vessels is limited due to lack of intravenous contrast. Pelvic Organs: [place] is enlarged. Musculoskeletal: No aggressive focal bony lesions, acute fractures or dislocation. IMPRESSION: 1. No acute abdominal or pelvic findings. 2. Moderate volume of stool throughout the colon ORDERING PHYSICIAN: TATE TRUJILLO MD PROCEDURE(s): CXR1 - CHEST XRAY 1 VIEW REASON: Suspected Sepsis ORDER NUMBER(s): [id number], ACCESSION NUMBER(s): [id number] CHEST RADIOGRAPH Indication: Suspected Sepsis Technique: Single frontal view of the chest was obtained COMPARISON: XY CHEST PORTABLE on DOS: 03/24/25, XY CHEST PORTABLE on DOS: 03/14/25, XY CHEST PORTABLE on DOS: 01/23/25, XY CHEST PORTABLE on DOS: 01/22/25, CXR1 on DOS: 04/09/21 FINDINGS: Lines and Tubes: None Lungs: Clear Pleura: No effusion. No pneumothorax. Cardiomediastinal contours: Unremarkable Bones: Unremarkable IMPRESSION: 1. No acute disease. SEPSIS Sepsis Screen Date sepsis recognized/suspect: Apr 18, 2025 Time Sepsis recognized/suspect: 0206 Recent Procedure: No On Antibiotic Therapy: No Respiratory Rate >20: No Heart Rate >90: No Temp<36 C (96.8 F) or >38.3 C: No SBP <90 or MAP <65 mmHG: No New Acute Mental Status Change: No Is the patient on CPAP, BIPAP,: No Physician Orders Electrocardigram (04/17/25 21:57) Sodium Chloride 0.9% (04/17/25 22:00) Vital Signs Q1HR (04/17/25:58) Saline Lock (04/17/25:58) Shake Maker (04/17/25 ) Rectal/Core Temps Only (04/17/25:58) Notify Md If Abnormal Vs (04/17/25 21:58) Blood Culture (04/17/25:58) Chest Xray 1 View (04/17/25:58) Ct Ab Pel Wo Con-No Oral Or Iv (04/17/25:58) Complete Blood Count (04/18/25 04:00) Comprehensive Metabolic Panel (04/18/25 04:00) Urine Bacterial Culture (04/18/25 00:39) Tamsulosin Hydrochloride (Flomax) (04/18/25 18:00) Allergies (04/18/25 00:39) Code Status (04/18/25 00:39) Sodium Chloride Lock (Saline Lock Ns) (04/18/25 06:00) Oxygen Per Hour (04/18/25 00:39) Hydrocodone-Acet 5/325mg Tab ([place]man 5/32 (04/18/25 00:45) Ondansetron Hcl (Zofran) (04/18/25 00:45) Docusate Sodium Capsule (Colace Capsule) (04/18/25 00:45) Fall Risk Precautions In Place QSHIFT (04/18/25 00:39) Complete Blood Count (04/19/25 04:00) Comprehensive Metabolic Panel (04/19/25 04:00) Condition: Serious (04/18/25 00:39) Acetaminophen Tablet (Tylenol Tablet) (04/18/25 00:45) Clear Liq Diet (04/18/25 Breakfast) Maintain Bed Rest (04/18/25 00:39) Sequential Compression Device (04/18/25 ) Pantoprazole (Protonix) (04/18/25 10:00) Ceftriaxone 1gm/50ml (Rocephin) (04/19/25 01:00) Admit (04/18/25 03:26) Nitroglycerin Sublingual (Ntrostat Subli (04/18/25 03:30) Morphine Sulfate Injection (04/18/25 03:30) Stat Ekg For Chest Pain (04/18/25 03:26) Notify Md Of Changes From Base (04/18/25 03:26) Ripper Operator For 24 Hours (04/18/25 03:26) Emergency Dysrhythmia Protocol (04/18/25 03:26) Rhythm Strips Once Every Shift (04/18/25 03:26) Oxygen By Nasal Cannula (04/18/25 03:26) Vital Signs Date Time Temp Pulse Resp B/P (MAP) Pulse Ox O2 Delivery O2 Flow Rate FiO2 04/18/25 03:13 108/56 (73) 04/18/25 01:52 98.1 78 18 90/65 (73) 97 98.1 04/18/25 01:52 68 18 97 Room Air* 0 21 04/17/25 23:44 100.4 98 16 95/64 (74) 95 100.4 04/17/25 22:00 110/35 04/17/25 21:51 97 04/17/25 21:50 98.5 100 17 98/62 97 98.5 Laboratory Tests Test 04/17/25 22:15 Lactic Acid Level 1.6 mmol/L (0.4-2.0) White Blood Count 12.6 10^3/uL (4.4-10.8) H Medications Medications Dose Ordered Sig/Tg Route Start Time Stop Time Status Last Admin Dose Admin Calcium Gluconate/ Sodium Chloride 50 ml @ 100 mls/hr ONCE ONCE IV 04/18/25 01:00 04/18/25 01:29 DC 04/18/25 01:00 100 MLS/HR Ceftriaxone Sodium 50 ml @ 100 mls/hr ONCE ONCE IV 04/18/25 00:30 04/18/25 00:59 DC 04/18/25 00:30 100 MLS/HR Pantoprazole Sodium 40 mg ONCE ONCE IV 04/18/25 00:45 04/18/25 00:52 DC 04/18/25 02:23 40 MG Potassium Chloride 100 ml @ 50 mls/hr ONCE ONCE IV 04/18/25 01:00 04/18/25 02:59 DC 04/18/25 01:00 50 MLS/HR Sodium Chloride 1,000 ml @ 130 mls/hr Q7H42M ONCE IV 04/17/25 22:00 04/18/25 05:41 04/17/25 22:00 130 MLS/HR Sodium Chloride 1,000 ml @ 1,000 mls/hr Q1H ONCE IV 04/17/25 22:00 04/17/25 22:59 DC 04/17/25 23:32 1,000 MLS/HR Vancomycin HCl 250 ml @ 250 mls/hr ONCE ONCE IV 04/18/25 00:30 04/18/25 01:29 DC 04/18/25 02:23 250 MLS/HR Assessment/Plan Assessment/Plan Acute abdominal pain Leukocytosis, unspecified Urinary tract infection Generalized weakness Plan 1. Admit to telemetry unit 2. Breathing treatment 3. Pain control management 4. IV antibiotic management 5. Management of fluids and electrolytes 6. Consultation for hospitalist 7. Diagnostic test abdomen/pelvis CT 8. DVT prophylaxis-on SCDs 9. Repeat labs CBC, CMP in a.m. 10. Home medication reviewed and reconciled 11. Continue with current medical management 12. Treatment plan discussed with patient and RN. Patient verbalized und erstanding. Plan discussed with: Patient, Other (RN) My Orders Orders - HARDY BHAGAT DNP Procedure Category Date Status Time Complete Blood Count LAB 04/18/25 Logged 04:00 Comprehensive LAB 04/18/25 Logged Metabolic Panel 04:00 Urine Bacterial SONIA 04/18/25 In Process Culture 00:39 Tamsulosin PHA 04/18/25 In Process Hydrochloride (Flomax) 18:00 Allergies YEN 04/18/25 In Process 00:39 Code Status CODE 04/18/25 Transmitted 00:39 Sodium Chloride Lock PHA 04/18/25 In Process (Saline Lock Ns) 06:00 Oxygen Per Hour RT 04/18/25 Transmitted 00:39 Hydrocodone-Acet PHA 04/18/25 In Process 5/325mg Tab ([place] 00:45 Ondansetron Hcl PHA 04/18/25 In Process (Zofran) 00:45 Docusate Sodium PHA 04/18/25 In Process Capsule (Colace 00:45 Fall Risk Precautions YEN 04/18/[address] 00:39 Complete Blood Count LAB 04/19/25 Verified 04:00 Comprehensive LAB 04/19/25 Verified Metabolic Panel 04:00 Condition: Serious YEN 04/18/25 In Process 00:39 Acetaminophen Tablet PHA 04/18/25 In Process (Tylenol Tablet) 00:45 Clear Liq Diet DIET 04/18/25 Transmitted Breakfast Maintain Bed Rest YEN 04/18/25 In Process 00:39 Sequential YEN 04/18/25 In Process Compression Device Pantoprazole PHA 04/18/25 In Process (Protonix) 10:00 Ceftriaxone 1gm/50ml PHA 04/19/25 In Process (Rocephin) 01:00 Admit ADMIT 04/18/25 Verified 03:26 Nitroglycerin [facility] 04/18/25 Verified Sublingual (Ntrostat 03:30 Morphine Sulfate [facility] 04/18/25 Verified Injection 03:30 Stat Ekg For Chest [facility] 04/18/25 Verified Pain 03:26 Notify Md Of Changes [facility] 04/18/25 Verified From Base 03:26 Ripper Operator For [facility] 04/18/25 Verified 24 Hours 03:26 Emergency Dysrhythmia [facility] 04/18/25 Verified Protocol 03:26 Rhythm Strips Once [facility] 04/18/25 Verified Every Shift 03:26 Oxygen By Nasal RT 04/18/25 Verified Cannula 03:26 Problem List: (1) Acute abdominal pain (2) Leukocytosis, unspecified (3) Urinary tract infection (4) Generalized weakness Date of Service: Apr 18, 2025 Billing Provider: HARDY BHAGAT DNP Common Visit Codes: [id number] INP/OBS CARE (HIGH) HARDY BHAGAT DNP Apr 18, 2025 03:58
[2025-04-18 05:18] LABS: Hematocrit 33.2 % (41.0-53.0); Hemoglobin 11.7 g/dL (13.5-17.5); Mean Corpuscular Hemoglobin 31.2 pg (28.0-32.0); Mean Corpuscular Volume 88.9 fL (80.0-100.0); Nucleated Red Blood Cells % 0.0 %
[2025-04-18 05:28] LABS: Alanine Aminotransferase 13 U/L (7-40); Alkaline Phosphatase 52 U/L (46-116); Anion Gap 9 (5-15); BUN/Creatinine Ratio 14.4 (10.0-20.0); Blood Urea Nitrogen 13 mg/dL (9-23); Carbon Dioxide 24 mmol/L (20-31); Potassium 3.8 mmol/L (3.5-5.1); Sodium 143 mmol/L (136-145)
[2025-04-18 05:39] LABS: Albumin 2.8 g/dL (3.2-4.8); Bilirubin, Total 1.2 mg/dL (0.2-1.0); Calcium 7.2 mg/dL (8.7-10.4); Chloride 110 mmol/L (98-107); Glucose 116 mg/dL (74-106); Total Protein 4.7 g/dL (5.7-8.2)
[2025-04-18] MEDS: SODIUM CHLOR 0.9% PF (SALINE LOCK) 10ML VIAL/SYR IV SCH (06:14)
[2025-04-18 07:33] VITALS: PULSE 84; RESP 19; O2SAT 98
[2025-04-18] MEDS: PANTOPRAZOLE 40 MG/10 ML VIAL INJ IV SCH (10:22)
--- NOTE | 2025-04-18 13:47 | DVHPN2 ---
Subjective states suprapubic pain is bbetter after bm has hinton catheter for bph also c/o sore throat Changes from previous H/P or p: No Changes Eyes: No Pain, No Vision change, No Conjunctivae inflammation, No Eyelid inflammation, No Other, No Redness ENT: No Ear pain, No Ear discharge, No Nose pain, No Nose discharge, No Nose congestion, No Mouth pain, No Mouth swelling, No Throat pain, No Throat swelling, No Other Cardiovascular: No Chest Pain, No Palpitations, No Orthopnea, No Paroxysmal Noc. Dyspnea, No Edema, No Lt Headedness, No Other Respiratory: No Cough, No Dry, No Shortness of breath, No SOB with excertion, No Wheezing, No Hemoptysis, No Pleuritic Pain, No Sputum, No Other Gastrointestinal: Nausea, Vomiting, Abdominal Pain; No Diarrhea; Constipation; No Melena, No Hematochezia, No Other Genitourinary: No Dysuria, No Frequency, No Incontinence, No Hematuria, No Retention, No Other Musculoskeletal: No other, No neck pain, No shoulder pain, No arm pain, No back pain, No hand pain, No leg pain, No foot pain Skin: No Rash, No Lesions, No Jaundice, No Bruising, No Other Objective Vitals Vital Signs Date Time Temp Pulse Resp B/P (MAP) Pulse Ox O2 Delivery O2 Flow Rate FiO2 04/18/25 13:13 79 16 112/58 (76) 97 04/18/25 08:25 98.8 98.8 04/18/25 07:33 Nasal Cannula* 2 28 General Appearance: Alert, Oriented X3, Cooperative, No acute distress Lungs: Clear to auscultation Cardiovascular: Regular rate, Normal S1, Normal S2 Musculoskeletal: Normal sensory function, Normal motor function Neuro: Normal gait, Normal speech Medications Current Medications Medications Dose Ordered Sig/Tg Route Start Time Stop Time Status Last Admin Dose Admin Ceftriaxone Sodium 50 ml @ 100 mls/hr DAILY@0100 IV 04/19/25 01:00 Tamsulosin HCl 0.4 mg QPM PO 04/18/25 18:00 Sodium Chloride 10 ml Q8HR IV 04/18/25 06:00 04/18/25 06:14 10 ML Acetaminophen/ Hydrocodone Bitart 1 tab Q4HP PRN PO 04/18/25 00:45 Docusate Sodium 100 mg BIDPRN PRN PO 04/18/25 00:45 Acetaminophen 650 mg Q6HP PRN PO 04/18/25 00:45 Laboratory Results Laboratory Tests 04/18/25 04:56 Chemistry Test 04/17/25 22:15 04/18/25 04:56 Albumin 3.3 g/dL (3.2-4.8) 2.8 g/dL (3.2-4.8) L Calcium Level 8.0 mg/dL (8.7-10.4) L 7.2 mg/dL (8.7-10.4) L Total Protein 5.6 g/dL (5.7-8.2) L 4.7 g/dL (5.7-8.2) L LFT Test 04/17/25 22:15 04/18/25 04:56 Alanine Aminotransferase (ALT) 16 U/L (7-40) 13 U/L (7-40) Alkaline Phosphatase 61 U/L (46-116) 52 U/L (46-116) Aspartate Amino Transferase (AST) 15 U/L (13-40) 13 U/L (13-40) Total Bilirubin 1.1 mg/dL (0.2-1.0) H 1.2 mg/dL (0.2-1.0) H Urinalysis Test 04/17/25 21:58 Urine Color Light-yellow (Yellow) Urine Clarity Turbid (Clear) H Urine pH 6.5 (5.0-9.0) Urine Specific [place] 1.017 (1.001-1.035) Urine Protein Trace (Negative) H Urine Ketones Negative (Negative) Urine Blood Trace /uL (Negative) H Urine Nitrite Negative (Negative) Urine Bilirubin Negative (Negative) Urine Urobilinogen Normal mg/dL (Negative) Urine Leukocyte Esterase 3+ /uL (Negative) Urine RBC 3 /hpf (0 - 3) Urine Microscopic WBC 40 /HPF (0-3) H Urine Squamous Epithelial Cells None seen /hpf (<5) Urine Bacteria Few /hpf (None Seen) H Urine Mucus Few (None Seen) Urine Glucose Normal mg/dL (Normal) Labs and/or images reviewed: Labs reviewed by me, Image(s) reviewed by me Assessment/Plan Assessment/Plan complicated uti- change hinton/culture pending/treat bph constipation- resolved/had bm ambulatory status Plan discussed with: Patient, Other Date of Service: Apr 18, 2025 Billing Provider: LAURA PIMENTEL MD Common Visit Codes: [id number] INP/OBS CARE(MOD) LAURA PIMENTEL MD Apr 18, 2025 13:47
[2025-04-18 17:17] VITALS: BP 129/59; PULSE 77; RESP 16; TEMP 97.8; O2SAT 97
[2025-04-18] MEDS: TAMSULOSIN HYDROCHLORIDE 0.4 MG CAP PO SCH (18:29)
[2025-04-18] MEDS: DOCUSATE SOD 100 MG CAP PO PRN (18:29)
[2025-04-18] MEDS: ACETAMINOPHEN 325 MG TAB PO PRN (18:29)
[2025-04-18 20:00] VITALS: PULSE 71; PULSE 80; RESP 19; O2SAT 99
[2025-04-18 21:00] VITALS: BP 97/54; PULSE 71; RESP 19; TEMP 97.2; O2SAT 99
[2025-04-19] VITALS (7 sets, daily range): BP systolic 115–148; BP diastolic 59–84; PULSE 68–89; RESP 17–19; TEMP 97.6–98.4; O2SAT 97–100
[2025-04-19 06:40] LABS: Hematocrit 34.6 % (41.0-53.0); Hemoglobin 12.0 g/dL (13.5-17.5); Mean Corpuscular Hemoglobin 31.1 pg (28.0-32.0); Mean Corpuscular Volume 89.3 fL (80.0-100.0); Nucleated Red Blood Cells % 0.0 %
[2025-04-19 06:52] LABS: Alanine Aminotransferase 13 U/L (7-40); Alkaline Phosphatase 62 U/L (46-116); Anion Gap 8 (5-15); BUN/Creatinine Ratio 12.7 (10.0-20.0); Blood Urea Nitrogen 10 mg/dL (9-23); Carbon Dioxide 26 mmol/L (20-31); Glucose 86 mg/dL (74-106); Sodium 142 mmol/L (136-145)
[2025-04-19 06:53] LABS: Albumin 3.0 g/dL (3.2-4.8); Bilirubin, Total 1.0 mg/dL (0.2-1.0); Calcium 8.0 mg/dL (8.7-10.4); Chloride 108 mmol/L (98-107); Potassium 3.5 mmol/L (3.5-5.1); Total Protein 5.2 g/dL (5.7-8.2)
--- NOTE | 2025-04-19 11:07 | DVHINCON2 ---
Date Seen: Apr 19, 2025 Referring Physician MD Brandyn Reason for Consultation Cardiac risk stratification History of Present Illness This is a Chinese-speaking 80-year-old man who presents to the emergency room with chief complaint of abdominal pain and retention. The patient comes in with a chronic Elena catheter put in by urologist . The patient reports that over the last couple of days prior to emergency room arrival, his catheter began to feel uncomfortable which prompted him to come to the emergency room. Cardiology has been consulted at this time for cardiac risk stratification pending an outpatient urologic procedure. Apparently, the patient missed his outpatient cardiac clearance appointment and the primary care team while inpatient would like clearance so patient can proceed with his outpatient procedure. Initial twelve electrocardiogram seen in patient's hard chart reveals normal sinus rhythm without any significant ST segment changes. Troponin levels have been negative. Patient denies any cardiac symptoms. Significant past medical history includes hypertension, benign prostatic hyperplasia, and history of tobacco use. Past Medical History Past medical history reviewed. No other significant than mentioned above. Past Surgical History Cholecystectomy Repair of right inguinal incarcerated hernia Family History: Asthma G8 FATHER FH: [place] (myocardial infarction) G8 MOTHER Hypertension G8 MOTHER Family History Family history reviewed. 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, #2 SPRAY Prov:BHAVANA HORNE MD 01/29/25 Hydrocodone-Acetaminophen (Hydrocodone Bitartrate/AC 5-325 mg) 1 Tab Tab, 1 TAB PO Q8HP PRN, #10 TAB Prov:BHAVANA HORNE MD 01/29/25 Finasteride (Finasteride) 5 Mg Tab, 5 MG PO DAILY for 30 Days, #30 TAB Prov:BHAVANA HORNE MD 01/29/25 Tamsulosin Hcl (Flomax) 0.4 Mg Cap, 1 CAP PO DAILY, #90 CAP 0 Refills Prov:ANICETO LUJAN MD 04/19/21 Reported Medications Omeprazole (Gnp Omeprazole) 20 Mg Tab, 20 MG PO DAILY, TAB 03/24/25 Lisinopril (Lisinopril) 20 Mg Tab, 20 MG PO DAILY for 30 Days, MG 03/24/25 Current Medications Current Medications Medications (Trade) Dose Ordered Sig/Tg Route PRN Reason Start Time Stop Time Status Last Admin Ceftriaxone Sodium 50 ml @ 100 mls/hr DAILY@0100 IV 04/19/25 01:00 04/19/25 00:55 Tamsulosin HCl (Flomax) 0.4 mg QPM PO 04/18/25 18:00 04/18/25 18:29 Review of Systems Constitutional: No symptom reported Ears, Nose, & Throat: No symptom reported Eyes: No symptom reported Neurological: No symptoms reported Pulmonary/Respiratory: No symptoms reported Cardiovascular: No symptom reported Gastrointestinal: Abdominal pain Genitourinary: Urinary retention Musculoskeletal: No symptom reported Skin: No symptom reported Psychiatric: No symptom reported Endocrine: No symptom reported Hematologic/Lymphatic: No symptom reported Vital Signs Vital Signs Date Time Temp Pulse Resp B/P (MAP) Pulse Ox O2 Delivery O2 Flow Rate FiO2 04/19/25 09:00 98.4 89 18 116/59 (78) 98 98.4 04/19/25 08:00 Room Air* 0 21 Physical Exam General Appearance: Cooperative. Well-developed. Well-nourished. No acute distress. Pulmonary/Respiratory: Clear, bilateral breaths sounds. Cardiovascular/Chest: Regular rate and rhythm. Peripheral Pulses: 2+ Radial (R). 2+ Radial (L). 2+ Pedal (R). 2+ Pedal (L) Abdominal Exam: Normal bowel sounds. Ankle Exam: Negative ankle edema Lower extremities: Negative lower extremity edema Neuro/Mental Status: A/OX4, coherent. Thoughts/Psych: Normal thought pattern. Appropriate mood and affect. Good judgment and insight. Appearance: No acute distress. Skin Exam: Normal inspection. Normal color. Warm and dry. Labs/Diagnostic Data Labs Test 04/19/25 05:00 04/17/25 22:51 04/17/25 22:15 04/17/25 21:58 Range/Units White Blood Count 13.0 H 4.4-10.8 10^3/uL Red Blood Count 3.87 L 4.5-5.90 10^6/uL Hemoglobin 12.0 L 13.5-17.5 g/dL Hematocrit 34.6 L 41.0-53.0 % Mean Corpuscular Volume 89.3 80.0-100.0 fL Mean Corpuscular Hemoglobin 31.1 28.0-32.0 pg Mean Corpuscular Hemoglobin Concent 34.8 32.0-36.0 g/dL Red Cell Distribution Width 14.9 H 11.8-14.3 % Platelet Count 119 L 140-450 10^3/uL Mean Platelet Volume 9.6 6.9-10.8 fL Neutrophils (%) (Auto) 87.4 H 37.0-80.0 % Lymphocytes (%) (Auto) 5.8 L 10.0-50.0 % Monocytes (%) (Auto) 6.3 0.0-12.0 % Eosinophils (%) (Auto) 0.4 0.0-7.0 % Basophils (%) (Auto) 0.1 0.0-2.0 % Neutrophils # (Auto) 11.4 H 1.6-8.6 10 ^3/uL Lymphocytes # (Auto) 0.8 0.4-5.4 10 ^3/uL Monocytes # (Auto) 0.8 0-1.3 10 ^3/uL Eosinophils # (Auto) 0.1 0-0.8 10 ^3/uL Basophils # (Auto) 0 0-0.2 10 ^3/uL Nucleated Red Blood Cells 0.0 % Sodium Level 142 136-145 mmol/L Potassium Level 3.5 3.5-5.1 mmol/L Chloride Level 108 H 98-107 mmol/L Carbon Dioxide Level 26 20-31 mmol/L Anion Gap 8 5-15 Blood Urea Nitrogen 10 9-23 mg/dL Creatinine 0.79 0.700-1.30 mg/dL Glomerular Filtration Rate Calc 90 >90 mL/min BUN/Creatinine Ratio 12.7 10.0-20.0 Serum Glucose 86 74-106 mg/dL Calcium Level 8.0 L 8.7-10.4 mg/dL Total Bilirubin 1.0 0.2-1.0 mg/dL Aspartate Amino Transferase (AST) 13 13-40 U/L Alanine Aminotransferase (ALT) 13 7-40 U/L Alkaline Phosphatase 62 46-116 U/L Total Protein 5.2 L 5.7-8.2 g/dL Albumin 3.0 L 3.2-4.8 g/dL Troponin I High Sensitivity 19 </=54 ng/L Lactic Acid Level 1.6 0.4-2.0 mmol/L Urine Color Light-yellow Yellow Urine Clarity Turbid H Clear Urine pH 6.5 5.0-9.0 Urine Specific [employer] 1.017 1.001-1.035 Urine Protein Trace H Negative Urine Ketones Negative Negative Urine Blood Trace H Negative /uL Urine Nitrite Negative Negative Urine Bilirubin Negative Negative Urine Urobilinogen Normal Negative mg/dL Urine Leukocyte Esterase 3+ Negative /uL Urine RBC 3 0 - 3 /hpf Urine Microscopic WBC 40 H 0-3 /HPF Urine Squamous Epithelial Cells None seen <5 /hpf Urine Bacteria Few H None Seen /hpf Urine Mucus Few None Seen Urine Glucose Normal Normal mg/dL Microbiology Date/Time Source Procedure Growth Status 04/17/25 22:15 Blood Blood Culture - Preliminary NO GROWTH AFTER 24 HOURS OF INCUBATION. Resulted 04/17/25 21:58 Voided Urine Urine Culture - Preliminary Resulted Assessment Preprocedural cardiovascular examination Hypertension Benign prostatic hyperplasia History of tobacco use Plan/Recommendation We will continue following plan/recommendations (Dr. Yen): A transthoracic echocardiogram reveals an EF of approximately 65% (preliminary reading per Dr. Yen). Revised Cardiac Risk Index (Narinder criteria): 0 points (0.5% risk of major cardiac event). The patient has no cardiac contraindications to proceed with the procedure. Cardiac symptoms have been ruled out. There is no underlying history of congestive heart failure, coronary artery disease, or equivalent of cardiac symptoms. The patient reports a good functional capacity prior to this admission. Per cardiology standpoint, patient is at an acceptable-risk for moderate-risk surgery. There is no additional cardiac work- up indicated prior to surgery. Thank you for allowing us to participate in this patient's care. Please call if you have any questions or concerns. Critical care time spent: 44 minutes This medical document was created using an electronic medical record system with voice recognition software and computerized dictation system. Although this document has been carefully reviewed, there might still be some phonetic and typographical errors. Occasional wrong-word or ``sound-alike substitutions may have occurred due to the inherent limitations of voice recognition software. These areas are purely typographical due to imperfections of the software programs and do not reflect any compromise in the patient's medical care. Please read the chart carefully and recognize, using context, where these substitutions have occurred. Plan discussed with: Patient NYHA Physical activity limitations: NA Date of Service: Apr 19, 2025 Billing Provider: RADHA SOFIA Cardiology Common Codes: [id number] INP/OBS CARE (High) Cardiology Consultation Codes: [id number] CONSULT <45MIN RADHA SOFIA Apr 19, 2025 11:07
--- NOTE | 2025-04-19 13:00 | DVHSR ---
APPROVED REPORT EXAM: Two-dimensional and M-mode echocardiogram with Doppler and color Doppler. Blood Pressure: 125/72 mmHg INDICATION Pre-Op RISK FACTORS Height: 5'3", Weight: 135 DIMENSIONS LVDd4.3 (3.8-5.7cm)LA (2D)4.0 (1.9-4.0cm)Aortic Root3.3 (2.0-3.7cm) LVDs2.2 (2.5-4.0cm)LA (MM) (1.9-4.0cm)Aortic Cusp Exc1.1 (1.5-2.0cm) EF (%) 79.0 (55-70%)Rt. Atrium4.2 (1.9-4.0cm)Asc. Aorta3.0 cm IVSd1.2 (0.7-1.1cm)RV (D)3.3 (1.8-2.4cm) PWd1.3 (0.7-1.1cm) Mitral Valve MitralMitral Stenosis E wave0.92m/sMV Mean GR.mmHg A wave0.71m/sMV Peak GR.mmHg E/A ratio1.32D MVAcm2 DECEL [id number] 1/2 Timems Aortic Valve Aortic ValveAortic Stenosis V11.12m/Gracia Mean GR.8mmHg V21.89m/Gracia Peak GR.14mmHg LVOT Diameter2.0 (1.8-2.4cm)Doppler AVA1.86cm2 Pulmonic Valve V21.01m/s Tricuspid Valve TR Velocity2.60m/s [id number] Conclusion lvef 60% moderate LVH nroaml rv function mild tricuspid regurg
[2025-04-19] MEDS: PIPERACILLIN-TAZOB 3.375GM 100 ML IV SCH (13:47)
--- NOTE | 2025-04-19 16:33 | DVHPN2 ---
Subjective doing well. Seen at bedside today. Reviewed: H&P Changes from previous H/P or p: No Changes General: Per HPI Eyes: No Pain, No Vision change, No Conjunctivae inflammation, No Eyelid inflammation, No Other, No Redness ENT: No Ear pain, No Ear discharge, No Nose pain, No Nose discharge, No Nose congestion, No Mouth pain, No Mouth swelling, No Throat pain, No Throat swelling, No Other Cardiovascular: No Chest Pain, No Palpitations, No Orthopnea, No Paroxysmal Noc. Dyspnea, No Edema, No Lt Headedness, No Other Respiratory: No Cough, No Dry, No Shortness of breath, No SOB with excertion, No Wheezing, No Hemoptysis, No Pleuritic Pain, No Sputum, No Other Gastrointestinal: Nausea, Vomiting, Abdominal Pain; No Diarrhea; Constipation; No Melena, No Hematochezia, No Other Genitourinary: No Dysuria, No Frequency, No Incontinence, No Hematuria, No Retention, No Other Musculoskeletal: No other, No neck pain, No shoulder pain, No arm pain, No back pain, No hand pain, No leg pain, No foot pain Skin: No Rash, No Lesions, No Jaundice, No Bruising, No Other Objective Vitals Vital Signs Date Time Temp Pulse Resp B/P (MAP) Pulse Ox O2 Delivery O2 Flow Rate FiO2 04/19/25 13:00 97.7 82 17 115/62 (79) 97 97.7 04/19/25 08:00 Room Air* 0 21 Intake/Output Intake and Output 04/19/25 07:00 Intake Total 750 ml Output Total 725 ml Balance 25 ml Intake Oral 700 ml IV Total 50 ml Output Urine Total 725 ml # Bowel Movements 1 Exam Constitutional: No symptom reported Ears, Nose, & Throat: No symptom reported Eyes: No symptom reported Neurological: No symptoms reported Pulmonary/Respiratory: No symptoms reported Cardiovascular: No symptom reported Gastrointestinal: Abdominal pain Genitourinary: Urinary retention Musculoskeletal: No symptom reported Skin: No symptom reported Psychiatric: No symptom reported Endocrine: No symptom reported Hematologic/Lymphatic: No symptom reported General Appearance: Alert, Oriented X3, Cooperative, No acute distress Lungs: Clear to auscultation Cardiovascular: Regular rate, Normal S1, Normal S2 Musculoskeletal: Normal sensory function, Normal motor function Neuro: Normal gait, Normal speech Medications Current Medications Medications Dose Ordered Sig/Tg Route Start Time Stop Time Status Last Admin Dose Admin Tamsulosin HCl 0.4 mg QPM PO 04/18/25 18:00 04/18/25 18:29 0.4 MG Sodium Chloride 10 ml Q8HR IV 04/18/25 06:00 04/19/25 13:47 10 ML Acetaminophen/ Hydrocodone Bitart 1 tab Q4HP PRN PO 04/18/25 00:45 Docusate Sodium 100 mg BIDPRN PRN PO 04/18/25 00:45 04/18/25 18:29 100 MG Acetaminophen 650 mg Q6HP PRN PO 04/18/25 00:45 04/18/25 18:29 650 MG Piperacillin Sod/ Tazobactam Sod 100 ml @ 25 mls/hr Q8HR IV 04/19/25 14:00 04/19/25 13:47 25 MLS/HR Laboratory Results Laboratory Tests 04/19/25 05:00 Chemistry Test 04/19/25 05:00 Albumin 3.0 g/dL (3.2-4.8) L Calcium Level 8.0 mg/dL (8.7-10.4) L Total Protein 5.2 g/dL (5.7-8.2) L LFT Test 04/19/25 05:00 Alanine Aminotransferase (ALT) 13 U/L (7-40) Alkaline Phosphatase 62 U/L (46-116) Aspartate Amino Transferase (AST) 13 U/L (13-40) Total Bilirubin 1.0 mg/dL (0.2-1.0) Urinalysis Test 04/17/25 21:58 Urine Color Light-yellow (Yellow) Urine Clarity Turbid (Clear) H Urine pH 6.5 (5.0-9.0) Urine Specific [place] 1.017 (1.001-1.035) Urine Protein Trace (Negative) H Urine Ketones Negative (Negative) Urine Blood Trace /uL (Negative) H Urine Nitrite Negative (Negative) Urine Bilirubin Negative (Negative) Urine Urobilinogen Normal mg/dL (Negative) Urine Leukocyte Esterase 3+ /uL (Negative) Urine RBC 3 /hpf (0 - 3) Urine Microscopic WBC 40 /HPF (0-3) H Urine Squamous Epithelial Cells None seen /hpf (<5) Urine Bacteria Few /hpf (None Seen) H Urine Mucus Few (None Seen) Urine Glucose Normal mg/dL (Normal) Microbiology Microbiology Date/Time Source Procedure Growth Status 04/17/25 22:15 Blood Blood Culture - Preliminary NO GROWTH AFTER 24 HOURS OF INCUBATION. Resulted 04/17/25 21:58 Voided Urine Urine Culture - Preliminary Resulted Labs and/or images reviewed: Labs reviewed by me, Image(s) reviewed by me Assessment/Plan Assessment/Plan 80-year-old male with past medical history of prostate cancer, hypertension, UTIs and indwelling catheter who presented to [facility] ED with complaint of abdominal pain. Patient reports he has been experiencing diffuse abdominal pain, unable to have bowel movement for the past 2 days, associated with nausea, and episode of vomiting. The patient comes in with a chronic Elena catheter put in by urologist . The patient reports that over the last couple of days prior to emergency room arrival, his catheter began to feel uncomfortable which prompted him to come to the emergency room. 04/19: Cardiology has evaluated the patient and deemed acceptable risk for moderate surgery. Echocardiogram showing EF 65%, moderate LVH, normal RV, no common done any valvular abnormalities, RVSP 30. Cardiac clearance was done but the surgery as outpatient. Pending urine culture, continuing Zosyn, patient vital signs stable. Elena to remain in place. Needs to follow up with Urology for Elena. Acute complicated cystitis, with chronic Elena Chronic Elena for BPH ? Chronic prostatitis Hypertension Benign prostatic hyperplasia History of tobacco use Plan: IV antibiotics Prn analgesia Prn antiemetics Urine culture pending Cardiology following for cardiac clearance Tele Full code Plan discussed with: Patient My Orders Orders - VILLA DAVIDSON MD Procedure Category Date Status Time Piperacillin-Tazob PHA 04/19/25 In Process 3.375gm (Zosyn 3.375g 14:00 Date of Service: Apr 19, 2025 Billing Provider: VILLA DAVIDSON MD Common Visit Codes: [id number] INP/OBS CARE(HIGH) VILLA DAVIDSON MD Apr 19, 2025 16:33
[2025-04-20] VITALS (8 sets, daily range): BP systolic 107–151; BP diastolic 62–88; PULSE 66–73; RESP 14–18; TEMP 97.6–98.1; O2SAT 97–99
[2025-04-20 07:35] LABS: Hematocrit 34.1 % (41.0-53.0); Hemoglobin 12.1 g/dL (13.5-17.5); Mean Corpuscular Hemoglobin 31.3 pg (28.0-32.0); Mean Corpuscular Volume 88.2 fL (80.0-100.0); Nucleated Red Blood Cells % 0.0 %
[2025-04-20 07:38] LABS: Alanine Aminotransferase 11 U/L (7-40); Alkaline Phosphatase 62 U/L (46-116); Anion Gap 11 (5-15); BUN/Creatinine Ratio 8.9 (10.0-20.0); Bilirubin, Total 0.9 mg/dL (0.2-1.0); Carbon Dioxide 25 mmol/L (20-31); Glucose 100 mg/dL (74-106); Sodium 143 mmol/L (136-145)
[2025-04-20 07:40] LABS: Albumin 3.0 g/dL (3.2-4.8); Blood Urea Nitrogen 7 mg/dL (9-23); Calcium 8.1 mg/dL (8.7-10.4); Chloride 107 mmol/L (98-107); Potassium 3.2 mmol/L (3.5-5.1); Total Protein 5.3 g/dL (5.7-8.2)
[2025-04-20] MEDS: MEROPENEM 1GM IVPB 50 ML IV SCH (12:54)
[2025-04-20] MEDS: POTASSIUM EFFERVESENT TAB 25 MEQ PO ONE (15:10)
--- NOTE | 2025-04-20 15:56 | ECG ---
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
--- NOTE | 2025-04-20 16:04 | DVHPN2 ---
Subjective doing well. Seen at bedside today. Reviewed: H&P Changes from previous H/P or p: No Changes General: Per HPI Eyes: No Pain, No Vision change, No Conjunctivae inflammation, No Eyelid inflammation, No Other, No Redness ENT: No Ear pain, No Ear discharge, No Nose pain, No Nose discharge, No Nose congestion, No Mouth pain, No Mouth swelling, No Throat pain, No Throat swelling, No Other Cardiovascular: No Chest Pain, No Palpitations, No Orthopnea, No Paroxysmal Noc. Dyspnea, No Edema, No Lt Headedness, No Other Respiratory: No Cough, No Dry, No Shortness of breath, No SOB with excertion, No Wheezing, No Hemoptysis, No Pleuritic Pain, No Sputum, No Other Gastrointestinal: Nausea, Vomiting, Abdominal Pain; No Diarrhea; Constipation; No Melena, No Hematochezia, No Other Genitourinary: No Dysuria, No Frequency, No Incontinence, No Hematuria, No Retention, No Other Musculoskeletal: No other, No neck pain, No shoulder pain, No arm pain, No back pain, No hand pain, No leg pain, No foot pain Skin: No Rash, No Lesions, No Jaundice, No Bruising, No Other Objective Vitals Vital Signs Date Time Temp Pulse Resp B/P (MAP) Pulse Ox O2 Delivery O2 Flow Rate FiO2 04/20/25 13:00 98.1 67 18 149/79 (102) 97 98.1 04/20/25 08:15 Room Air* 0 21 Intake/Output Intake and Output 04/20/25 07:00 Intake Total 1520 ml Output Total 2300 ml Balance -780 ml Intake Oral 1520 ml Output Urine Total 2300 ml # Bowel Movements 1 Exam Constitutional: No symptom reported Ears, Nose, & Throat: No symptom reported Eyes: No symptom reported Neurological: No symptoms reported Pulmonary/Respiratory: No symptoms reported Cardiovascular: No symptom reported Gastrointestinal: Abdominal pain Genitourinary: Urinary retention Musculoskeletal: No symptom reported Skin: No symptom reported Psychiatric: No symptom reported Endocrine: No symptom reported Hematologic/Lymphatic: No symptom reported General Appearance: Alert, Oriented X3, Cooperative, No acute distress Lungs: Clear to auscultation Cardiovascular: Regular rate, Normal S1, Normal S2 Musculoskeletal: Normal sensory function, Normal motor function Neuro: Normal gait, Normal speech Medications Current Medications Medications Dose Ordered Sig/Tg Route Start Time Stop Time Status Last Admin Dose Admin Tamsulosin HCl 0.4 mg QPM PO 04/18/25 18:00 04/19/25 18:13 0.4 MG Sodium Chloride 10 ml Q8HR IV 04/18/25 06:00 04/20/25 12:54 10 ML Acetaminophen/ Hydrocodone Bitart 1 tab Q4HP PRN PO 04/18/25 00:45 Docusate Sodium 100 mg BIDPRN PRN PO 04/18/25 00:45 04/18/25 18:29 100 MG Acetaminophen 650 mg Q6HP PRN PO 04/18/25 00:45 04/20/25 15:11 650 MG Trazodone HCl 50 mg HS PO 04/19/25 22:00 04/19/25 21:46 50 MG Meropenem 50 ml @ 17 mls/hr Q8HR IV 04/20/25 14:00 05/04/25 13:59 04/20/25 12:54 17 MLS/HR Laboratory Results Laboratory Tests 04/20/25 06:09 Chemistry Test 04/20/25 06:09 Albumin 3.0 g/dL (3.2-4.8) L Calcium Level 8.1 mg/dL (8.7-10.4) L Total Protein 5.3 g/dL (5.7-8.2) L LFT Test 04/20/25 06:09 Alanine Aminotransferase (ALT) 11 U/L (7-40) Alkaline Phosphatase 62 U/L (46-116) Aspartate Amino Transferase (AST) 12 U/L (13-40) L Total Bilirubin 0.9 mg/dL (0.2-1.0) Urinalysis Test 04/17/25 21:58 Urine Color Light-yellow (Yellow) Urine Clarity Turbid (Clear) H Urine pH 6.5 (5.0-9.0) Urine Specific [place] 1.017 (1.001-1.035) Urine Protein Trace (Negative) H Urine Ketones Negative (Negative) Urine Blood Trace /uL (Negative) H Urine Nitrite Negative (Negative) Urine Bilirubin Negative (Negative) Urine Urobilinogen Normal mg/dL (Negative) Urine Leukocyte Esterase 3+ /uL (Negative) Urine RBC 3 /hpf (0 - 3) Urine Microscopic WBC 40 /HPF (0-3) H Urine Squamous Epithelial Cells None seen /hpf (<5) Urine Bacteria Few /hpf (None Seen) H Urine Mucus Few (None Seen) Urine Glucose Normal mg/dL (Normal) Microbiology Microbiology Date/Time Source Procedure Growth Status 04/17/25 22:15 Blood Blood Culture - Preliminary NO GROWTH AFTER 48 HOURS OF INCUBATION. Resulted 04/17/25 21:58 Voided Urine Urine Culture - Final Escherichia coli - ESBL Complete Labs and/or images reviewed: Labs reviewed by me, Image(s) reviewed by me Assessment/Plan Assessment/Plan 80-year-old male with past medical history of prostate cancer, hypertension, UTIs and indwelling catheter who presented to [facility] ED with complaint of abdominal pain. Patient reports he has been experiencing diffuse abdominal pain, unable to have bowel movement for the past 2 days, associated with nausea, and episode of vomiting. The patient comes in with a chronic Elena catheter put in by urologist . The patient reports that over the last couple of days prior to emergency room arrival, his catheter began to feel uncomfortable which prompted him to come to the emergency room. 04/19: Cardiology has evaluated the patient and deemed acceptable risk for moderate surgery. Echocardiogram showing EF 65%, moderate LVH, normal RV, no common done any valvular abnormalities, RVSP 30. Cardiac clearance was done but the surgery as outpatient. Pending urine culture, continuing Zosyn, patient vital signs stable. Elena to remain in place. Needs to follow up with Urology for Elena. 04/20: Communicated with micro lab, culture is growing ESBL. We will insert midline, escalated to meropenem pending sensitivities. Diagnosis: Acute complicated cystitis, with chronic Elena Chronic Elena for BPH ? Chronic prostatitis Hypertension Benign prostatic hyperplasia History of tobacco use Plan: IV antibiotics Prn analgesia Prn antiemetics Urine culture pending Cardiology following for cardiac clearance Tele Full code Plan discussed with: Patient My Orders Orders - VILLA DAVIDSON MD Procedure Category Date Status Time Cardiac DIET 04/19/25 Transmitted Diet-2gna,Lofat,Lochol Dinner Trazodone Hcl PHA 04/19/25 In Process (Desyrel) 22:00 Insert Midline ORDERS 04/20/25 Transmitted 11:37 Meropenem 1gm Ivpb PHA 04/20/25 In Process (Merrem 1gm/50ml) 14:00 Date of Service: Apr 20, 2025 Billing Provider: VILLA DAVIDSON MD Common Visit Codes: [id number] INP/OBS CARE(HIGH) VILLA DAVIDSON MD Apr 20, 2025 16:04
[2025-04-20] MEDS: HYDROcodone-ACET 5/325MG TAB PO PRN (18:24)
[2025-04-20] MEDS: ONDANSETRON HCL 4 MG/2 ML VIAL IV PRN (22:17)
[2025-04-21 01:00] VITALS: BP 127/71; PULSE 65; RESP 17; TEMP 97.8; O2SAT 98
[2025-04-21 05:00] VITALS: BP 127/77; PULSE 62; RESP 17; TEMP 97.9; O2SAT 96
[2025-04-21 07:05] LABS: Hematocrit 35.4 % (41.0-53.0); Hemoglobin 12.2 g/dL (13.5-17.5); Mean Corpuscular Hemoglobin 30.5 pg (28.0-32.0); Mean Corpuscular Volume 88.8 fL (80.0-100.0); Nucleated Red Blood Cells % 0.1 %
[2025-04-21 07:13] LABS: Anion Gap 9 (5-15); Carbon Dioxide 28 mmol/L (20-31); Chloride 105 mmol/L (98-107); Potassium 3.5 mmol/L (3.5-5.1); Sodium 142 mmol/L (136-145)
[2025-04-21 07:19] LABS: BUN/Creatinine Ratio 10.5 (10.0-20.0); Blood Urea Nitrogen 8 mg/dL (9-23); Calcium 8.4 mg/dL (8.7-10.4); Glucose 89 mg/dL (74-106)
[2025-04-21 07:32] VITALS: BP 116/61; PULSE 61; RESP 18; TEMP 97.9; O2SAT 97
[2025-04-21 08:00] VITALS: PULSE 61; RESP 16; O2SAT 99
--- NOTE | 2025-04-21 08:02 | DVHDS2 ---
Discharge Summary Date of Admission Apr 18, 2025 at 03:26 Date of Discharge: Apr 21, 2025 Labs/Diagnostic Data: Laboratory Results Test 04/21/25 06:36 04/20/25 06:09 04/17/25 22:51 04/17/25 22:15 White Blood Count 3.0 10^3/uL (4.4-10.8) Red Blood Count 3.98 10^6/uL (4.5-5.90) Hemoglobin 12.2 g/dL (13.5-17.5) Hematocrit 35.4 % (41.0-53.0) Mean Corpuscular Volume 88.8 fL (80.0-100.0) Mean Corpuscular Hemoglobin 30.5 pg (28.0-32.0) Mean Corpuscular Hemoglobin Concent 34.4 g/dL (32.0-36.0) Red Cell Distribution Width 14.7 % (11.8-14.3) Platelet Count 168 10^3/uL (140-450) Mean Platelet Volume 8.3 fL (6.9-10.8) Neutrophils (%) (Auto) 58.9 % (37.0-80.0) Lymphocytes (%) (Auto) 21.9 % (10.0-50.0) Monocytes (%) (Auto) 13.9 % (0.0-12.0) Eosinophils (%) (Auto) 5.0 % (0.0-7.0) Basophils (%) (Auto) 0.3 % (0.0-2.0) Neutrophils # (Auto) 1.8 10 ^3/uL (1.6-8.6) Lymphocytes # (Auto) 0.7 10 ^3/uL (0.4-5.4) Monocytes # (Auto) 0.4 10 ^3/uL (0-1.3) Eosinophils # (Auto) 0.1 10 ^3/uL (0-0.8) Basophils # (Auto) 0 10 ^3/uL (0-0.2) Nucleated Red Blood Cells 0.1 % Sodium Level 142 mmol/L (136-145) Potassium Level 3.5 mmol/L (3.5-5.1) Chloride Level 105 mmol/L (98-107) Carbon Dioxide Level 28 mmol/L (20-31) Anion Gap 9 (5-15) Blood Urea Nitrogen 8 mg/dL (9-23) Creatinine 0.76 mg/dL (0.700-1.30) Glomerular Filtration Rate Calc 91 mL/min (>90) BUN/Creatinine Ratio 10.5 (10.0-20.0) Serum Glucose 89 mg/dL (74-106) Calcium Level 8.4 mg/dL (8.7-10.4) Total Bilirubin 0.9 mg/dL (0.2-1.0) Aspartate Amino Transferase (AST) 12 U/L (13-40) Alanine Aminotransferase (ALT) 11 U/L (7-40) Alkaline Phosphatase 62 U/L (46-116) Total Protein 5.3 g/dL (5.7-8.2) Albumin 3.0 g/dL (3.2-4.8) Troponin I High Sensitivity 19 ng/L (</=54) Lactic Acid Level 1.6 mmol/L (0.4-2.0) Test 04/17/25 21:58 Urine Color Light-yellow (Yellow) Urine Clarity Turbid (Clear) Urine pH 6.5 (5.0-9.0) Urine Specific [place] 1.017 (1.001-1.035) Urine Protein Trace (Negative) Urine Ketones Negative (Negative) Urine Blood Trace /uL (Negative) Urine Nitrite Negative (Negative) Urine Bilirubin Negative (Negative) Urine Urobilinogen Normal mg/dL (Negative) Urine Leukocyte Esterase 3+ /uL (Negative) Urine RBC 3 /hpf (0 - 3) Urine Microscopic WBC 40 /HPF (0-3) Urine Squamous Epithelial Cells None seen /hpf (<5) Urine Bacteria Few /hpf (None Seen) Urine Mucus Few (None Seen) Urine Glucose Normal mg/dL (Normal) Other Laboratory Tests 04/21/25 06:36 Brief Hx & Hospital Course: 80-year-old male with past medical history of prostate cancer, hypertension, UTIs and indwelling catheter who presented to [facility] ED with complaint of abdominal pain. Patient reports he has been experiencing diffuse abdominal pain, unable to have bowel movement for the past 2 days, associated with nausea, and episode of vomiting. The patient comes in with a chronic Hinton catheter put in by urologist . The patient reports that over the last couple of days prior to emergency room arrival, his catheter began to feel uncomfortable which prompted him to come to the emergency room. 04/19: Cardiology has evaluated the patient and deemed acceptable risk for moderate surgery. Echocardiogram showing EF 65%, moderate LVH, normal RV, no common done any valvular abnormalities, RVSP 30. Cardiac clearance was done but the surgery as outpatient. Pending urine culture, continuing Zosyn, patient vital signs stable. Hinton to remain in place. Needs to follow up with Urology for Hinton. 04/20: Communicated with micro lab, culture is growing ESBL. We will insert midline, escalated to meropenem pending sensitivities. Diagnosis: Acute complicated cystitis, with chronic Hinton Chronic Hinton for BPH Chronic prostatitis, possible Hypertension Benign prostatic hyperplasia History of tobacco use plan: continue home meds finish ertapenem iv once daily, by midline, HH to aid, for 10 days, continue hinton with leg bag. close followup with urology followup with PCP to review discharge. Condition at Discharge: Fair Final Diagnosis/Problems List Acute complicated cystitis, with chronic Hinton Chronic Hinton for BPH Chronic prostatitis, possible Hypertension Benign prostatic hyperplasia History of tobacco use Discharge Disposition: Home with Health Services Discharge Instruct/Medications Scheduled Finasteride (Finasteride), 5 MG PO DAILY Lisinopril (Lisinopril), 20 MG PO DAILY, (Reported) Naloxone HCl (Narcan), 4 MG NA CLINICAL CARE COORDINATOR Omeprazole (Gnp Omeprazole), 20 MG PO DAILY, (Reported) Tamsulosin Hcl (Flomax), 1 CAP PO DAILY Scheduled PRN Acetaminophen (Acetaminophen), 500 MG PO Q4HP PRN Hydrocodone-Acetaminophen (Hydrocodone Bitartrate/AC 5-325 mg), 1 TAB PO Q8HP PRN Ondansetron Odt 4MG Tab (Zofran Po), 4 MG PO Q6HP PRN Discharge Statement: "Patient was advised to return to the ER or call 911 if any headaches, dizziness, shortness of breath, chest pain, abdominal pain, bleeding, fevers, or worsening of medical condition. Patient was counseled about treatment plan, medications, possible side effects, patientverbalized understanding. All questions were answered to the best of my ability. This discharge took greater then 30 minutes in planning, reviewing documentation, counseling the patient, and discussing with other team members." ASSESSMENT ASSESSMENT Assessment Date of Service: Apr 21, 2025 Billing Provider: VILLA DAVIDSON MD Common Visit Codes: 44671-QVZ/OBS DISCH DAY >30min VILLA DAVIDSON MD Apr 21, 2025 08:02
[2025-04-21] MEDS: ERTAPENEM SOD INJ 1 GM in SODIUM CHL 0.9% 50 ML IV SCH (12:10)
[2025-04-21 13:00] VITALS: BP 138/80; PULSE 79; RESP 20; TEMP 99.3; O2SAT 98
[2025-04-21 16:13] VITALS: BP 156/81; PULSE 75; RESP 20; TEMP 99.8; O2SAT 97
== END 2025-04-21 16:32 | disposition home health service (06) | DRG 690 ==
LOC: ER 21:49 → EDBD 21:49 → EDSEX 21:49 → OVERFLOW 04-18 03:26 → TELE-WESTW 04-18 16:48
PROVIDERS: ADMIT Student in an Organized Health Care Education/Training Program; ATTEND Student in an Organized Health Care Education/Training Program
PROC: 05HC33Z Insertion of Infusion Device into Left Basilic Vein, Percutaneous Approach (ICD-10-PCS; principal; 2025-04-20)
PROC: B54NZZA Ultrasonography of Left Upper Extremity Veins, Guidance (ICD-10-PCS; 2025-04-20)
DX: N30.00 Acute cystitis without hematuria (principal); N40.0 Benign prostatic hyperplasia without lower urinary tract symptoms; K59.00 Constipation, unspecified; N41.1 Chronic prostatitis; I10 Essential (primary) hypertension; Z90.49 Acquired absence of other specified parts of digestive tract; Z82.5 Family history of asthma and other chronic lower respiratory diseases; Z82.49 Family history of ischemic heart disease and other diseases of the circulatory system; Z87.891 Personal history of nicotine dependence; Z85.46 Personal history of malignant neoplasm of prostate; Z79.899 Other long term (current) drug therapy
CPT/HCPCS: 36415; 71045; 74176; 80048; 80053; 81001; 83605; 84484; 85025; 87040; 87086; 87088; 87186; 93005; 93306; 96365; 96368; G0378; J1335; J2185; J2405; J2470; J2543; J3480

== ENCOUNTER 2025-04-24 04:46 | Emergency (ER) | payer OTHER, MEDICAID ==
[~2025-04-24] VITALS: Ht 160 cm; Wt 55.5 kg
--- NOTE | 2025-04-24 06:48 | ED.PDOC ---
History of Present Illness HPI Comments This is an 80-year-old gentleman that comes in with malfunctioning PICC line. Patient receiving IV antibiotics at home with home health. Today his line has not been working.. Per patient he gets a dose every single day.. No other complaints Chief Complaint: Tube Replacement Time Seen by MD: 06:25 Primary Care Provider: UNKNOWN Reviewed Notes: Nurses Notes, Medications, Allergies Allergies: Coded Allergies: NO KNOWN ALLERGIES (Unverified , 03/10/18) Home Meds Active Scripts Ondansetron Odt 4MG Tab (ZOFRAN PO) 4 Mg Tb, 4 MG PO Q6HP PRN, #20 TAB ODT TAB-DISSOLVE IN MOUTH, THEN SWALLOW Prov:MARLEN VENEGAS PAC 03/14/25 Acetaminophen (Acetaminophen) 500 Mg Tab, 500 MG PO Q4HP PRN, #30 TAB Prov:MARLEN VENEGAS PAC 03/14/25 Naloxone HCl (Narcan) 4 Mg/0.1 Ml Spr, 4 MG NA SODIUM CHLORITE OPERATOR, #2 SPRAY Prov:BHAVANA HORNE MD 01/29/25 Hydrocodone-Acetaminophen (Hydrocodone Bitartrate/AC 5-325 mg) 1 Tab Tab, 1 TAB PO Q8HP PRN, #10 TAB Prov:BHAVANA HORNE MD 01/29/25 Finasteride (Finasteride) 5 Mg Tab, 5 MG PO DAILY for 30 Days, #30 TAB Prov:BHAVANA HORNE MD 01/29/25 Tamsulosin Hcl (Flomax) 0.4 Mg Cap, 1 CAP PO DAILY, #90 CAP 0 Refills Prov:ANICETO LUJAN MD 04/19/21 Reported Medications Omeprazole (Gnp Omeprazole) 20 Mg Tab, 20 MG PO DAILY, TAB 03/24/25 Lisinopril (Lisinopril) 20 Mg Tab, 20 MG PO DAILY for 30 Days, MG 03/24/25 Information Source: Patient Mode of Arrival: Ambulatory Past Medical History PAST MEDICAL HISTORY: Cancer, HTN, UTI'S Surgical History: Cholecystectomy, Hernia Repair Family History Family History: Reviewed,noncontributory to illness Social History Smoker: Non-Smoker Alcohol: Denies ETOH Use Drugs: Denies Drug Use Lives In: Home All Other Systems: Reviewed and Negative Physical Exam General Appearance: No Apparent Distress, Normal HEENT: Normal ENT Inspection, PERRL/EOMI, Pharynx Normal Neck: Full Range of Motion, Non-Tender, Normal, Normal Inspection Respiratory: Lungs Clear, None, No Respiratory Distress, Normal Breath Sounds Cardiovascular: No Edema, Regular Rate/Rhythm Breast Exam: Deferred Gastrointestinal: Non Tender, Soft Genitalia: Deferred Pelvic: Deferred Rectal: Deferred Extremities: Normal inspection, Normal range of motion, Non-tender Neurologic: Alert, Normal Affect, Normal Mood Cerebellar Function: NOT DONE Reflexes: NOT DONE Skin: Dry, Warm Lymphatic: No Adenopathy Was a procedure done? Was a procedure done?: No Differential Dx Considerations may include: PICC line occlusion versus mechanical dysfunction. X-Ray, Labs, Meds, VS Vital Signs Date Time Temp Pulse Resp B/P (MAP) Pulse Ox O2 Delivery O2 Flow Rate FiO2 04/24/25 07:03 97.3 63 19 154/82 (106) 99 97.3 04/24/25 07:03 63 19 99 Room Air 04/24/25 04:53 98.1 63 19 121/71 96 98.1 X-Ray, Labs, Meds, VS Comment Patient seen and examined by me. Patient does have a PICC line in the left upper arm that is nonfunctioning. There is no PICC line service here available at the hospital today in his no Interventional Radiology available at the hospital today. Patient was told that we will put in a peripheral line a whole go home with that for the next two days he will return on Saturday to the ER and we can call the PICC nurse to come and evaluate the And see if iron use to do another tube at that time.. Patient is happy with that plan of care... Peripheral line was placed successfully by the RN prepa ration for discharge. Time of 1ST Reevaluation: 07:09 Reevaluation 1ST: Improved Patient Education/Counseling: Diagnosis, Treatment, Need For Follow Up Family Education/Counseling: Diagnosis, Treatment, Need For Follow Up SEPSIS Sepsis Screen Date sepsis recognized/suspect: Apr 24, 2025 Time Sepsis recognized/suspect: 0457 Recent Procedure: Yes On Antibiotic Therapy: Yes Respiratory Rate >20: No Heart Rate >90: No Temp<36 C (96.8 F) or >38.3 C: No SBP <90 or MAP <65 mmHG: No New Acute Mental Status Change: No Is the patient on CPAP, BIPAP,: No Physician Orders Heplock Iv (04/24/25 ) Vital Signs Date Time Temp Pulse Resp B/P (MAP) Pulse Ox O2 Delivery O2 Flow Rate FiO2 04/24/25 07:03 97.3 63 19 154/82 (106) 99 97.3 04/24/25 07:03 63 19 99 Room Air 04/24/25 04:53 98.1 63 19 121/71 96 98.1 Departure 1 Departure Time of Disposition: 07:09 Impression: Primary Impression: Occluded PICC line Disposition: 01 HOME / SELF CARE / HOMELESS Condition: Good Additional Instructions: Please use the new IV line that was placed in the ER today until Saturday Return on Saturday to the ER for evaluation with the PICC nurse Continue current antibiotics at home Discharged With: Self, Spouse Critical Care Note Critical Care Time?: No Stability Stability form required: HAY Zaragoza Apr 24, 2025 06:48
[2025-04-24 07:03] VITALS: BP 154/82; PULSE 63; RESP 19; TEMP 97.3; O2SAT 99
== END 2025-04-24 07:29 | disposition home or self-care (01) ==
LOC: ER 04:46
DX: T82.514A Breakdown (mechanical) of infusion catheter, initial encounter (principal); I10 Essential (primary) hypertension; Z79.899 Other long term (current) drug therapy; Z87.440 Personal history of urinary (tract) infections; Z90.49 Acquired absence of other specified parts of digestive tract; Z98.890 Other specified postprocedural states; Y71.2 Prosthetic and other implants, materials and accessory cardiovascular devices associated with adverse incidents

== ENCOUNTER 2025-04-26 11:17 | Emergency (ER) | payer OTHER, MEDICAID ==
[~2025-04-26] VITALS: Ht 160 cm; Wt 55.3 kg
[2025-04-26 11:19] VITALS: BP 117/66; PULSE 73; RESP 18; TEMP 97.7; O2SAT 97
--- NOTE | 2025-04-26 11:48 | ED.PDOC ---
History of Present Illness HPI Comments 80-year-old male who presents to the ED with a complaint of tube replacement Patient states he was discharged on Saturday 4 days prior with midline and given antibiotics Patient states he was told to come back the following day to receive IV ertapenem via midline Patient states he receive antibiotics on Saturday via midline on left arm Patient states he came back to the ED on Saturday and states midline on left arm was occluded and midline on right arm was established and received antibiotics Patient states PICC line nurse is not available on weekend and midline was not removed on left arm Patient states he came today to receive IV antibiotics and have midline nurse remove midline Past medical history: Acute complicated cystitis(growing ESBL), with chronic Elena, Chronic Elena for BPH,Chronic prostatitis, Hypertension Benign prostatic hyperplasia History of tobacco use Past surgical history: Cholecystectomy, Hernia Repair, Prostatectomy medications:IV meropenem 20 male social history: Denies drugs denies EtOH endorses tobacco use allergies: Denies Hines: PICC line. LUE HPI: Poor Historian. REVIEW OF SYSTEMS: CONSTITUTIONAL: Denies acute: fever, diaphoresis, chills, generalized weakness. HEAD: Denies acute: headache, photophobia Eyes: Denies acute: Double vision, vision loss, eye pain, eye discharge. EARS: Denies acute: tinnitus, hearing loss, ear discharge, ear pain, THROAT: Denies acute: sore throat, swelling, difficulty swallowing , pain with swallowing, change in voice. NECK: Denies acute: neck pain, neck swelling, stiff neck. HEART: Denies acute : chest pain, palpitations, LUNGS: Denies acute: SOB, wheezing, cough, hemoptysis ABDOMEN: Denies acute: abdominal pain, Nausea, Vomiting, diarrhea, melena , hematemesis, hematochezia SKIN: Denies acute: rash, redness, lesions, itchiness. EXTREMITIES: Denies acute: calf pain, numbness, tingling, weakness, denies pain in extremity. Denies acute: Low back pain. Neuro: Denies acute: focal neurological deficit, motor or sensory focal neurological deficit, tremors, seizure like activity, confusion, dizziness, change in mental status, loss of bowel or bladder function, cauda equina like symptoms. : Denies acute: dysuria, hematuria, flank pain, increase in urinary frequency. PSYCH: Denies acute: hallucination, suicidal ideation, homicidal ideation. PHYSICAL EXAM: General: ----no----acute distress, awake and alert. Head: normocephalic, atraumatic. Neck: supple, trachea is midline, no swelling. Throat: Normal phonation. Eyes:, no erythema, no purulent discharge, no proptosis, no icterus. Heart: regular rate, regular rhythm, no significant murmur appreciated. Lungs: no apparent respiratory distress, Able to speak in full sentences. No wheezing, no rhonchi, no crackles. No stridors Clear to auscultation bilaterally. Abdomen: non tender to palpation, non distended, soft, no guarding, no rebound, + bowel sounds. Neuro: Awake, Alert, oriented to name, self, situation, follows commands GCS=15. Speech is normal. Skin: no petechia, no purpura, no cyanosis, non-pale, not jaundice. Lower extremities: --no - Pitting edema no deformity, no focal swelling, no calf TTP. Makes eye contact. moves all four extremities. Face: no apparent facial droop. Elena catheter in place with normal urine color. Ambulating in the ED independently. With the left upper extremity PICC/midline Noted right upper extremity IV access. ED COURSE: DISCLAIMER: This medical document was created using an electronic medical record system with voice recognition software and computerized dictation system. Although this document has been carefully reviewed, there might still be some phonetic and typographical errors. Occasional wrong-word or "sound-alike" substitutions may have occurred due to the inherent limitations of voice recognition software. These areas are purely typographical due to imperfections of the software programs and do not reflect any compromise in the patient's medical care. Please read the chart carefully and recognize, using context, where these substitutions have occurred. Chief Complaint: Tube Replacement Time Seen by MD: 11:55 Primary Care Provider: UNKNOWN Reviewed Notes: Medications, Allergies Allergies: Coded Allergies: NO KNOWN ALLERGIES (Unverified , 03/10/18) Home Meds Active Scripts Ondansetron Odt 4MG Tab (ZOFRAN PO) 4 Mg Tb, 4 MG PO Q6HP PRN, #20 TAB ODT TAB-DISSOLVE IN MOUTH, THEN SWALLOW Prov:MARLEN VENEGAS PAC 03/14/25 Acetaminophen (Acetaminophen) 500 Mg Tab, 500 MG PO Q4HP PRN, #30 TAB Prov:MARLEN VENEGAS PAC 03/14/25 Naloxone HCl (Narcan) 4 Mg/0.1 Ml Spr, 4 MG NA CHEESE GRADER, #2 SPRAY Prov:BHAVANA HORNE MD 01/29/25 Hydrocodone-Acetaminophen (Hydrocodone Bitartrate/AC 5-325 mg) 1 Tab Tab, 1 TAB PO Q8HP PRN, #10 TAB Prov:BHAVANA HORNE MD 01/29/25 Finasteride (Finasteride) 5 Mg Tab, 5 MG PO DAILY for 30 Days, #30 TAB Prov:BHAVANA HORNE MD 01/29/25 Tamsulosin Hcl (Flomax) 0.4 Mg Cap, 1 CAP PO DAILY, #90 CAP 0 Refills Prov:ANICETO LUJAN MD 04/19/21 Reported Medications Omeprazole (Gnp Omeprazole) 20 Mg Tab, 20 MG PO DAILY, TAB 03/24/25 Lisinopril (Lisinopril) 20 Mg Tab, 20 MG PO DAILY for 30 Days, MG 03/24/25 Information Source: Patient, Spouse Mode of Arrival: Ambulatory Past Medical History PAST MEDICAL HISTORY: Cancer, HTN, UTI'S Surgical History: Cholecystectomy, Hernia Repair Family History Family History: Reviewed,noncontributory to illness Social History Smoker: Non-Smoker Alcohol: Denies ETOH Use Drugs: Denies Drug Use Lives In: Home Was a procedure done? Was a procedure done?: No Differential Dx Considerations may include: DVT, PICC line occlusion, infection, cellulitis. X-Ray, Labs, Meds, VS Vital Signs Date Time Temp Pulse Resp B/P (MAP) Pulse Ox O2 Delivery O2 Flow Rate FiO2 04/26/25 11:19 97.7 73 18 117/66 97 97.7 Time of 1ST Reevaluation: 14:19 (PICC line nurse came and evaluated the line. She fixed it. We will give the patient his dose of his ertapenem IV antibiotics before he leaves to go home to resume home health.) Reevaluation 1ST: N/A Patient Education/Counseling: Diagnosis, Treatment Family Education/Counseling: Diagnosis, Treatment Comments MDM: patient presented with the above HPI.---occluded PICC line ev aluation---workup was initiated. patient was found with the above mentioned diagnosis. the following medications were ordered: please refer to order lists of meds and tests obtained by myself Dr. Camarena. Patient ED course and VS have been stabilized. Patient has been reassessed in the ED and remained in a stable condition. Pertinent incidental findings were discussed with the patient and/or family. Patient/family voices understanding and is agreeable with plan. Patient has been observed in the ED adequate length of time to insure improvement/stability. Escalation of care considered: Consideration of escalation to observation or admission Patient was DISCHARGED home in a stable condition. All the reports of any imaging studies that were ordered by myself were reviewed by myself. SEPSIS Sepsis Screen Date sepsis recognized/suspect: Apr 26, 2025 Time Sepsis recognized/suspect: 1120 Recent Procedure: No On Antibiotic Therapy: Yes Respiratory Rate >20: No Heart Rate >90: No Temp<36 C (96.8 F) or >38.3 C: No SBP <90 or MAP <65 mmHG: No New Acute Mental Status Change: No Is the patient on CPAP, BIPAP,: No Physician Orders PICC (04/26/25 11:49) * Picc Line Consult (04/26/25 11:49) Vital Signs Date Time Temp Pulse Resp B/P (MAP) Pulse Ox O2 Delivery O2 Flow Rate FiO2 04/26/25 11:19 97.7 73 18 117/66 97 97.7 Departure 1 Departure Time of Disposition: 14:20 Impression: Primary Impression: Occluded PICC line Disposition: 01 HOME / SELF CARE / HOMELESS Condition: Stable Additional Instructions: Additional instructions: Please read all instructions provided in this packet carefully. You MUST follow-up with your primary care/family doctor in 1 to 2 days. If you are unable to see your primary care/family doctor, please return to our emergency room for re-assessment and re-evaluation in 1 to 2 days. Return to the emergency room here in our facility or to the nearest ER [facility] if your symptoms change or worsen. CONSULTATIONS: you MUST Follow-up for consultation as soon as possible with: -urology in 1-2 days. Please call for appointment You MUST call the consultants office yourself to make an appointment. You may need to arrange that through your insurance and/or your primary/family doctor. If you are unable to see the building consultant in 1 to 2 days, you must return to our emergency room (or any other ER of your choice) for re-assessment and re- evaluation. Adequate fluid hydration. Although you have been discharged from the Emergency Department, this does not mean that you have a "clean bill of health". No definitive diagnosis for your symptoms has been made today. It is possible that you are in the process of developing a serious illness. This is why you must return to the ED without fail if any new or worsening symptoms develop. Continue taking your IV antibiotics at home as arranged with as prescribed. Discharged With: Self, Relative Critical Care Note Critical Care Time?: No I personally scribed for BRIANNA CAMARENA DO ([email or web address]) on 04/26/25 at 11:48. Electronically submitted by Pamela Joseph ([email or web address]). I personally scribed for BRIANNA CAMARENA DO ([email or web address]) on 04/26/25 at 12:08. Electronically submitted by Pamela Joseph ([email or web address]). BRIANNA CAMARENA DO Apr 26, 2025 11:48
[2025-04-26] MEDS: ERTAPENEM SOD INJ 1 GM in SODIUM CHL 0.9% 50 ML IV ONE (16:31)
== END 2025-04-26 18:35 | disposition home or self-care (01) ==
LOC: ER 11:17
DX: T82.898A Other specified complication of vascular prosthetic devices, implants and grafts, initial encounter (principal); I10 Essential (primary) hypertension; N40.0 Benign prostatic hyperplasia without lower urinary tract symptoms; Z79.899 Other long term (current) drug therapy; Z90.49 Acquired absence of other specified parts of digestive tract; Z90.79 Acquired absence of other genital organ(s)
CPT/HCPCS: 96365; 99284; J1335

== ENCOUNTER 2025-05-11 11:23 | Inpatient (IN) | payer MEDICARE, MEDICAID ==
[2025-05-10 12:39] LABS: Urine Budding Yeast MODERATE /hpf (None Seen); Urine Protein, UAD TRACE (Negative)
[2025-05-10 12:44] LABS: Hematocrit 44.8 % (41.0-53.0); Hemoglobin 15.0 g/dL (13.5-17.5); Mean Corpuscular Hemoglobin 30.3 pg (28.0-32.0); Mean Corpuscular Volume 90.5 fL (80.0-100.0); Nucleated Red Blood Cells % 0.1 %
[2025-05-10 12:57] LABS: INR 1.01 (0.9-1.15); Partial Thromboplastin Time 26.0 SEC (24.5-34.5); Prothrombin Time 10.7 sec (9.3-11.8)
[2025-05-10 13:07] LABS: Alanine Aminotransferase 14 U/L (7-40); Albumin 3.9 g/dL (3.2-4.8); Alkaline Phosphatase 78 U/L (46-116); Anion Gap 7 (5-15); BUN/Creatinine Ratio 14.0 (10.0-20.0); Bilirubin, Total 0.7 mg/dL (0.2-1.0); Blood Urea Nitrogen 12 mg/dL (9-23); Calcium 8.8 mg/dL (8.7-10.4); Carbon Dioxide 31 mmol/L (20-31); Chloride 104 mmol/L (98-107); Potassium 4.2 mmol/L (3.5-5.1); Sodium 142 mmol/L (136-145); Total Protein 6.6 g/dL (5.7-8.2)
[2025-05-10 13:13] LABS: Glucose 114 mg/dL (74-106)
[~2025-05-11] VITALS: Ht 160 cm; Wt 59.6 kg
[~2025-05-11 11:23] MED LIST changes: -ACET500T58 PO; -HYDR-4902 PO; -LISI20TA56 PO; -NALO4SPR2; -OMEP20TA PO; -ZOFR4T PO
[2025-05-11] MEDS ORDERED: METOCLOPRAMIDE HCL 5MG/ml INJ 2ml VIAL IV PRN (17:00)
[2025-05-11] MEDS ORDERED: HYDROmorphone HCL 2 MG/ML VL/or syr IV PRN (17:00)
[2025-05-11] MEDS ORDERED: PROPOFOL 10 MG/ML 20 ML IV ONE (17:29)
[2025-05-11] MEDS ORDERED: fentaNYL CITRATE 100 MCG/2 ML VL ONE (17:29)
[2025-05-11] MEDS ORDERED: MIDAZOLAM HCL 2MG/2ML 2ml VIAL (1mg/ml) ONE (17:29)
[2025-05-11] MEDS ORDERED: METOCLOPRAMIDE HCL 5MG/ml INJ 2ml VIAL ONE (17:30)
[2025-05-11] MEDS: CIPROFLOXACIN 400MG/200ML 200 ML IV ONE (17:30)
[2025-05-11] MEDS ORDERED: ONDANSETRON HCL 4 MG/2 ML VIAL ONE (17:30)
[2025-05-11] MEDS ORDERED: SODIUM CHLORIDE LOCK 10 ML ONE (17:30)
[2025-05-11] MEDS ORDERED: HYDROmorphone HCL 2 MG/ML VL/or syr ONE (18:05)
--- NOTE | 2025-05-11 18:44 | DVHNC2 ---
Procedure - OPERATIVE REPORT Pre-op. Diagnosis: BPH (600.01) LUTs/HORN Post-op. Diagnosis: Same as pre-op diagnosis Operation: Transurethral resection/vaporization of prostate gland (BUTTON) Anesthesia: General Indications: Patient has symptomatic BPH with LUTs and bladder outlet obstruction. The indications, risks, complications, alternatives and benefits of transurethral vaporization/resection of prostate gland are discussed with patient. All questions were encouraged and answered. He is aware of specific risk/complications including but not limited to infection, bleeding, urinary incontinence, impotence, retrograde ejaculation, recurrent scar formation (strictures) and possible need for additional therapy(-ies). He is also aware of the alternative of this procedure including conservative management, medical therapy, minimally invasive procedures such as TUNA, TUMT, Urolift, and other forms of prostatectomy such as laser enucleation and open simple prostatectomy. Patient is competent and understands the discussion. He elected to proceed. Details of Procedure: Button TURP: After administration of anesthesia in the lithotomy position, area of genitalia was prepped and draped in usual sterile fashion. The 26F resectoscope sheath is introduced into the bladder under direct vision. Using the Olympus bipolar Button resecting element and NS irrigation, prostate gland was electrodesiccated in systematic fashion using the standard cautery settings from the bladder neck to verumontanum, taking care not to injure the external sphincter. The ureteric orifices are noted and avoided of any thermal injury. [address] Elena catheter is placed for postoperative irrigation and drainage of bladder. Patient tolerated the procedure well. He was awaken and taken to RR in stable condition. All instrument counts were correct at the end of the procedure. Specimens: The prostatic tissue specimens are sent to pathology for evaluation. Complications: None Findings: EBL: < 100ml CAROL MCCOLLUM MD May 11, 2025 18:44
[2025-05-11] MEDS ORDERED: OXYBUTYNIN CHL 5 MG TAB PO ONE (18:45)
[2025-05-11] MEDS ORDERED: NITROGLYCERIN 0.4 MG SL TAB SL PRN (18:45)
[2025-05-11 18:48] VITALS: PULSE 122; RESP 14; O2SAT 100
[2025-05-11] MEDS ORDERED: hydrALAZINE HCL 20 MG/ML VL IV PRN (19:00)
[2025-05-11] MEDS ORDERED: MORPHINE SULFATE 4 MG/ML SYR/VIAL IV PRN (19:00)
[2025-05-11 19:05] VITALS: PULSE 118; RESP 13; O2SAT 100
[2025-05-11] MEDS: ACETAMINOPHEN IV 1000 MG/100ML (10MG/ML) IV ONE (19:27)
[2025-05-11] MEDS: ONDANSETRON HCL 4 MG/2 ML VIAL IV PRN ×2 (20:11→23:52)
[2025-05-11 20:48] VITALS: BP 146/83; PULSE 101; RESP 19; TEMP 97.9; O2SAT 97
[2025-05-11 21:55] VITALS: PULSE 66; RESP 18; O2SAT 96
[2025-05-11 21:58] VITALS: BP 146/83; PULSE 101; RESP 19; TEMP 97.9; O2SAT 97
[2025-05-11] MEDS: ceFAZolin 1GM/50ML 50 ML IV SCH (22:54)
[2025-05-11] MEDS: diphenhydrAMINE HCL 50 MG/1 ML VL IV ONE (23:15)
[2025-05-12] VITALS (7 sets, daily range): BP systolic 105–163; BP diastolic 60–77; PULSE 58–92; RESP 16–18; TEMP 97.1–98.7; O2SAT 95–99
--- NOTE | 2025-05-12 08:29 | DVHDS2 ---
New Physician D'charge PN Admitting Diagnosis Admitting Diagnosis BPH Urinary retention Discharge Diagnosis same Operations or Procedures TURP Reason(s) For Hospitalization Surgery Hospital Course Patient was admitted for observation due to late hour of his surgery. He c/o nausea and vomitting during the night. Zofran given. CBI will be stopped this morning. Will discharge home with Elena catheter and have him return to clinic tomorrow for removal. Treatment Plan Discharge Condition of Discharge Fair Disposition Home Discharge Instructions Diet: Regular Activity: Light activity Activity comment: Elena care Medications: given Follow Up Care Follow Up/Referral: 05/13/25 0900 Discharge Statement: "Patient was advised to return to the ER or call 911 if any headaches, dizziness, shortness of breath, chest pain, abdominal pain, bleeding, fevers, or worsening of medical condition. Patient was counseled about treatment plan, medications, possible side effects, patientverbalized understanding. All questions were answered to the best of my ability. This discharge took greater then 30 minutes in planning, reviewing documentation, counseling the patient, and discussing with other team members." CAROL MCCOLLUM MD May 12, 2025 08:29
[2025-05-12] MEDS ORDERED: OXYCODONE W/ ACETAMINOPHEN 5/325MG TABLET PO ONE (16:30)
[2025-05-12] MEDS ORDERED: ACETAMINOPHEN 325 MG TAB PO ONE (22:15)
[2025-05-13] VITALS (7 sets, daily range): BP systolic 97–139; BP diastolic 60–88; PULSE 67–78; RESP 16–18; TEMP 97.1–98.8; O2SAT 96–98
--- NOTE | 2025-05-13 09:44 | DVHDS2 ---
Discharge Summary Date of Admission May 11, 2025 at 18:44 Date of Discharge: May 13, 2025 Labs/Diagnostic Data: Laboratory Results Test 05/10/25 12:20 White Blood Count 5.7 10^3/uL (4.4-10.8) Red Blood Count 4.95 10^6/uL (4.5-5.90) Hemoglobin 15.0 g/dL (13.5-17.5) Hematocrit 44.8 % (41.0-53.0) Mean Corpuscular Volume 90.5 fL (80.0-100.0) Mean Corpuscular Hemoglobin 30.3 pg (28.0-32.0) Mean Corpuscular Hemoglobin Concent 33.4 g/dL (32.0-36.0) Red Cell Distribution Width 14.4 % (11.8-14.3) Platelet Count 198 10^3/uL (140-450) Mean Platelet Volume 8.5 fL (6.9-10.8) Neutrophils (%) (Auto) 74.3 % (37.0-80.0) Lymphocytes (%) (Auto) 18.1 % (10.0-50.0) Monocytes (%) (Auto) 6.6 % (0.0-12.0) Eosinophils (%) (Auto) 0.9 % (0.0-7.0) Basophils (%) (Auto) 0.1 % (0.0-2.0) Neutrophils # (Auto) 4.2 10 ^3/uL (1.6-8.6) Lymphocytes # (Auto) 1.0 10 ^3/uL (0.4-5.4) Monocytes # (Auto) 0.4 10 ^3/uL (0-1.3) Eosinophils # (Auto) 0 10 ^3/uL (0-0.8) Basophils # (Auto) 0 10 ^3/uL (0-0.2) Nucleated Red Blood Cells 0.1 % Prothrombin Time 10.7 sec (9.3-11.8) Prothrombin Time INR 1.01 (0.9-1.15) Activated Partial Thromboplast Time 26.0 SEC (24.5-34.5) Urine Color Light-yellow (Yellow) Urine Clarity Turbid (Clear) Urine pH 6.0 (5.0-9.0) Urine Specific [place] 1.017 (1.001-1.035) Urine Protein Trace (Negative) Urine Ketones Negative (Negative) Urine Blood Trace /uL (Negative) Urine Nitrite Negative (Negative) Urine Bilirubin Negative (Negative) Urine Urobilinogen Normal mg/dL (Negative) Urine Leukocyte Esterase 3+ /uL (Negative) Urine RBC 38 /hpf (0 - 3) Urine Microscopic WBC 346 /HPF (0-3) Urine Squamous Epithelial Cells None seen /hpf (<5) Urine Bacteria Few /hpf (None Seen) Urine Mucus Few (None Seen) Urine Yeast (Budding) Moderate /hpf (None Seen) Urine Glucose Normal mg/dL (Normal) Sodium Level 142 mmol/L (136-145) Potassium Level 4.2 mmol/L (3.5-5.1) Chloride Level 104 mmol/L (98-107) Carbon Dioxide Level 31 mmol/L (20-31) Anion Gap 7 (5-15) Blood Urea Nitrogen 12 mg/dL (9-23) Creatinine 0.86 mg/dL (0.700-1.30) Glomerular Filtration Rate Calc 88 mL/min (>90) BUN/Creatinine Ratio 14.0 (10.0-20.0) Serum Glucose 114 mg/dL (74-106) Calcium Level 8.8 mg/dL (8.7-10.4) Total Bilirubin 0.7 mg/dL (0.2-1.0) Aspartate Amino Transferase (AST) 18 U/L (13-40) Alanine Aminotransferase (ALT) 14 U/L (7-40) Alkaline Phosphatase 78 U/L (46-116) Total Protein 6.6 g/dL (5.7-8.2) Albumin 3.9 g/dL (3.2-4.8) Other Laboratory Tests 05/10/25 12:20 Brief Hx & Hospital Course: SEE DICTATED NOTE Condition at Discharge: Fair Final Diagnosis/Problems List TURP Discharge Disposition: Home Discharge Instruct/Medications Diet: Regular Activity: Light activity Activity comment: [facility] care Follow Up/Referral: 05/13/25 0900 Medications: given PÉREZ DONNELLY GONZALEZ AND LEG BAG Scheduled Finasteride (Finasteride), 5 MG PO DAILY Tamsulosin Hcl (Flomax), 1 CAP PO DAILY Discharge Statement: "Patient was advised to return to the ER or call 911 if any headaches, dizziness, shortness of breath, chest pain, abdominal pain, bleeding, fevers, or worsening of medical condition. Patient was counseled about treatment plan, medications, possible side effects, patientverbalized understanding. All questions were answered to the best of my ability. This discharge took greater then 30 minutes in planning, reviewing documentation, counseling the patient, and discussing with other team members." ASSESSMENT ASSESSMENT Assessment TURP Date of Service: May 13, 2025 Billing Provider: VICTOR MANUEL HEADLEY MD Common Visit Codes: 93244-MEM/OBS DISCH DAY >30min Secondary Visit Codes: 33709-[id number] CARE PLAN 30 MINUTES VICTOR MANUEL HEADLEY MD May 13, 2025 09:44
--- NOTE | 2025-05-13 09:54 | DVHDS ---
DATE OF DISCHARGE: 05/13/2025 HISTORY OF PRESENT ILLNESS: The patient is an 80-year-old gentleman who was admitted for BPH and need for prostate surgery. The patient has previous history of BPH. The patient also has history of hypertension and UTIs. HOSPITAL COURSE: The patient did well postoperatively. He was seen by Dr. Barcenas. The patient had evidence of a UTI. The patient will now be discharged home to resume his home medications. Urine culture was contaminated. The patient will be discharged with medications as per Urology. He will be discharged with a Elena and leg bag. FINAL DIAGNOSES: Therefore: * Hypertension. * BPH. * History of prostate cancer. * Status post TURP for bladder outlet obstruction. ADVANCED CARE PLANNING: The patient is a full code-Time spent was 18 minutes. MD ELI Young/GUERITA TID: [id number] RECEIPT: [id number] MTDD
[2025-05-13] MEDS: DOCUSATE SOD 100 MG CAP PO ONE (13:02)
[2025-05-13] MEDS: POLYETHYLENE GLYCOL 17 GM PWDR PO ONE (13:02)
[2025-05-13] MEDS: ONDANSETRON HCL 4 MG/2 ML VIAL IV PRN (13:03)
== END 2025-05-13 18:40 | disposition home or self-care (01) | DRG 714 ==
LOC: SUR 11:23 → OVERFLOW 18:44 → WEST WING 20:48 → CENTRAL 05-12 09:17
PROVIDERS: ADMIT Urology; ATTEND Urology
PROC: 0VT08ZZ Resection of Prostate, Via Natural or Artificial Opening Endoscopic (ICD-10-PCS; principal; 2025-05-11 17:26)
DX: N40.1 Benign prostatic hyperplasia with lower urinary tract symptoms (principal); I10 Essential (primary) hypertension; R33.8 Other retention of urine; Z85.46 Personal history of malignant neoplasm of prostate; Z90.79 Acquired absence of other genital organ(s); N32.0 Bladder-neck obstruction; Z79.899 Other long term (current) drug therapy
CPT/HCPCS: 36415; 80053; 81001; 85025; 85610; 85730; 87081; 87086; G0378; J0131; J2250; J2405; J2704